=== PATIENT | female | born 1955 | race Caucasian/White ===

== ENCOUNTER 2019-04-12 10:26 | Outpatient (CLI) | payer OTHER, SELFPAY ==
--- NOTE | ~2019-04-12 | XR_ITS ---
EXAMINATION: XR cervical spine min 6V DATE: 04/12/2019 10:46 INDICATION: Neck pain. Left-sided radiculopathy. TECHNIQUE: 6 views of cervical spine including flexion and extension views were obtained. COMPARISON: Cervical spine radiographs 09/10/2004 FINDINGS: There is 11 degrees levoscoliosis of cervicothoracic spine. There is no abnormal motion wit h flexion or extension. Vertebral body heights are normal. There is moderately decreased disc height at C5-C6. At C5-C6, there is severe bilateral uncovertebral joint osteoarthritis. There is multilevel mild facet joint osteoarthritis. No central canal stenosis or prevertebral soft tissue swelling. IMPRESSION: 1. Moderate cervical spondylosis. 2. Cervicothoracic levoscoliosis. Reviewed, dictated and finalized at location A. EN PRINTER
== END 2019-04-12 10:27 | disposition home or self-care (01) ==
LOC: ANHIMG 10:31
PROVIDERS: PCP Emergency Medicine; Visit Provider Emergency Medicine
DX: M47.892 Other spondylosis, cervical region (principal)
CPT/HCPCS: 72052

== ENCOUNTER 2019-04-14 07:33 | Outpatient (CLI) | payer OTHER, SELFPAY ==
--- NOTE | ~2019-04-14 | MM_ITS ---
EXAMINATION: MM screening dalila BI w patricia HISTORY: Screening mammogram TECHNIQUE: Craniocaudal and mediolateral oblique 3-D tomosynthesis images were obtained and synthetic 2-D images were generated. CAD analysis was submitted and interpreted. COMPARISON: 11/23/2017, 02/06/2016, 03/30/2014 bilateral digital screening mammogram examinations BREAST PARENCHYMAL COMPOSITION: There are scattered areas of fibroglandular density. FINDINGS: Occasional bilateral benign calcifications. There is no evidence of suspicious mass, calcif ication, or architectural distortion to suggest malignancy in either breast. There has been no suspic ious interval change. IMPRESSION: 1. No mammographic evidence of malignancy. 2. Recommend routine screening mammography in one year. BI-RADS Category 2: Benign finding(s). Reviewed, dictated and finalized at location A. N [employer]
== END 2019-04-14 07:34 | disposition home or self-care (01) ==
LOC: ANHIMG 07:34
PROVIDERS: PCP Emergency Medicine; Visit Provider Emergency Medicine
DX: Z12.31 Encounter for screening mammogram for malignant neoplasm of breast (principal)
CPT/HCPCS: 77063; 77067

== ENCOUNTER 2019-05-10 07:07 | Outpatient (CLI) | payer OTHER, SELFPAY ==
--- NOTE | ~2019-05-10 | CT_ITS ---
EXAMINATION: CT lung screening DATE: 05/10/2019 07:48 INDICATION: History of smoking. Dependence. TECHNIQUE: Computed tomography (CT) of the chest was performed without intravenous contrast. The dose -length product was 160.05 mGy-cm. Automated exposure control and iterative reconstruction technique were employed. COMPARISON: Comparison to multiple prior studies sequentially, with oldest reviewed study dated 09/2016. FINDINGS: No significant thoracic lymphadenopathy. Heart size is normal. No pleural or pericardial ef fusion. Calcified granuloma left lower lung. There are emphysematous changes. There is a 2 mm subpleu ral nodule right upper lobe, likely benign. No focal airspace consolidation. No endobronchial lesions . There is diffuse idiopathic skeletal hyperostosis (DISH) of the thoracic spine. IMPRESSION: 1. Lung-RADS category 2: Benign appearance or behavior. Continue annual screening with noncontrast lo w-dose chest CT in 12 months. Reviewed, dictated and finalized at location A. IMPRESSION: 1. Lung-RADS category 2: Benign appearance or behavior. Continue annual screeni ng with noncontrast low-dose chest CT in 12 months.
== END 2019-05-10 07:08 | disposition home or self-care (01) ==
PROVIDERS: PCP Emergency Medicine; Visit Provider Emergency Medicine
DX: Z12.2 Encounter for screening for malignant neoplasm of respiratory organs (principal); Z87.891 Personal history of nicotine dependence
CPT/HCPCS: G0297

== ENCOUNTER 2019-07-13 10:34 | Outpatient (CLI) | payer OTHER, SELFPAY ==
[2019-07-13 11:20] LABS: Alanine Aminotransferase 24 U/L (4-35); Albumin Level 4.2 g/dL (3.5-5.1); Alkaline Phosphatase 107 U/L (38-126); Aspartate Amino Transferase 35 U/L (14-36); Bilirubin,Total 0.6 mg/dL (0.2-1.3); Blood Urea Nitrogen 9 mg/dL (7-17); Calcium 9.3 mg/dL (8.4-10.2); Carbon Dioxide 25 mmol/L (22-30); Chloride 106 mmol/L (98-107); Cholesterol 177 mg/dL (0-200); Estimated Glomerular Filt Rate > 60; Glucose 138 mg/dL (65-105); HDL Direct 37 mg/dL; Potassium 4.1 mmol/L (3.4-5.0); Sodium 136 mmol/L (137-145); Triglycerides 216 mg/dL (<150)
[2019-07-13 11:35] LABS: LDL Cholesterol Direct 111 mg/dL
== END 2019-07-13 10:35 | disposition home or self-care (01) ==
PROVIDERS: PCP Emergency Medicine; Visit Provider Internal Medicine Cardiovascular Disease
DX: E78.5 Hyperlipidemia, unspecified (principal)
CPT/HCPCS: 36415; 80053; 80061

== ENCOUNTER 2019-07-22 10:15 | Outpatient (RCR) | payer OTHER, SELFPAY ==
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
--- NOTE | 2019-07-18 09:22 | PCPTNOTE ---
Patient did not show up for scheduled appointment this date. Called pt due to NS. She thought her appt was for 07/18. Rescheduled her for Thursday.
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
== END 2019-07-26 08:40 | disposition home or self-care (01) ==
LOC: ANHPT 10:15
PROVIDERS: PCP Emergency Medicine; Visit Provider Emergency Medicine
DX: M54.12 Radiculopathy, cervical region (principal); M54.2 Cervicalgia
CPT/HCPCS: 97014; 97110; 97140; 97162; 97530; G0283

== ENCOUNTER 2020-08-27 08:43 | Outpatient (CLI) | payer OTHER, SELFPAY ==
--- NOTE | 2020-08-27 09:02 | ECHO_ITS ---
Patient Info Name: Liseth Jones Age: 64 years : 1955 Gender: Female Ht: 65 in Wt: 218 lbs BSA: 2.17 m2 HR: 62 bpm BP: 128 / 80 mmHg Technical Quality: Fair Exam Date: 08/27/2020 9:22 AM Exam Location: [facility] Patient Status: Outpatient Admit Date: 08/27/2020 Staff Ordering Physician: Vincenzo Grier DO Editor & Co Founder: Ruma Neumann RDCS Attending Provider: Vincenzo Grier DO Referring Physician: Marvel SOLORZANO; Exam Type: CA echo doppler color flow Study Info Indications R06.00 - Dyspnea, unspecified Complete two-dimensional, color flow and Doppler transthoracic echocardiogram is performed. Summary 1. Complete two-dimensional, color flow and Doppler transthoracic echocardiogram is performed. 2. Left ventricular chamber dimension is normal. 3. Left ventricular systolic function is normal, estimated at 60-65%. 4. The left ventricular diastolic function is grade II diastolic dysfunction. 5. E/e' 9 is minimally elevated. 6. There is trace mitral valve regurgitation. Left Ventricle E/e' 9 is minimally elevated. Left ventricular chamber dimension is normal. Left ventricular systolic function is normal, estimated at 60-65%. The left ventricular diastolic function is grade II diastolic dysfunction. Right Ventricle Right ventricular chamber dimension is normal. Right ventricular systolic function is normal. Left Atria Left atrial chamber dimension is normal. Right Atria Right atrial chamber dimension is normal. Aortic Valve The aortic valve is trileaflet. There is no aortic valve stenosis. There is no aortic valve regurgitation. Pulmonic Valve There is no pulmonic regurgitation. Mitral Valve There is no mitral valve stenosis. There is trace mitral valve regurgitation. Tricuspid Valve There is no tricuspid valve regurgitation. Pericardium/Pleural There is no pericardial effusion. Inferior Vena Cava Normal inferior vena cava with >50% collapse upon inspiration consistent with normal right atrial pressure, 5 mmHg. Aorta The aortic root size at the sinus of Valsalva is normal. Left Ventricular Outflow Tract Name Value Normal LVOT 2D LVOT Diameter 1.9 cm LVOT Doppler LVOT Peak Gradient 4 mmHg LVOT Mean Gradient 2 mmHg LVOT VTI 22 cm LVOT VTI/AV VTI Ratio 1.0 LVOT Stroke Volume 62 ml LVOT CO 3.7 l/min LVOT CI 1.7 l/min/m2 Pulmonic Valve Name Value Normal RVOT Doppler RVOT Peak Gradient 1 mmHg PV Doppler PV Peak Gradient 2 mmHg Mitral Valve
[2020-08-27 09:15] LABS: Alanine Aminotransferase 27 U/L (4-35); Albumin Level 4.2 g/dL (3.5-5.1); Alkaline Phosphatase 103 U/L (38-126); Anion Gap 5 mmol/L (8-16); Aspartate Amino Transferase 34 U/L (14-36); Bilirubin,Total 0.5 mg/dL (0.2-1.3); Blood Urea Nitrogen 15 mg/dL (7-17); Calcium 9.4 mg/dL (8.4-10.2); Carbon Dioxide 26 mmol/L (22-30); Chloride 106 mmol/L (98-107); Cholesterol 210 mg/dL (0-200); Estimated Glomerular Filt Rate 56; Glucose 198 mg/dL (65-105); HDL Direct 39 mg/dL; Potassium 5.2 mmol/L (3.4-5.0); Sodium 137 mmol/L (137-145); Triglycerides 310 mg/dL (<150)
[2020-08-27 09:26] LABS: LDL Cholesterol Direct 102 mg/dL
== END 2020-08-27 08:44 | disposition home or self-care (01) ==
PROVIDERS: PCP Emergency Medicine; Visit Provider Internal Medicine Cardiovascular Disease
DX: R06.00 Dyspnea, unspecified (principal); E78.5 Hyperlipidemia, unspecified
CPT/HCPCS: 36415; 80053; 80061; 93306

== ENCOUNTER 2020-12-19 06:34 | Outpatient (CLI) | payer OTHER, SELFPAY ==
--- NOTE | ~2020-12-19 | CT_ITS ---
EXAMINATION: CT lung screening DATE: 12/19/2020 07:03 INDICATION: Personal history of nicotine dependence TECHNIQUE: Computed tomography (CT) of the chest was performed without intravenous contrast. The dose -length product was 183.97 mGy-cm. Automated exposure control and iterative reconstruction technique were employed. COMPARISON: CT dated 05/10/2019 FINDINGS: There is atherosclerosis of the aorta and coronary arteries. Heart size is normal. No signi ficant pleural or pericardial effusion. Thyroid gland is unremarkable. No mediastinal lymphadenopathy . Upper abdomen is unremarkable. No pneumothorax. Mild emphysema. No endobronchial lesions. 2 mm righ t upper lobe nodule unchanged. There are a few additional 1-2 mm nodules. No focal consolidation. The re is diffuse idiopathic skeletal hyperostosis (DISH) of the thoracic spine. Accentuated thoracic kyp hosis. No focal lytic or blastic lesions. IMPRESSION: 1. Lung-RADS category 2: Benign appearance or behavior. Continue annual screening with noncontrast lo w-dose chest CT in 12 months. Reviewed, dictated and finalized at location B. IMPRESSION: 1. Lung-RADS category 2: Benign appearance or behavior. Continue annual screeni ng with noncontrast low-dose chest CT in 12 months.
== END 2020-12-19 06:35 | disposition home or self-care (01) ==
LOC: ANHIMG 06:35
PROVIDERS: PCP Emergency Medicine; Visit Provider Emergency Medicine
DX: Z12.2 Encounter for screening for malignant neoplasm of respiratory organs (principal); Z87.891 Personal history of nicotine dependence
CPT/HCPCS: 71271

== ENCOUNTER 2020-12-28 08:19 | Outpatient (CLI) | payer OTHER, SELFPAY ==
--- NOTE | ~2020-12-28 | MM_ITS ---
EXAMINATION: MM screening dalila BI w patricia HISTORY: Screening mammogram TECHNIQUE: Craniocaudal and mediolateral oblique 3-D tomosynthesis images were obtained and synthetic 2-D images were generated. CAD analysis was submitted and interpreted. COMPARISON: 04/14/2019, 11/19/2017, 02/06/2016 bilateral digital screening mammogram examinations BREAST PARENCHYMAL COMPOSITION: There are scattered areas of fibroglandular density. FINDINGS: There is no evidence of suspicious mass, calcification, or architectural distortion to sugg est malignancy in either breast. There has been no suspicious interval change. IMPRESSION: 1. No mammographic evidence of malignancy. 2. Recommend routine screening mammography in one year. BI-RADS Category 1: Negative Reviewed, dictated and finalized at location A.
== END 2020-12-28 08:20 | disposition home or self-care (01) ==
LOC: ANHIMG 08:20
PROVIDERS: PCP Emergency Medicine; Visit Provider Emergency Medicine
DX: Z12.31 Encounter for screening mammogram for malignant neoplasm of breast (principal)
CPT/HCPCS: 77063; 77067

== ENCOUNTER 2021-03-07 13:49 | Outpatient (CLI) | payer OTHER, SELFPAY ==
--- NOTE | 2021-03-11 21:06 | WPDPFTINT ---
PFT Procedure Performed PFT Procedure Performed Spirometry with Pre/Post Bronchodilator Plethysmography (Lung Vol) Diffusing Cap (DLCO) Flow Vol Loop PFT Interpretation DOS: 03/07/2021 REQUESTING: Dr Grier REASON FOR TESTING: dyspnea on exertion PULMONARY FUNCTION TESTS Results are impacted by the patient having coughing throughout the testing. Spirometry: Pre-bronchodilator FEV1 is 58% predicted, 1.42 L. This is moderately decreased. FVC is 72%, mildly decreased. FEV1/FVC is decreased, and this is consistent with airflow obstruction. [id number]% is decreased at 40%. after bronchodilator administration there is a 21% increase in FEF 25-75%. This does not reach a statistically significant threshold. Lung volumes: Total lung capacity is normal 94% predicted. Residual volume is increased 123% consistent with air trapping. RV/TLC is increased also consistent with air trapping. Airway resistance is normal 110%. Diffusion: DLCO is 42%, and increased to 59% when corrected for alveolar volume. Flow volume loop: There were only 2 flow volume loops that were acceptable, with mild scooping of the expiratory limb. IMPRESSION: This pulmonary function study shows a moderate obstructive ventilatory defect, air trapping, moderate diffusion impairment. No significant response to bronchodilator. This pattern can be seen in emphysema. Lack of response to bronchodilator should not preclude use if clinically indicated. Danay Mir MD
== END 2021-03-07 13:50 | disposition home or self-care (01) ==
LOC: ANHPFT 13:51
PROVIDERS: PCP Emergency Medicine; Visit Provider Internal Medicine Cardiovascular Disease
DX: R06.00 Dyspnea, unspecified (principal); R94.2 Abnormal results of pulmonary function studies
CPT/HCPCS: 94060; 94726; 94729

== ENCOUNTER 2021-06-20 09:15 | Outpatient (RCR) | payer OTHER, SELFPAY | END 2021-07-15 14:23 | disposition home or self-care (01) | LOC: ANHDMC 09:15 | PROVIDERS: PCP Emergency Medicine; Visit Provider Emergency Medicine | DX: E11.9 Type 2 diabetes mellitus without complications (principal); Z71.89 Other specified counseling | CPT/HCPCS: G0108 ==

== ENCOUNTER 2021-10-03 09:15 | Outpatient (RCR) | payer OTHER, SELFPAY | END 2021-10-07 16:31 | disposition home or self-care (01) | LOC: ANHDMC 09:15 | PROVIDERS: PCP Emergency Medicine; Visit Provider Emergency Medicine | DX: E11.9 Type 2 diabetes mellitus without complications (principal); Z71.89 Other specified counseling | CPT/HCPCS: G0108 ==

== ENCOUNTER 2022-01-14 14:09 | Outpatient (CLI) | payer MEDICARE, SELFPAY ==
--- NOTE | ~2022-01-14 | CT_ITS ---
EXAMINATION: CT lung screening DATE: 01/14/2022 14:36 INDICATION: Personal history of nicotine dependence, current smoker with 50 pack year history TECHNIQUE: Computed tomography (CT) of the chest was performed without intravenous contrast. The dose -length product (DLP) was 146.11 mGy-cm. Automated exposure control and iterative reconstruction tech Spockly were employed. COMPARISON: 12/19/2020 FINDINGS: There is mild emphysema. Stable small pulmonary nodules measure 1 to 2 mm. No new pulmonary nodule is identified. There is mild dependent atelectasis. No pleural effusion or pneumothorax. No p athologically enlarged thoracic lymph nodes are identified. The heart size is normal. There is calcif ied coronary artery atherosclerosis. There are bridging osteophytes at multiple levels in the spine, consistent with diffuse idiopathic skeletal hyperostosis (DISH). IMPRESSION: 1. Lung-RADS category 2: Benign appearance or behavior. Continue annual screening with noncontrast lo w-dose chest CT in 12 months. Reviewed, dictated and finalized at location F. 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 Lung-RADS category 2: Benign appearance or behavior. Continue annual screeni ng with noncontrast low-dose chest CT in 12 months.
== END 2022-01-14 14:10 | disposition home or self-care (01) ==
PROVIDERS: PCP Nurse Practitioner Family; Visit Provider Nurse Practitioner Family
DX: Z12.2 Encounter for screening for malignant neoplasm of respiratory organs (principal); Z87.891 Personal history of nicotine dependence
CPT/HCPCS: 71271

== ENCOUNTER → 2022-05-14 10:28 | Outpatient (CLI) | payer MEDICARE, SELFPAY ==
--- NOTE | ~2022-05-14 | XR_ITS ---
EXAMINATION: [id number] DATE: 05/14/2022 11:16 INDICATION: Neck pain. TECHNIQUE: 4 views of cervical spine were obtained. COMPARISON: Cervical spine radiographs 04/12/2019 FINDINGS: There is 13 degrees levoscoliosis of cervicothoracic spine. Vertebral body heights are norm al. There is moderately decreased disc height at C5-C6. There is multilevel mild to moderate facet alondra int osteoarthritis. There is mild central canal stenosis at C5-C6. No prevertebral soft tissue swelli ng. IMPRESSION: 1. Moderate cervical spondylosis, stable from 04/12/2019. 2. Cervicothoracic levoscoliosis. Reviewed, dictated and finalized at location A.
--- NOTE | ~2022-05-14 | XR_ITS ---
Lumbosacral Spine: AP and lateral views Clinical History: Pain Findings: The normal lordotic curve is maintained. No fracture or subluxation seen. There are mild to moderate degenerative disc narrowing throughout the lumbar spine. There is facet arthropathy, advanc ed at L4-L5 and L5-S1. Atherosclerotic calcifications of the aorta noted. The sacroiliac joints are n ormally outlined. Impression: [id number] degenerative spondylosis, as detailed above. Reviewed, dictated and finalized at location M. Impression: [id number] degenerative spondylosis, as detailed above.
== END ==
PROVIDERS: PCP Nurse Practitioner Family; Visit Provider Nurse Practitioner Family
DX: M79.604 Pain in right leg (principal); M47.22 Other spondylosis with radiculopathy, cervical region; M47.896 Other spondylosis, lumbar region
CPT/HCPCS: 72040; 72100

== ENCOUNTER 2023-01-16 11:04 | Outpatient (CLI) | payer MEDICARE, SELFPAY ==
--- NOTE | ~2023-01-16 | CT_ITS ---
CT Scan of the Chest without Contrast: Clinical Indication: Lung cancer screening, current smoker Technique: Contiguous sections were acquired throughout the chest without intravenous contrast. Dose reduction technique was used on this scan by utilizing automated exposure control and iterative recon struction technique. The dose-length product (DLP) was 120.20 mGy-cm. COMPARISON: 01/14/2022, 12/19/2020 Findings: There is no evidence of any significant mediastinal, hilar or axillary lymphadenopathy. There is exte nsive atherosclerotic calcifications of the aorta and coronary arteries. There is no evidence of pleural or pericardial effusion. The lungs are clear. No pulmonary nodules or infiltrates are noted. Images through the upper abdomen reveal no abnormalities. There is DISH of the thoracic spine. Impression: Lung RADS 1: Negative. 12 month follow-up screening CT advised. Reviewed, dictated and finalized at [facility]. [employer] AFFAIRS DIRECTOR Impression: Lung RADS 1: Negative. 12 month follow-up screening CT advised.
== END 2023-01-16 11:05 | disposition home or self-care (01) ==
PROVIDERS: PCP Family Medicine; Visit Provider Family Medicine
DX: Z12.2 Encounter for screening for malignant neoplasm of respiratory organs (principal); F17.210 Nicotine dependence, cigarettes, uncomplicated
CPT/HCPCS: 71271

== ENCOUNTER 2023-02-02 14:15 | Outpatient (CLI) | payer MEDICARE, SELFPAY ==
--- NOTE | ~2023-02-02 | MM_ITS ---
EXAMINATION: MM screening [facility] BI w patricia HISTORY: Screening mammogram TECHNIQUE: Craniocaudal and mediolateral oblique 3-D tomosynthesis images were obtained and synthetic 2-D images were generated. CAD analysis was submitted and interpreted. COMPARISON: 12/28/2020, 04/14/2019, 11/23/2017 BREAST PARENCHYMAL COMPOSITION: There are scattered areas of fibroglandular density. FINDINGS: No suspicious mass, calcification, or architectural distortion are identified in either stephanie ast to suggest malignancy. There has been no suspicious interval change. IMPRESSION: 1. No mammographic evidence of malignancy. 2. Recommend routine screening mammography in one year. BI-RADS Category 1: Negative Reviewed, dictated and finalized at location A. ARCH AND EVALUATION ANALYST
== END 2023-02-02 14:16 | disposition home or self-care (01) ==
LOC: ANHIMG 14:16
PROVIDERS: PCP Family Medicine; Visit Provider Family Medicine
DX: Z12.31 Encounter for screening mammogram for malignant neoplasm of breast (principal)
CPT/HCPCS: 77063; 77067

== ENCOUNTER 2023-04-03 09:45 | Outpatient (CLI) | payer MEDICARE, MEDICAID, SELFPAY ==
--- NOTE | ~2023-04-03 | DEXA_ITS ---
Bone Density Report Name: TAWANNA ARENAS Age: 67 Sex: Female Ethnicity: White Date of : 1955 Indication: postmenopausal; screening for osteoporosis; height loss; hysterectomy; Referring Provider: AISHA LEMA Study: Bone densitometry was performed. Exam Date: April 03, 2023 Accession number: [id number] Bone Density: Region BMD T-score Z-score Classification AP Spine(L1-L4) 1.129 0.7 2.6 Normal Femoral Neck (Left) 0.800 -0.4 1.1 Normal Total Hip (Left) 0.906 -0.3 1.0 Normal Femoral Neck (Right) 0.776 -0.7 0.9 Normal Total Hip (Right) 0.944 0.0 1.3 Normal Total Hip Mean 0.925 -0.2 1.2 Normal World Health Organization criteria for BMD impression classify patients as: Normal (T-score at or above -1.0), Osteopenia (T-score between -1.0 and -2.5), or Osteoporosis (T-score at or below -2.5). 10-year Fracture Risk: FRAX not reported because: All T-scores for Spine Total, Hip Total, Femoral Neck at or above -1.0 Clinical Information Provided by Patient: Smokes Has used the following medications: Vitamin D Has the following medical conditions: Hysterectomy Patient maximum height was 67 Menopause Age: 30 No regular weight bearing exercise Does not regularly consume dairy products Drinks caffeinated beverages Onset of menses at age 14 Number of children 2 Impression: The patient has normal bone mass. The patient has risk factors, including: smoking. Discussion: BONE DENSITY IS ABOVE THE MINIMUM DESIRABLE LEVEL AT ALL SKELETAL SITES TESTED. This patient?s bone mineral density is above the minimum desirable level (T-score -1.0 or better) at all sites measured. The patient should follow a healthful lifestyle (good nutrition with adequate calcium and vitamin D, and appropriate weight-bearing exercise). Follow-Up: Consider repeating this study in 5 years or sooner if there is some new clinical indication. Reported by: BELKIS on 04/03/2023 10:09:00 AM. Reviewed, dictated and finalized at location [facility]
== END 2023-04-03 09:46 | disposition home or self-care (01) ==
LOC: ANHIMG 09:47
PROVIDERS: PCP Family Medicine; Visit Provider Family Medicine
DX: Z78.0 Asymptomatic menopausal state (principal)
CPT/HCPCS: 77080

== ENCOUNTER 2023-04-29 12:15 | Outpatient (CLI) | payer MEDICARE, SELFPAY ==
[2023-04-29 13:01] LABS: Appearance Urine Clear (Clear); Bacteria Urine None Seen /hpf; Bilirubin Urine Negative (Negative); Color Urine Yellow (Yellow); Glucose Urine UA Negative (Negative); Ketones Urine Negative (Negative); Leukocyte Esterase Ur Trace LEU/UL (NEGATIVE); Nitrate Urine Negative (Negative); Non Pathogenic Casts 0-2; Protein Urine Negative (Negative); Specific Grav Ur 1.019 (1.001-1.035); Squamous Epithelial Cell Urine Occasional /hpf (Few); Urobilinogen Urine 0.2 mg/dL (<2.0); WBC Urine 0-5 /hpf (0-3); pH Urine 6.5 (5.0-9.0)
[2023-04-29 13:06] LABS: Hemoglobin A1C 5.7 % (<5.7)
[2023-04-29 13:09] LABS: Alanine Aminotransferase 27 U/L (6-35); Albumin Level 4.3 g/dL (3.5-5.1); Alkaline Phosphatase 76 U/L (38-126); Anion Gap 5 mmol/L (8-16); Aspartate Amino Transferase 40 U/L (14-36); Bilirubin,Total 0.9 mg/dL (0.2-1.3); Blood Urea Nitrogen 9 mg/dL (7-17); CRP < 0.5 mg/dL (<1.0); Calcium 9.4 mg/dL (8.4-10.2); Carbon Dioxide 26 mmol/L (22-30); Chloride 108 mmol/L (98-107); Estimated Glomerular Filt Rate > 60; Glucose 96 mg/dL (65-110); Potassium 4.2 mmol/L (3.4-5.0); Sodium 139 mmol/L (137-145)
[2023-04-29 13:20] LABS: Add Urine Microscopic? YES
[2023-04-29 13:32] LABS: Erythrocyte Sedimentation Rate 21 mm/hr (0-20)
[2023-04-29 13:48] LABS: Creatinine Urine 126.8 mg/dL
[2023-04-29 13:53] LABS: MALB Creatinine Ratio 6.2 mg/g (0-30); Microalbumin Urine Random 7.8 mg/L (0-16.7)
[2023-04-29 14:07] LABS: Iron 148 ug/dL (37-170)
[2023-04-29 14:16] LABS: Percent Iron Saturation 34 % (20-50)
== END 2023-04-29 12:16 | disposition home or self-care (01) ==
LOC: ANHLAB 12:24
PROVIDERS: PCP Family Medicine; Visit Provider Family Medicine
DX: R53.83 Other fatigue (principal); E78.5 Hyperlipidemia, unspecified; E11.9 Type 2 diabetes mellitus without complications; E55.9 Vitamin D deficiency, unspecified; I10 Essential (primary) hypertension; I25.10 Atherosclerotic heart disease of native coronary artery without angina pectoris; D75.1 Secondary polycythemia; Z76.89 Persons encountering health services in other specified circumstances
CPT/HCPCS: 36415; 80053; 81001; 82043; 83036; 83540; 83550; 85652; 86140

== ENCOUNTER 2023-06-30 10:31 | Outpatient (CLI) | payer MEDICARE, SELFPAY ==
--- NOTE | ~2023-06-30 | XR_ITS ---
Supine and upright views of the abdomen Clinical history: Microscopic hematuria Findings: Bowel gas pattern is nonspecific. No evidence for obstruction or free air. No abnormal mass lesion or calcification is seen. Osseous structures are intact. Impression: No significant abnormality is seen. Reviewed, dictated and finalized at [facility]. Impression: No significant abnormality is seen.
== END 2023-06-30 10:32 | disposition home or self-care (01) ==
PROVIDERS: PCP Family Medicine; Visit Provider Nurse Practitioner Family
DX: R31.29 Other microscopic hematuria (principal)
CPT/HCPCS: 74018

== ENCOUNTER 2023-10-16 07:03 | Outpatient (CLI) | payer MEDICARE, SELFPAY ==
[2023-10-16 07:35] LABS: Alanine Aminotransferase 18 U/L (6-35); Albumin Level 4.2 g/dL (3.5-5.1); Alkaline Phosphatase 83 U/L (38-126); Aspartate Amino Transferase 27 U/L (14-36); Bilirubin,Total 0.5 mg/dL (0.2-1.3)
[2023-10-16 07:36] LABS: Cholesterol 145 mg/dL (0-200); HDL Direct 47 mg/dL; Triglycerides 152 mg/dL (<150)
[2023-10-16 07:47] LABS: LDL Cholesterol Direct 60 mg/dL
[2023-10-16 08:48] LABS: Hepatitis B Surface Antigen Negative (Negative)
[2023-10-16 08:54] LABS: HAV RESULT Negative (Negative); Hepatitis B Core IgM Result Negative (Negative)
[2023-10-16 09:05] LABS: Hepatitis C Virus Antibody Negative (Negative)
== END 2023-10-16 07:04 | disposition home or self-care (01) ==
LOC: ANHLAB 07:07
PROVIDERS: PCP Family Medicine; Referring Provider Family Medicine; Visit Provider Internal Medicine Cardiovascular Disease
DX: R74.01 Elevation of levels of liver transaminase levels (principal); R53.83 Other fatigue; E78.5 Hyperlipidemia, unspecified
CPT/HCPCS: 36415; 80061; 80074; 80076

== ENCOUNTER 2024-01-21 08:52 | Outpatient (CLI) | payer MEDICARE, SELFPAY ==
[2024-01-21 09:29] LABS: Hematocrit 53.4 % (37.0-47.0); Hemoglobin 19.3 g/dL (12.0-15.0); Mean Corpuscular HGB Conc 36.1 g/dl (32-36); Mean Corpuscular Hemoglobin 36.6 pg (26-34); Mean Corpuscular Volume 101.3 fl (80-100); Mean Platelet Volume 9.6 fl (7.4-10.4); Platelet Count Result 257 k/mm3 (150-375); Red Blood Count 5.27 M/mm3 (4.2-5.4); Red Cell Distribution Width 13.6 % (11.5-14.5); White Blood Count 7.4 K/mm3 (4.5-10.0)
[2024-01-21 09:37] LABS: Alanine Aminotransferase 16 U/L (6-35); Albumin Level 4.4 g/dL (3.5-5.1); Alkaline Phosphatase 83 U/L (38-126); Anion Gap 4 mmol/L (4-12); Aspartate Amino Transferase 25 U/L (14-36); Bilirubin,Total 0.7 mg/dL (0.2-1.3); Blood Urea Nitrogen 12 mg/dL (7-17); Calcium 9.6 mg/dL (8.4-10.2); Carbon Dioxide 26 mmol/L (22-30); Chloride 108 mmol/L (98-107); Estimated Glomerular Filt Rate > 60; Glucose 112 mg/dL (65-110); Potassium 4.4 mmol/L (3.4-5.0); Sodium 138 mmol/L (137-145)
[2024-01-21 10:05] LABS: Add Urine Microscopic? YES; Appearance Urine Turbid (Clear); Bacteria Urine 4+ /hpf; Bilirubin Urine Negative (Negative); Blood Urine 2+ (Negative); Color Urine Yellow (Yellow); Glucose Urine UA Negative (Negative); Ketones Urine Negative (Negative); Leukocyte Esterase Ur 3+ LEU/UL (Negative); Nitrate Urine Positive (Negative); Non Pathogenic Casts 0-2; Protein Urine 2+ mg/dL (Negative); Specific Grav Ur 1.013 (1.001-1.035); Squamous Epithelial Cell Urine None Seen /hpf (Few); Urobilinogen Urine 0.2 mg/dL (<2.0); WBC Urine >100 /hpf (0-3); pH Urine 5.5 (5.0-9.0)
[2024-01-21 10:39] LABS: Hemoglobin A1C 5.5 % (<5.7)
[2024-01-21 11:10] LABS: Creatinine Urine 88.9 mg/dL
[2024-01-21 11:28] LABS: MALB Creatinine Ratio 491.5 mg/g (0-30); Microalbumin Urine Random 436.9 mg/L (0-16.7)
== END 2024-01-21 08:53 | disposition home or self-care (01) ==
PROVIDERS: PCP Family Medicine; Visit Provider Family Medicine
DX: N39.0 Urinary tract infection, site not specified (principal); R53.83 Other fatigue; E55.9 Vitamin D deficiency, unspecified; E11.9 Type 2 diabetes mellitus without complications; I25.10 Atherosclerotic heart disease of native coronary artery without angina pectoris; I10 Essential (primary) hypertension; E78.5 Hyperlipidemia, unspecified
CPT/HCPCS: 36415; 80053; 81001; 82043; 83036; 85027

== ENCOUNTER 2024-01-22 09:45 | Outpatient (CLI) | payer MEDICARE, SELFPAY ==
[2024-01-22 10:37] LABS: Basophils Absolute Auto 0.1 K/mm3 (0.0-0.1); Eosinophils Percent Auto 0.7 % (0-4.4); Hematocrit 51.6 % (37.0-47.0); Hemoglobin 18.7 g/dL (12.0-15.0); Immature Granulocyte Absolute 0.02 K/mm3 (0.00-0.031); Immature Granulocyte Percent A 0.3 % (0-0.5); Lymphocytes Absolute Auto 2.04 K/mm3 (0.9-3.2); Lymphocytes Percent Auto 35.5 % (18.3-44.2); Mean Corpuscular HGB Conc 36.2 g/dl (32-36); Mean Corpuscular Hemoglobin 36.8 pg (26-34); Mean Corpuscular Volume 101.6 fl (80-100); Mean Platelet Volume 9.6 fl (7.4-10.4); Monocytes Absolute Auto 0.5 K/mm3 (0.1-0.6); Monocytes Percent Auto 9.2 % (2.6-8.5); Neutrophils Absolute Auto 3.1 K/mm3 (1.3-6.7); Neutrophils Percent Auto 53.3 % (45.5-73.1); Platelet Count Result 242 k/mm3 (150-375); Red Blood Count 5.08 M/mm3 (4.2-5.4); Red Cell Distribution Width 13.6 % (11.5-14.5); White Blood Count 5.8 K/mm3 (4.5-10.0)
== END 2024-01-22 09:46 | disposition home or self-care (01) ==
PROVIDERS: PCP Family Medicine; Visit Provider Family Medicine
DX: E78.5 Hyperlipidemia, unspecified (principal); I10 Essential (primary) hypertension; E11.9 Type 2 diabetes mellitus without complications; E55.9 Vitamin D deficiency, unspecified; I25.10 Atherosclerotic heart disease of native coronary artery without angina pectoris; D75.1 Secondary polycythemia; R53.83 Other fatigue; R74.01 Elevation of levels of liver transaminase levels
CPT/HCPCS: 36415; 81270; 82668; 85025

== ENCOUNTER 2024-03-15 10:41 | Outpatient (CLI) | payer MEDICARE, SELFPAY ==
[2024-03-15 11:15] LABS: Basophils Absolute Auto 0.1 K/mm3 (0.0-0.1); Basophils Percent Auto 0.9 % (0.2-1.2); Eosinophils Absolute Auto 0.1 K/mm3 (0-0.3); Eosinophils Percent Auto 0.9 % (0-4.4); Hematocrit 51.7 % (37.0-47.0); Hemoglobin 18.4 g/dL (12.0-15.0); Immature Granulocyte Absolute 0.02 K/mm3 (0.00-0.031); Immature Granulocyte Percent A 0.3 % (0-0.5); Lymphocytes Absolute Auto 2.06 K/mm3 (0.9-3.2); Lymphocytes Percent Auto 30.4 % (18.3-44.2); Mean Corpuscular HGB Conc 35.6 g/dl (32-36); Mean Corpuscular Hemoglobin 35.3 pg (26-34); Mean Corpuscular Volume 99.2 fl (80-100); Mean Platelet Volume 9.1 fl (7.4-10.4); Monocytes Absolute Auto 0.6 K/mm3 (0.1-0.6); Neutrophils Percent Auto 58.5 % (45.5-73.1); Platelet Count Result 241 k/mm3 (150-375); Red Blood Count 5.21 M/mm3 (4.2-5.4); Red Cell Distribution Width 13.5 % (11.5-14.5); White Blood Count 6.8 K/mm3 (4.5-10.0)
[2024-03-15 15:11] LABS: Alanine Aminotransferase 27 U/L (6-35); Albumin Level 4.4 g/dL (3.5-5.1); Alkaline Phosphatase 88 U/L (38-126); Anion Gap 6 mmol/L (4-12); Aspartate Amino Transferase 37 U/L (14-36); Bilirubin,Total 0.7 mg/dL (0.2-1.3); Blood Urea Nitrogen 14 mg/dL (7-17); Calcium 9.6 mg/dL (8.4-10.2); Carbon Dioxide 26 mmol/L (22-30); Chloride 106 mmol/L (98-107); Estimated Glomerular Filt Rate > 60; Glucose 93 mg/dL (65-110); Sodium 138 mmol/L (137-145)
[2024-03-15 16:29] LABS: Folic Acid 5.5 ng/mL (2.76->20); Vitamin B12 > 1000.0 pg/mL (239-931)
[2024-03-15 18:52] LABS: Iron 182 ug/dL (37-170)
[2024-03-15 19:06] LABS: Percent Iron Saturation 41 % (20-50)
[2024-03-23 12:17] LABS: Block/Specimen ID NG; JAK2 V617F Mutation NOT DETECTED (NOT DETECTED); Specimen Source Blood
== END 2024-03-15 10:42 | disposition home or self-care (01) ==
LOC: ANHLAB 10:43
PROVIDERS: PCP Family Medicine; Visit Provider Internal Medicine Hematology & Oncology
DX: D75.1 Secondary polycythemia (principal); D53.9 Nutritional anemia, unspecified
CPT/HCPCS: 36415; 80053; 81270; 82607; 82668; 82728; 82746; 83540; 83550; 85025

== ENCOUNTER 2024-04-22 05:21 | Day surgery (SDC) | payer MEDICARE, SELFPAY ==
[2024-04-06 13:04] VITALS: BMI 30.8
--- OUTSIDE RECORDS SUMMARY | 2024-04-22 05:25 | XMS_ITS | Referral Summary ---
Author Organization [facility] [employer] Address [address] [place] [address] Care Team Providers Care Dermatology Specialist Name Role Phone Anuj Choudhary MD Primary Care Provider [phone] Source Comments [facility] [employer],non-owned Affiliates and Associated Physician Practices is amultiple site organization consisting of ambulatory clinics and hospital sitesin [place], [place], [place] and [place]. This disclosure is being madepursuant to the Care Everywhere program and may not contain all information available regarding this patient. Last updated 17.[facility] [employer] Allergies Active Allergy Reactions Criticality Noted Date Comments Iron Rash Medium 03/11/2016 Medications * Be aware that medications may not be up to date on this document. Alwaysverify current medications with the patient. Medication Sig Dispensed Refills Start Date End Date Status metoprolol tartrate (LOPRESSOR) 25 MG tablet take 1 tablet by oral route 2 times every day 02/20/2016 Active glimepiride (AMARYL) 1 MG tablet Take 1 tablet by mouth once daily 04/30/2021 Active Blood Glucose Monitoring Suppl (ONE TOUCH ULTRA 2) w/Device KIT USE 1 TO CHECK GLUCOSE ONCE DAILY 01/02/2021 Active ONETOUCH ULTRA test strip USE 1 STRIP TO CHECK GLUCOSE ONCE DAILY 01/02/2021 Active Lancets (ONETOUCH DELICA PLUS 33G EXTRA FINE LANCET) USE 1 TO CHECK GLUCOSE TWICE DAILY NEEDED 08/01/2021 Active lisinopril (PRINIVIL; ZESTRIL) 2.5 MG tablet Take 2.5 mg by mouth once daily 08/01/2021 Active metFORMIN (GLUCOPHAGE) 500 MG tablet Take 1 tablet by mouth 01/02/2021 Active rosuvastatin (CRESTOR) 20 MG tablet Take 1 tablet by mouth 01/02/2021 Active [place]-3 Fatty Acids (FISH OIL) 1000 MG capsule Active APPLE CIDER VINEGAR PO Take 450 mg by mouth Acti ve aspirin EC (ECOTRIN) 325 MG tablet Take 325 mg by mouth once daily Active acetaminophen (TYLENOL) 500 MG tablet Take 500 mg by mouth every 4 hours as needed for Fever or Pain Maximum allowable Acetaminophen amount = 4 Grams (4000 mg) / 24 hours. Active sulfamethoxazole-t rimethoprim (BACTRIM DS; SEPTRA DS) 800-160 MG tablet Take 1 (one) tablet by mouth 2 times daily 14 tablet 08/30/2021 Active Immunizations Name Administration Dates Next Due INFLUENZA VACCINE 11/29/2018 Social History Tobacco Use Types Packs/Day Years Used Date Smoking Tobacco: Every Day Cigarettes Smokeless Tobacco: Never Tobacco Cessation:Ready to Q uit: No; Counseling Given: Yes Alcohol Use Standard Drinks/Week Comments No 0 (1 standard drink = 0.6 oz pur e alcohol) Sex and Gender Information Value Date Recorded Sex Assigned at Not on file Gender Identity Not on file Sexual Orientation Not on file Last Filed Vital Signs Vital Sign Reading Time Taken Comments Blood Pressure 125/71 08/30/2021 10:02 AM CDT Pulse 72 08/30/2021 10:02 AM CDT Temperature 36.2 C (97.2 F) 03/03/2019 8:30 AM PLATE MAKER ZINC Respiratory Rate 11 05/15/2016 2:45 PM CDT Oxygen Saturation 98% 08/30/2021 10:02 AM CDT Inhaled Oxygen Concentration - - Weight 95.7 kg (211 lb) 02/26/2018 8:06 AM PLATE MAKER ZINC Height 165.1 cm (5' 5 ) 02/26/2018 8:06 AM PLATE MAKER ZINC Body Mass Index 35.11 02/26/2018 8:06 AM PLATE MAKER ZINC Functional Status Functional Status Response Date of Assess ment Is person deaf or have serious hearing difficult y? No 03/21/2016 Is person blind or have serious difficulty seein g? No 03/21/2016 Does person have serious dif ficulty walking/climbing stairs? No 03/21/2016 Does person have difficulty dressing/bathing? No 03/21/2016 Does person have difficulty doing errands alone? No 03/21/2016 Cognitive Status Response Date of Assessm ent Does person have difficulty concentrating/remembering/making decisions? No 03/21/2016 Plan of Treatment Not on file Advance Directives * Full Code (Latest Code Status on File) Date Activated Date Inactivated Comments 03/21/2016 6:54 PM 03/22/2016 3:04 PM Care Teams Dermatology Specialist Relationship Specialty Start Date End Date Anuj Choudhary MD [id number] [facility] [address] [facility] [address] [place] [address] PCP - General Family Medicine 03/11/16
--- OUTSIDE RECORDS SUMMARY | 2024-04-22 05:25 | XMS_ITS | Continuity of Care Document ---
Author Organization [facility] Address [address] [place] [address] Phone Care Team Providers Care Embedded Systems Engineer Name Role Phone Anuj Choudhary MD Unavailable [...] Diagnoses Date Provider Providers Copied on Encounter [facility], [address], [place], [place], [address], [place] tel:[phone] [facility] No Information 3 Kenrick Leslie. [address], [place], [place], [address] , [place]. tel:[phone] [facility], [address], [place], [place], [address], [place] tel:[phone] [facility] No Information 2 Kenrick Leslie. [address], [place], [place], [address] , [place]. tel:[phone] OFFICE/OUTPA TIENT VISIT, [facility], [address], [place], [place], [address], [place] tel:[phone] [facility] sleep apnea1 (chief complaint) DM (chief complaint) phos1 (chief complaint) HTN (chief complaint) HyperlipidemiaEssen tial (primary) hypertensionType 2 diabetes mellitus without complicationsOther disorders of phosphorus metabolismSleep apnea 2 Kenrick Padilla [address], [place], [place], [address] , [place]. tel:[phone] Referring Provider: Anuj Choudhary [address], [place], [place], [address]. tel:[phone] OFFICE/OUTPA TIENT VISIT, [facility], [address], [place], [place], [address], [place] tel:[phone] [facility] HLP (chief complaint) DM (chief complaint) HTN (chief complaint) hematuria1 (chief complaint) sleep apnea1 (chief complaint) back pani1 (chief complaint) HyperlipidemiaType 2 diabetes mellitus without complicationsHematu riaEssential (primary) hypertensionLumbago with sciatica, right sideSecondary polycythemia Mar- 2 Kenrick Leslie. [address], [place], [place], [address] , [place]. tel:[phone] Referring Provider: Zen Pollard [address], [place], [place], [address]. tel:[phone] OFFICE/OUTPA TIENT VISIT, EST [facility], [address], [place], [place], [address], [place] tel:[phone] [facility] Medicine hematuria1 (chief complaint) polycythem ia1 (chief complaint) DM (chief complaint) HLP (chief complaint) Secondary polycythemiaHyperli pidemiaType 2 diabetes mellitus without complicationsHematu riaDermatophytosis of nail Jan- 1 Kenrick Leslie. [address], [place], [place], [address] , [place]. tel:[phone] Referring Provider: Zen Pollard [address], [place], [place], [address]. tel:[phone] PREV VISIT, EST, AGE 40-64 [facility], [address], [place], [place], [address], [place] tel:[phone] [facility] Medicine physical (chief complaint) Encounter for general adult medical examination without abnormal findings 1 Kenrick Leslie. [address], [place], [place], [address] , [place]. tel:[phone] Referring Provider: Zen Pollard [address], [place], [place], [address]. tel:[phone] OFFICE/OUTPA TIENT VISIT, EST [facility], [address], [place], [place], [address], [place] tel:[phone] [facility] Medicine lymph node1 (chief complaint) HTN (chief complaint) HLP (chief complaint) Essential (primary) hypertensionSeconda ry polycythemiaTobacco useHyperlipidemiaLy mphadenopathyEncoun ter for oth screening for malignant neoplasm of breastHyperglycemia 1 Kenrick Leslie. [address], [place], [place], [address] , [place]. tel:[phone] Referring Provider: Zen Pollard [address], [place], [place], [address]. tel:[phone] PREV VISIT, EST, AGE 40-64 [facility], [address], [place], [place], [address], [place] tel:[phone] [facility] PHysical (chief complaint) Encntr for general adult medical exam w/o abnormal findings 0 Kenrick Leslie. [address], [place], [place], [address] , [place]. tel:[phone] Referring Provider: Zen Pollard [address], [place], [place], [address]. tel:[phone] OFFICE/OUTPA TIENT VISIT, EST [facility], [address], [place], [place], [address], [place] tel:[phone] [facility] HTN (chief complaint) hearing loss1 (chief complaint) fatty liver1 (chief complaint) hematuria1 (chief complaint) HematuriaEssential (primary) hypertensionFatty liverUmbilical herniaHearing loss 9 Kenrick Leslie. [address], [place], [place], [address] , [place]. tel:[phone] Referring Provider: Zen Pollard [address], [place], [place], [address]. tel:[phone] OFFICE/OUTPA TIENT VISIT, EST [facility], [address], [place], [place], [address], [place] tel:[phone] [facility] HLp (chief complaint) polycythmi a1 (chief complaint) low D (chief complaint) hematuria1 (chief complaint) hearing loss1 (chief complaint) Body mass index (BMI) 34.0-34.9, adultHematuriaEssen tial (primary) hypertensionSeconda ry polycythemiaHearing lossTobacco useHyperlipidemia 8 Kenrick Leslie. [address], [place], [place], [address] , [place]. [phone] Referring Provider: Zen Pollard [address], [place], [place], [address]. tel:[phone] PREV VISIT, EST, AGE 40-64 [facility], [address], [place], [place], [address], [place] tel:[phone] [facility] PHysical (chief complaint) Encounter for general adult medical exam w abnormal findingsHyperlipide miaEssential (primary) hypertensionHematur iaCoronary artery disease of quileute coronary artery without angina pectoris 8 Kenrick Leslie. [address], [place], [place], [address] , [place]. [phone] Referring Provider: Zen Pollard [address], [place], [place], [address]. tel:[phone] OFFICE/OUTPA TIENT VISIT, [facility], [address], [place], [place], [address], [place] tel:[phone] [facility] HTN (chief complaint) hematuria1 (chief complaint) HLP (chief complaint) tobacco1 (chief complaint) skin1 (chief complaint) Essential (primary) hypertensionHyperli pidemiaNevus, non-neoplasticHemat uria 7 Kenrick Leslie. [address], [place], [place], [address] , [place]. [phone] Referring Provider: Zen Poll[address], [place], [place], [address]. tel:[phone] OFFICE/OUTPA TIENT VISIT, EST [facility], [address], [place], [place], [address], [place] tel:[phone] [facility] tobacco1 (chief complaint) hematuria1 (chief complaint) HLP (chief complaint) HTN (chief complaint) Essential (primary) hypertensionTobacco useHyperlipidemiaHe maturia 7 Kenrick Leslie. [address], [place], [place], [address] , [place]. [phone] Referring Provider: Zen Pollard [address], [place], [place], [address]. tel:[phone] OFFICE/OUTPA TIENT VISIT, [facility], [address], [place], [place], [address], [place] tel:[phone] [facility] hematuria1 (chief complaint) knee pain1 (chief complaint) HTN (chief complaint) HLP (chief complaint) HematuriaPain in right kneeHyperlipidemiaE ssential (primary) hypertension 6 Kenrick Leslie. [address], [place], [place], [address] , [place]. [phone] Referring Provider: Zen Pollard [address], [place], [place], [address]. tel:[phone] OFFICE/OUTPA TIENT VISIT, [facility], [address], [place], [place], [address], [place] [phone] [facility] hematuria1 (chief complaint) polycyther mia1 (chief complaint) HTN (chief complaint) knee pian1 (chief complaint) HematuriaSecondary polycythemiaEssenti al (primary) hypertensionBody mass index (BMI) 35.0-35.9, adult Jan- 6 Kenrick Leslie. [address], [place], [place], [address] , [place]. [phone] Referring Provider: Zen Pollard [address], [place], [place], [address]. tel:[phone] OFFICE/OUTPA TIENT VISIT, [facility], [address], [place], [place], [address], [place] tel:[phone] [facility] Medicine HLP (chief complaint) polycyther mia1 (chief complaint) hematuria1 (chief complaint) HyperlipidemiaSecon delfina polycythemiaHematur iaVitamin D deficiency, unspecified 6 Kenrick Leslie. [address], [place], [place], [address] , [place]. tel:[phone] Referring Provider: Anuj Choudhary [address], [place], [place], [address]. tel:[phone] PREV VISIT, NEW, AGE 40-64 [facility], [address], [place], [place], [address], [place] tel:[phone] [facility] Medicine Physical (chief complaint) Encounter for general adult medical exam w abnormal findingsEssential (primary) hypertensionHyperli pidemia 6 Kenrick Leslie. [address], [place], [place], [address] , [place]. tel:[phone] Referring Provider: Zen Pollard [facility] [address], [place], [place], [address]. tel:[phone] Family History Family Member Type Diagnosis Age At Onset Father Problem (finding) of murder Father Problem (finding) Mother Problem (finding) of drug OD Sister Problem (finding) Diabetes mellitus type 2 Mother Problem (finding) Payers Payer name Insurance type Covered green party ID Authoriza tion(s) No Information Social [...] -Podiatric Medicine & Surgery Service Providers : Business Services Analyst (related to Dermatophytosis of nail) ordered Referral Ordered: Occupational Therapy (related to Type 2 diabetes mellitus without complications) ordered Referral Referred To: Occupational Therapy Ordered: Referrals: Occupational Therapy. Evaluate and treat ordered Referral Referred To: TIAGO HARRIS [address] [place], [place], [phone] Ordered: Referrals: Podiatric Medicine & Surgery Service Providers : Business Services Analyst. TIAGO HARRIS. Evaluate and treat ordered Referral [...] Disease (related to Coronary artery disease of quileute coronary artery without angina pectoris) ordered Referral Ordered: Marc Bailey -Allopathic & Osteopathic Physicians : Urology (related to Hematuria) ordered Referral Referred To: Vincenzo Grier [address] [place], [place] [id number] Ordered: Referrals: Allopathic & Osteopathic Physicians : Internal Medicine : Cardiovascular Disease. Vnicenzo Grier. Evaluate and treat ordered Referral Referred To: Marc Bailey [address] [place], [phone] Ordered: Referrals: Allopathic & Osteopathic Physicians : Urology. Marc Bailey. Evaluate and treat ordered Referral Ordered: DXA BONE DENSITY, AXIAL ordered Referral Ordered: Itz Cameron (related to Nevus, non-neoplastic) ordered Referral Referred To: Itz Cameron [address] [place], [phone] Ordered: Referrals: Itz Cameron. Evaluate and treat ordered Referral Ordered: CT THORAX W/O DYE ordered Referral Ordered: Onel Nolasco (related to Hematuria) ordered Referral Ordered: Marc Bailey (related to Hematuria) ordered Referral Referred To: Marc Bailey [address] [place], [phone] Ordered: Referrals: Marc Bailey. Evaluate and treat ordered Referral Ordered: US, PELVIC (NONOBSTETRIC); ordered Referral Referred To: Onel Nolasco [address] [facility]
[address] [place], [phone] Ordered: Referrals: Onel Nolasco. Evaluate and treat ordered Referral Ordered: CT ABDOMEN&PELVIS W/CONTRAST ordered Referral Ordered: KNEE XRAY TWO-VIEW Right ordered Referral Ordered: Hematology (related to Secondary polycythemia) ordered Referral Ordered: Referrals: Hematology. Evaluate and treat ordered Referral Ordered: Vincenzo Grier (related to Hyperlipidemia) ordered Referral Ordered: MAMMOGRAM, SCREENING ordered Referral Referred To: Vincenzo Grier [address] [facility] [address] [place], [phone] Ordered: Referrals: Vincenzo Grier. Evaluate and treat ordered History Of Present Illness Encounter Date Complaint History Of Prese nt Illness HTN Pt has been taki ng metoprolol. Pt denies any chest pain or headache her bp is ok. phos1 Pt has high phos . Pt denies any cramp, paresthesia, etc. DM Pt has DM Pt marleni es metformin and amaryl. Pt states that her glucose is around 120. Her a1c is better. Pt denies any neuropathy sleep apnea1 Pt has sleep certified alcohol drug counselor ea and pt is using cpap now. Pt doing ok. Pt feels slightly more energy. sleep apnea1 Pt has chronic f atigue and snoring Pt will do sleep study today hematuria1 Pt has hematuria . Pt denies any urinary symptoms her zoey with urology was canceled due to snow and she has zoey in August HTN Pt has CAD with stent and mild HTN. Pt sees cardiology Pt denies any chest pain Pt is out of metoprolol. Her bp is borderline high HLP Pt has HLp Pt libia luque [...] Pt libia luque. Pt denies any myalgia hematuria1 Pt has hematuria .Pt denies any urinary symptoms Pt has zoey with urology in march 08, 2021 .Pt denies any flank pain or abd pain polycythemia1 Pt has polycythe heydi. Pt saw hematology last week and was told everything ok. Pt has not heard from home sleep study yet. DM Pt has DM Pt marleni es metformin and her glucose is around 200 Pt denies any polyuria, polydipsia Pt denies any Gi symptoms. Pt denies any neuropathy physical Pt needs annual physical. Pt has [...] fatigue Pt does not snore pre pt. HLP Pt has HLP Pt ta kes pravastatin but 40 mg daily now Pt denies any myalgia HTN Pt has HTN. Pt t akes metoprolol 25 mg BID from cardiology. Pt has CAD with stent .pt still smoking. Pt denies any hemoptysis, sob or cough. lymph node1 Pt c/o painful l ymph [...] night Pt does not have any teeth PHysical Pt needs annul p hysical Pt has CAD with stent ,Pt sees cardiology, Pt is on pravastatin and metoprolol Pt denies any chest pain or sob Pt has zoey with cardiology in April. Pt has chronic hematuria Pt sees urology at [facility] ,Pt had negative CT scan and cysto, [...] new injury ,Pt denies any other complaints hematuria1 Pt denies any fl ank pain. CT ok. Pt also had negative cysto by urology per patient last month fatty liver1 Pt has fatty trish er on urology CT. Pt had cysto done also. Pt was told that she is good until next year per urology at [facility] hearing loss1 Pt has chronic h earing loss. Pt is getting hearing AID today. Pt denies any ear pain HTN Pt has HTn. Pt t akes metoprolol. Pt sees cardiology. Pt has CAD with stent. pt sees cardiology Pt denies any chest pain low D Pt has low D. Pt had bone density done which was normal hematuria1 Pt no longer has hematuria. Pt has zoey with urology next month hearing loss1 Pt has bilateral hearing loss for years Pt denies any ear pain. Pt denies any drainage. Pt notices worsening hearing lately HLp Pt has HLP Pt ta kes [...] at night Pt denies any morning fatigue PHysical Pt needs annual physical Pt just [...] removed recently. 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 Pt denies any UTI symptoms Pt never got a call from urology HLP Pt takes zocor. Pt denies any myalgia. HTN Pt takes lisinor pil and metorpolol and her BP is stable. Pt denies any chest pain or headache HLP Pt takes zocor. Pt denies any myalgia HTN Pt has HTN. Pt t akes lisinopril and metoprolol. Her BP is stable. knee pain1 Pt has right kne e pain. Pt had xray done which showed arthritis hematuria1 Pt has hematuria . Pt had CT done which showe wall thickening of right ureter and also endometricum growth. Pt told me she had partial hysterctomy due to fibroid 25 years ago. Pt denies any vaginal bleeding knee pian1 Pt c/o right kne e pain for several months. Pt denies any injury. Pt does stand on her knee a lot. Pt denies any swelling. Pt has pain daily HTN Pt takes lisinop ril and metoprolol. His BP is ok. Pt deneis any chest pain or headache polycythermia1 Pt is seeing hem atology and was told probalby due to smoking. Pt had some lab done there hematuria1 Pt has recurrent hematuria. Pt denies any UTI symptoms Pt had negative cytology HLP Pt has mildly el evated TG [...] Education Related to Dietary Surveillance and Counseling Assessments Type Assessment Date No Information
--- OUTSIDE RECORDS SUMMARY | 2024-04-22 05:25 | XMS_ITS | Clinical Summary ---
Author Organization [facility] Oration Address [address] [place] [address] Care Team Providers Care Nuclear Radiologist Name Role Phone Anuj Choudhary MD Primary Care Provider [phone] [facility] Oration,non-owned Affiliates and Associated Physician Practices is amultiple site organization consisting of ambulatory clinics and hospital sitesin [place], [place], [place] and [place]. This disclosure is being madepursuant to the Care Everywhere program and may not contain all information available regarding this patient. Last updated 17.[facility] Oration Allergies Active Allergy Reactions Criticality Noted Date [...] Take 1 tablet by mouth 01/02/2021 Active [place]-3 Fatty Acids (FISH OIL) 1000 MG capsule [...] 36.2 C (97.2 F) 03/03/2019 8:30 AM TAILER IN Respiratory Rate 11 05/15/2016 2:45 PM CDT Oxygen Saturation 98% 08/30/2021 10:02 AM CDT Inhaled Oxygen Concentration - - Weight 95.7 kg (211 lb) 02/26/2018 8:06 AM TAILER IN Height 165.1 cm (5' 5 ) 02/26/2018 8:06 AM TAILER IN Body Mass Index 35.11 02/26/2018 8:06 AM TAILER IN Plan of Treatment Health Maintenance Due Date Last Done Comments BONE DENSITY TESTING 1956 ORESTES (AGES 45-75) - COL ON CA SCREENING 1956 COLON MONITORING 1956 COLONOSCOPY - COLON CA SCREENING 1956 CT COLONOGRAPHY - COLON CA SCREENING 1956 Colorectal Cancer Screening 1956 FIT - COLON CA SCREENING 1956 FLEX SIG - COLON CA SCREENING 1956 MAMMOGRAM 1956 HEPATITIS C SCREENING 11/20/1974 DTAP/TDAP/TD VACCINES (1 - Tdap) 11/25/1975 PNEUMOCOCCAL VACCINE 50+ (1 of 2 - PCV) 11/25/1975 ZOSTER VACCINE (1 of 2) 2006 COVID-19 VACCINE (4 - 2023-2 5 season) 2023 02/12/2021, 05/22/2020, 05/01/2020 INFLUENZA VACCINE (#1) 2023 9, 12/02/2016, 10/31/2016 DEPRESSION SCREENING 03/02/2024 Respiratory Syncytial Virus (RSV) Vaccine Pt: or over 60 yrs (1 - 1-dose 75+ series) 11/25/2031 HEPATITIS B VACCINE Aged Out No longe r eligible based on patient's age to complete this topic HIB VACCINE Aged Out No longer eligi ble based on patient's age to complete this topic HPV VACCINE Aged Out No longer eligi ble based on patient's age to complete this topic MENINGOCOCCAL (Group B) VACCINE Aged Out No longer eligible b ased on patient's age to complete this topic MENINGOCOCCAL VACCINE Aged Out No дмитрий rowan eligible based on patient's age to complete this topic Advance Directives * Full Code (Latest Code Status on File) Date Activated Date Inactivated Comments 03/21/2016 6:54 PM 03/22/2016 3:04 PM Care Teams Nuclear Radiologist Relationship Specialty Start Date End Date Anuj Choudhary MD [address] [facility] [address] [place] [address] PCP - General Family Medicine 03/11/16
--- OUTSIDE RECORDS SUMMARY | 2024-04-22 05:25 | XMS_ITS | Encounter Summary ---
Author Organization [facility] Address [address] [place] [address] Care Team Providers Care Blueprint Developer Name Role Phone Wander Velasquez MD Primary Care Provider [phone] Encounter Details Date Type Department Care Team (Late st Contact Info) Description 04/20/2024 External Device Data [facility]STRACTION Provider, Abstract NO ADDRESS ON FILE Social History Tobacco Use Types Packs/Day Years Used Date Smoking Tobacco: Every Day Cigarettes 0.5 51.1 Started: 1972 Smokeless Tobacco: Never Alcohol Use Standard Drinks/Week Comments Never 0 (1 standard drink = 0.6 oz pur e alcohol) Comments Unknown Sex and Gender Information Value Date Recorded Sex Assigned at Not on file 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 Gender Identity Not on file Sexual Orientation Not on file documented as of this encounter Plan of Treatment Upcoming Encounters Date Type Department Care Team (Late st Contact Info) Description 07/08/2024 9:15 AM CDT Office Visit [facility] Oncology and Hematology - [place] [address] [facility] [address] [place] [address] Ethan Santos MD [address] [place] [address] documented as of this encounter Visit Diagnoses Not on filedocumented in this encounter Care Teams Blueprint Developer Relationship Specialty Start Date End Date Wander Velasquez MD [address] [place] [address] PCP - General Family Practice 03/04/24 documented as of this encounter
--- OUTSIDE RECORDS SUMMARY | 2024-04-22 05:25 | XMS_ITS | Clinical Summary ---
Author Organization [facility] Address [address] [place] [address] Phone Care Team Providers Care Foaming Machine Operator Name Role Phone Wander Joiner DO Unavailable Guilherme Felix MD Primary Care Provider Anuj Choudhray Unavailable Allergies Active Allergy Reactions Criticality Noted Date Comments Iron Rash 01/15/2016 Medications metFORMIN (GLUCOPHAGE) 500 MG Tablet Take 1 Tablet by mouth. 1 Active [place]-3 Fatty Acids (fish oil) 1200 MG Capsule 1 Active rosuvastatin (CRESTOR) 20 MG Tablet Take 1 Tablet by mouth. 1 Active glimepiride (AMARYL) 1 MG Tablet TAKE 1 TABLET BY MOUTH ONCE DAILY 2 Active metoprolol tartrate (LOPRESSOR) 25 MG Tablet Take 25 mg by mouth 2 times daily. 2 Active albuterol 108 (90 Base) MCG/ACT Aerosol Solution INHALE 1 TO 2 PUFFS BY MOUTH EVERY 4 HOURS NEEDED FOR SHORTNESS OF BREATH OR WHEEZING 2 Active aspirin 325 MG Tablet Take 325 mg by mouth. Active Cholecalciferol (Vitamin D3) 1.25 MG (08873 UT) Capsule TAKE 1 CAPSULE BY MOUTH ONCE A WEEK 2 Active lisinopril (PRINIVIL, ZESTRIL) 2.5 MG Tablet Take 2.5 mg by mouth daily. 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 Immunizations Immunization Administration Dates Next Due Influenza Vaccine, Quadrivalent, PF 12/02/2016 Influenza Vaccine,unspecified Formulation 2018 Family History Medical History Relation Name Comments Other-comment Daughter myasthenia gra vis Heart Attack Father Lung Cancer Maternal Grandfather Lung Cancer Maternal Uncle Diabetes Other 1 Cancer Other 2 neice- glioblas key Lung Cancer Other 3 maternal cousin Breast Cancer Other 4 maternal cousi n Breast Cancer Paternal Aunt Cancer Paternal Uncle 1 Other-comment Paternal Uncle 2 myastenia gravis Relation Name Status Comments Daughter Father Maternal Grandfather Maternal Uncle Other 1 Other 2 Other 3 Other 4 Paternal Aunt Paternal Uncle 1 Paternal Uncle 2 Social History Tobacco Use Types Packs/Day Years Used Date Smoking Tobacco: Every Day Cigarettes Cigars Smokeless Tobacco: Never Tobacco Cessation:Ready to Q uit: No; Counseling Given: Yes Comments:since age 16 Alcohol Use Standard Drinks/Week Comments Not Currently 0 (1 standard drink = 0.6 oz pur e alcohol) PHQ-2 Answer Date Recorded Total Score - Questions 1-9 0 07/01 Comments Unknown Sex and Gender Information Value Date Recorded Sex Assigned at Not on file Legal Sex Female 11:37 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[employer] Gender Identity Not on file Sexual Orientation Not on file Last Filed Vital Signs Vital Sign Reading Time Taken Comments Blood Pressure 126/74 08/07/2023 9:13 AM CDT Pulse 73 08/07/2023 9:13 AM CDT Temperature 36.6 C (97.8 F) 08/07/2023 9:13 AM CDT Respiratory Rate 18 08/07/2023 9:13 AM CDT Oxygen Saturation 96% 08/07/2023 9:13 AM CDT Inhaled Oxygen Concentration - - Weight 81.7 kg (180 lb 3.2 oz) 08/07/2023 9:13 A M CDT Height 166.4 cm (5' 5.5 ) 08/07/2023 9:13 AM CDT Body Mass Index 29.53 08/07/2023 9:13 AM CDT Plan of Treatment Upcoming Encounters Date Type Department Care Team (Late st Contact Info) Description 08/05/2024 9:00 AM CDT Lab [facility] [address] [id number] Lab, [facility] 08/05/2024 9:15 AM CDT Office Visit [facility] [address] [phone] Wander Joiner, [address] [place] [phone] Health Maintenance Due Date Last Done Comments DEXA Bone Density 1955 Hepatitis C Virus (HCV) Screening 1955 TdaP Immunization 1955 Colonoscopy 2001 Colorectal Cancer Screening 2001 Cologuard 2006 Immunochemical Fecal Occult Blood 2006 Mammogram 2006 Influenza Immunization (#1) 2023 090 08/2022, 12/09/2021, 11/29/2018, Additional history exists SARS-COV-2 Immunization ( season) 2023 11/25/2022, 12/09/2021, 02/12/2021, Additional history exists Pneumococcal Immunization (50+ years) Completed 11/06/2022 Pneumococcal Immunization Combined Discontinued 11/06/2022 Respiratory Syncytial Virus (RSV) Immunization (Adult) Completed 11/06/2022 Zoster Immunization Completed 04/03/2023, Hepatitis B Immunization Aged Out No longer eligible based on patient's age to complete this topic Meningococcal Immunization (ACWY) Aged Out No longer eligible based on patient's age to complete this topic Rotavirus Immunization Aged Out No lo nger eligible based on patient's age to complete this topic Insurance [facility] Care Teams Foaming Machine Operator Relationship Specialty Start Date End Date Guilherme Felix MD [address] [place] [phone] PCP - General Family Medicine 08/12/22 Wander Joiner DO [address] [place] [phone] Consulting Physician Oncology 08/08/22 Anuj Choudhary [address] [facility] [place] [address] Family Medicine 08/12/22
--- OUTSIDE RECORDS SUMMARY | 2024-04-22 05:25 | XMS_ITS | Continuity of Care Document ---
Author Organization [facility] Address [address] [place] [address] [address] [place] [address] Phone Care Team Providers Care Classifying Machine Operator Name Role Phone Brown OD, Agapito Unavailable Unavailable Procedures Procedure Date Office/outpatient Visit, Est Office/outpatient Visit, Est Advance Directives Directive Yes / No Effective Date File Name No Information Encounters Encounter Description Practice Location Reason(s) For Visit Diagnoses Date Provider Providers Copied on Encounter Office/[place]pat ient Visit, [facility] [place] [address] [place] [address] [address], [place], [place], [id number], tel:[phone] [facility] No Information 3-200 7 Brown OD Agapito. [address] , [address], [place], [place], [facility], . tel:[phone] Office/outpat ient Visit, [facility] [place], [address] [place] [address] [address], [place], [place], [id number], tel:[phone] [facility] No Information 6-200 7 Brown OD Agapito. [address] , [address], [place], [address], [place]. tel:[phone] Referring Provider: Low Bui MD , [address] [facility] [address], [place], [address]. tel:[phone] Family History Family Member Type Diagnosis Age [...]
--- OUTSIDE RECORDS SUMMARY | 2024-04-22 05:25 | XMS_ITS | Patient Health Summary ---
Author Organization [facility] Address [address] [place] [address] Care Team Providers Care Manager Inspection Name Role Phone Anuj Choudhary MD Primary Care Provider [phone] Note from [facility],non-owned Affiliates and Associated Physician Practices is amultiple site organization consisting of ambulatory clinics and hospital sitesin [place], [place], [place] and [place]. This disclosure is being madepursuant to the Care Everywhere program and may not contain all information available regarding this patient. Last updated 17.[facility] Allergies * Iron(Rash) -Medium Criticality Medications * Be aware that medications may not be up to date on this document. Alwaysverify current medications with the patient. * metoprolol tartrate (LOPRESSOR) 25 MG tablet(Started 02/20/2016) take 1 tablet by oral route 2 times every day * glimepiride (AMARYL) 1 MG tablet(Started 04/30/2021) Take 1 tablet by mouth once daily * Blood Glucose Monitoring Suppl (ONE TOUCH ULTRA 2) w/Device KIT(Started 01/02/2021) USE 1 TO CHECK GLUCOSE ONCE DAILY * ONETOUCH ULTRA test strip(Started 01/02/2021) USE 1 STRIP TO CHECK GLUCOSE ONCE DAILY * Lancets (ONETOUCH DELICA PLUS 33G EXTRA FINE LANCET)(Started 08/01/2021) USE 1 TO CHECK GLUCOSE TWICE DAILY NEEDED * lisinopril (PRINIVIL; ZESTRIL) 2.5 MG tablet(Started 08/01/2021) Take 2.5 mg by mouth once daily * metFORMIN (GLUCOPHAGE) 500 MG tablet(Started 01/02/2021) Take 1 tablet by mouth * rosuvastatin (CRESTOR) 20 MG tablet(Started 01/02/2021) Take 1 tablet by mouth * [place]-3 Fatty Acids (FISH OIL) 1000 MG capsule * APPLE CIDER VINEGAR PO Take 450 mg by mouth * aspirin EC (ECOTRIN) 325 MG tablet Take 325 mg by mouth once daily * acetaminophen (TYLENOL) 500 MG tablet Take 500 mg by mouth every 4 hours as needed for Fever or Pain Maximum allowable Acetaminophen amount = 4 Grams (4000 mg) / 24 hours. * sulfamethoxazole-trimethoprim (BACTRIM DS; SEPTRA DS) 800-160 MG tablet (Started 08/30/2021) Take 1 (one) tablet by mouth 2 times daily Immunizations * INFLUENZA VACCINE(Given 11/29/2018) Social History Tobacco Use Types Packs/Day Years [...] 36.2 C (97.2 F) 03/03/2019 8:30 AM CARRIAGE OPERATOR Respiratory Rate 11 05/15/2016 2:45 PM CDT Oxygen Saturation 98% 08/30/2021 10:02 AM CDT Inhaled Oxygen Concentration - - Weight 95.7 kg (211 lb) 02/26/2018 8:06 AM CARRIAGE OPERATOR Height 165.1 cm (5' 5 ) 02/26/2018 8:06 AM CARRIAGE OPERATOR Body Mass Index 35.11 02/26/2018 8:06 AM CARRIAGE OPERATOR Procedures * CULTURE URINE(Performed 08/31/2021) * URINALYSIS AUTO - POINT OF CARE (AMB) [facility](Performed 08/30/2021) Performed for Hematuria, unspecified type * LAB RESULTS ORDER(Performed 03/28/2019) * LAB RESULTS ORDER(Performed 03/28/2019) * CULTURE URINE(Performed 03/04/2019) * URINALYSIS AUTO - POINT OF CARE (AMB) [facility](Performed 03/03/2019) Performed for Hematuria, unspecified type * URINALYSIS AUTO - POINT OF CARE (AMB) [facility](Performed 02/26/2018) Performed for Microhematuria * TX CYSTOURETHROSCOPY(Performed 02/26/2018) Performed for Microhematuria * CULTURE URINE(Performed 01/27/2018) Performed for Hematuria, unspecified type * URINALYSIS AUTO - POINT OF CARE (AMB) [facility](Performed 01/26/2018) Performed for Hematuria, unspecified type * LAB MISC TEST (NOT BLOOD)(Performed 01/07/2018) Performed for Pelvic mass in female * URINALYSIS AUTO - POINT OF CARE (AMB) [facility](Performed 01/07/2018) Performed for Hematuria, unspecified type * URINALYSIS AUTO - POINT OF CARE (AMB) [facility](Performed 09/17/2016) * CULTURE URINE(Performed 09/16/2016) * CT UROGRAM(Performed 09/10/2016) * CREATININE BLOOD - POCT (IP) [facility](Performed 09/10/2016) * URINALYSIS AUTO - POINT OF CARE (AMB) [facility](Performed 06/04/2016) * CYTOLOGY NON-SUPERVISOR YARD PANEL (STL)(Performed 05/15/2016) * FL CYSTOGRAM(Performed 05/15/2016) * BASIC METABOLIC PANEL (CALCIUM TOTAL)(Performed 05/15/2016) * EKG 12-LEAD(Performed 05/15/2016) * PATHOLOGY/GENETICS HISTORICAL-ONBASE(Performed 05/15/2016) * URINALYSIS REFLEX TO MICROSCOPIC NO CULTURE(Performed 04/29/2016) * CULTURE URINE(Performed 04/29/2016) * CYTOLOGY NON-SUPERVISOR YARD PANEL (STL)(Performed 04/29/2016) * CYTOLOGY NON-SUPERVISOR YARD PANEL (STL)(Performed 04/29/2016) * URINALYSIS AUTO - POINT OF CARE (AMB) [facility](Performed 04/29/2016) * CARDIAC RHYTHM STRIP ORDER(Performed 03/24/2016) * PATHOLOGY TISSUE EXAM (STL)(Performed 03/21/2016) Performed for Pelvic mass * TYPE + SCREEN PANEL(Performed 03/21/2016) * ENDOTRACHEAL TUBE NOTE(Performed 03/21/2016) * LYSIS ADHESIONS(Performed 03/21/2016) Performed for Pelvic mass * LAPAROTOMY EXPLORATORY(Performed 03/21/2016) Performed for Pelvic mass * ROBOTIC ASSISTED SALPINGECTOMY AND/OR OOPHORECTOMY(Performed 03/21/2016) Performed for Pelvic mass * BLOOD TYPE VERIFICATION(Performed 03/21/2016) * PATHOLOGY/GENETICS HISTORICAL-ONBASE(Performed 03/21/2016) * URINE MICROSCOPIC ONLY(Performed 03/11/2016) Performed for Pelvic mass in female * URINALYSIS REFLEX TO MICROSCOPIC NO CULTURE(Performed 03/11/2016) Performed for Pelvic mass in female * XR CHEST 2VW(Performed 03/11/2016) Performed for Preop examination * CANCER ANTIGEN (CA)125 BLOOD(Performed 03/11/2016) Performed for Pelvic mass in female * COMPREHENSIVE METABOLIC PANEL(Performed 03/11/2016) Performed for Pelvic mass in female * CBC W AUTO DIFFERENTIAL(Performed 03/11/2016) Performed for Pelvic mass in female * LAB HISTORICAL RESULTS-ONBASE(Performed 03/11/2016) * LAB HISTORICAL RESULTS-ONBASE(Performed 03/11/2016) Results * CULTURE URINE (08/31/2021 7:00 PM CDT) Only the most recent of5 resultswithin the time period is included. Culture [facility] Comment: CULTURE, URINE, ROUTINE Micro Number: [id number] Test Status: Final Specimen Source: Urine Specimen Quality: Adequate Result: No Growth NO COLLECTION DATE RECEIVED. WE HAVE USED THE DATE THE SPECIMEN WAS RECEIVED BY THIS LABORATORY THE COLLECTION DATE. IF THIS IS INCORRECT, PLEASE CONTACT CLIENT SERVICES. PHONE NUMBER: [phone] Test Performed at: [facility] [id number] SRIKANTH FREEMAN MD 08/31/2021 2:3 0 AM CDT Marc Bailey MD LAB - MICROBIOLOGY ORDERABLES [email or web address] [address] [place] [id number] * URINALYSIS AUTO - POINT OF CARE (AMB) [facility] (08/30/2021) Only the most recent of8 resultswithin the time period is included. Glucose UA neg Bilirubin UA POCT 17 umol/l Ketones UA POCT 0.5 mmol/l Specific Glenvil UA 1.020 Blood Urine POCT 25 aishwarya/ul pH UA 6.0 Protein UA 0.3 g/l Urobilinogen UA 3.5 umol/l Nitrite UA neg WBC UA 500 ar/ul Urine URINE / Unknown 08/30/2021 Marc Bailey MD LAB - POINT OF CARE ORDERABLES * LAB RESULTS ORDER (03/28/2019 12:29 PM CARRIAGE OPERATOR) Only the most recent of2 resultswithin the time period is included. Narrative 03/28/2019 12:29 PM CARRIAGE OPERATOR Ordered by an unspecified provider. Scanned Document LAB - THERAPEUTIC DR MARCELLUS MONITORING ORDERABLES * TX CYSTOURETHROSCOPY (02/26/2018 9:09 AM CARRIAGE OPERATOR) Narrative Sheryl Muñiz APRN-CNP - 02/26/2018 9:09 AM CARRIAGE OPERATOR Sheryl Muñiz APRN-CNP 02/26/2018 9:09 AM Cystoscopy procedure note Indication for Procedure: persistent microhematuria Description: Pt placed on the procedure table in the supine/lithotomy position. she was prepped/draped in standard fashion. Pt correctly identified and time out performed. A flexible cystoscope was introduced per urethra withthe following findings. Urethra: Normal caliber, no stricture. No masses. Urethral sphincter with good coaptation Trigone - UO's orthotopic bilaterally. Clear efflux seen from both ureteral orifices. Mucosa normal without lesion Bladder - normal mucosa without tumor/stone/erythema. No FB present. No trabeculation. No cellules or diverticula. No fistula. Scope was retroflexed to assess entire surface of bladder. IMPRESSION: Benign microheamturia PLAN: follow up one year with UA and urine cytology. Consulted with Dr. Winters and he agrees with the plan. PRIMO Ervin Sheryl Muñiz APRN-ISAI PROCEDURE/MIN OR SURGICAL ORDERABLES * LAB MISC TEST (NOT BLOOD) (01/07/2018 3:19 PM CARRIAGE OPERATOR) Test Name Igor FISH Bladder Cancer 01/25/2018 10:02 AM [facility] Test Result See Scanned Report 01/25/2018 10:02 AM CARRIAGE OPERATOR [facility] NON INTERF Comment Ref Lab 01/25/2018 10:02 AM CARRIAGE OPERATOR [facility]F Other URINE / Unknown Collection / Unknown 01/07/2018 3:19 PM CARRIAGE OPERATOR 01/08/2018 8:51 AM CARRIAGE OPERATOR Onel Nolasco MD LAB - BODY FLUID OR DERABLES [facility]F [address] [place] [address] [facility] [address] [place] [address] * CT UROGRAM (09/10/2016 8:56 AM CDT) Anatomical Region Laterality Modality Abdomen, Pelvis Other Impressions 09/11/2016 2:55 PM CDT IMPRESSION: 1. Normal CT urogram. Dictated by Andrea Coates MD (vice president of consulting services). I, Dr. NORIS TONEY M.D. have personally reviewed and interpreted this examination/study. This report was electronically signed by NORIS TONEY M.D. on 09/11/2016 2:55 PM . Narrative 09/11/2016 2:55 PM CDT EXAMINATION: Computed tomography (CT) urography of the abdomen and pelvis without and with contrast HISTORY: Right ureteral thickening TECHNIQUE: CT urography of the abdomen and pelvis was performed prior to and following the uneventful administration of 100 mL of Omnipaque 350 intravenous contrast according to a urography protocol. COMPARISON: Images from cystogram performed 05/15/2016 were reviewed. FINDINGS: The aorta is atherosclerotic but normal in caliber. The visible lung bases are clear. The heart size is normal without pericardial effusion. The liver is diffusely hypoattenuating consistent with diffuse hepatic steatosis. Otherwise the liver enhances homogenously. The gallbladder is normal without evidence of wall thickening, pericholecystic fluid, or gallstones. The intrahepatic and extrahepatic bile ducts are nondilated. The spleen enhances homogenously without focal lesion. The pancreas and right adrenal gland are normal. There is mild thickening of the left adrenal gland while maintaining its adreniform shape. The kidneys enhance symmetrically. No renal mass is identified. The distal ureters are nonopacified, likely secondary to ureteral peristalsis. The ureters are otherwise normal in caliber without filling defects or focal mucosal thickening/enhancement. No renal or ureteral calculus is seen. There is no evidence of hydronephrosis or hydroureter. The urinary bladder is distended with fluid and appears normal. No bladder calculus is identified. No filling defect is seen within the bladder. The uterus is absent. No free fluid is seen within the pelvis. There is no pelvic lymphadenopathy. A 1.2 cm calcification is noted near the vaginal cuff. The distal esophagus and stomach appear normal. The small bowel and large bowel are normal in caliber without evidence of wall thickening or obstruction. The appendix is not seen; however, no inflammatory changes are seen in the right lower quadrant. No free air or free fluid is identified within the abdomen. There is no abdominal lymphadenopathy. Bone windows demonstrate no suspicious lytic or blastic lesions. The visible osseous structures are intact. Mild multilevel degenerative changes are noted in the spine. Procedure Note Heaven Toney MD - 05/29/2017 EXAMINATION: Computed tomography (CT) urography of the abdomen and pelviswithout and with contrast HISTORY: Right ureteral thickening TECHNIQUE: CT urography of the abdomen and pelvis was performed prior toand following the uneventful administration of 100 mL of Omnipaque 350intravenous contrast according to a urography protocol. COMPARISON: Images from cystogram performed 05/15/2016 were reviewed. FINDINGS: The aorta is atherosclerotic but normal in caliber. The visible lung bases are clear. The heart size is normal withoutpericardial effusion. The liver is diffusely hypoattenuating consistent with diffuse hepaticsteatosis. Otherwise the liver enhances homogenously. The gallbladder isnormal without evidence of wall thickening, pericholecystic fluid, orgallstones. The intrahepatic and extrahepatic bile ducts are nondilated. The spleen enhances homogenouslywithout focal lesion. The pancreas and right adrenal gland are normal.There is mild thickening of the left adrenal gland while maintaining itsadreniform shape. The kidneys enhance symmetrically. No renal mass is identified. The distalureters are nonopacified, likely secondary to ureteral peristalsis. Theureters are otherwise normal in caliber without filling defects or focalmucosal thickening/enhancement. No renal or ureteral calculus is seen. There is no evidence ofhydronephrosis or hydroureter. The urinary bladder is distended with fluidand appears normal. No bladder calculus is identified. No filling defectis seen within the bladder. The uterus is absent. No free fluid is seen within the pelvis. There is nopelvic lymphadenopathy. A 1.2 cm calcification is noted near the vaginalcuff. The distal esophagus and stomach appear normal. The small bowel and largebowel are normal in caliber without evidence of wall thickening orobstruction. The appendix is not seen; however, no inflammatory changesare seen in the right lower quadrant. No free air or free fluid is identified within the abdomen. There is noabdominal lymphadenopathy. Bone windows demonstrate no suspicious lytic or blastic lesions. Thevisible osseous structures are intact. Mild multilevel degenerativechanges are noted in the spine. IMPRESSION IMPRESSION: 1. Normal CT urogram. Dictated by Andrea Coates MD (vice president of consulting services). I, Dr. NORIS TONEY M.D. have personally reviewed and interpreted thisexamination/study. This report was electronically signed by NORIS TONEY M.D. on09/11/2016 2:55 PM . Marc Bailey MD CT ORDERABLES * CREATININE BLOOD - POCT (IP) [facility] (09/10/2016) Creatinine POCT 0.86 0.3 - 1.3 mg/dL [facility] eGFR POCT 60 60 ml/min [facility] 09/10/2016 Marc Bailey MD LAB - POINT OF CARE ORDERABLES [facility] * CYTOLOGY NON-SUPERVISOR YARD PANEL (STL) (05/15/2016 1:50 PM CDT) Only the most recent of3 resultswithin the time period is included. Cytology Non-Edging Machine Feeder Accession No: [id number] Reference: Specimen: A. VOIDED, URINE B. LEFT URETERAL, URINE C. RIGHT URETERAL, URINE Clinical History: MICROSCOPIC HEMATURIA AND MID URETERAL THICKENING Gross Description: SP-A: 40 ML URINE; SP-B: 10 ML OF FLUID; SP-C: 10 MLS OF FLUID Preparation Method: SP-A: 1 PAP STAINED THIN PREP SLIDE; SP-B: 1 PAP STAINED THIN PREP SLIDE; SP-C: 1 PAP STAINED THING PREP SLIDE SPECIMEN ADEQUACY: Adequate FINAL DIAGNOSIS: URINE, VOIDED, CYTOLOGY (A): - ATYPICAL UROTHEIAL CELLS, SEE COMMENT URETER, LEFT, URINE, CYTOLOGY (B): - ATYPICAL UROTHELIAL CELLS URETER, RIGHT, URINE, CYTOLOGY (C): - ATYPICAL UROTHELIAL CELLS. MICROSCOPIC DESCRIPTION: Some groups of large urothelial cells are seen in clusters. These cellular clustsers are found in all three specimens. The cellular clusters contain cells with large nuclei having a open nuclear pattern. Some nucleoli are seen. Cells have abundant cytoplasm (a findings suggesting a benign reactive process), and each cluster shows benign rimming with cytoloplasm material. ES/mn COMMENT(S): Given the history of kidney stones and uretheral thinckening, a benign reactive process is favored. Urovysion studies for FISH would be helpful in this situation. This case has been personally reviewed and interpreted by the attending (teaching) pathologist. Final Diagnosis performed by Marco Shelley MD. Electronically signed 05/20/2016 [facility] ([facility]) Other (qualifier value) 05/15/2016 1:50 PM CDT 05/15/2016 3:19 PM CDT Narrative [facility] - 05/27/2016 2:51 PM CDT Diagnosis->microscopic hematuria and mid ureteral thickening Collection Date->05/15/16 Collection Time-> 1:20 PM Specimen A->Urine Urine from bladder, cytology Specimen B->Ureter, Left Left ureteral, cytology Specimen C->Ureter, Right Right ureteral cytology Walt Winters MD LAB - PATHOLOGY/CY TOLOGY ORDERABLES [facility] ([facility]) * FL CYSTOGRAM (05/15/2016 1:30 PM CDT) Anatomical Region Laterality Modality Abdomen, Pelvis Other Narrative 05/19/2016 3:44 PM CDT Fluoroscopy was used for this exam. Please see the Operative report. Procedure Note Provider, MD Danilo - 05/29/2017 Fluoroscopy was used for this exam. Please see the Operative report. Walt Winters MD FLUOROSCOPY ORDERA BLES * (ABNORMAL) BASIC METABOLIC PANEL (CALCIUM TOTAL) (05/15/2016 12:05 PM CDT) BUN 14 7 - 26 mg/dL [facility] Creatinine 0.8 0.6 - 1.2 mg/dL [facility] Sodium 140 136 - 145 mmol/L [facility] Potassium 4.1 3.5 - 4.5 mmol/L [facility] Chloride 110(H) 98 - 107 mmol/L [facility] CO2 22 22 - 29 mmol/L [facility] Glucose 99 70 - 115 mg/dL [facility] Calcium 8.6 8.4 - 10.2 mg/dL [facility] Anion Gap 12 8 - 18 [facility] BUN/Creatinine Ratio 18 7 - 23 [facility] Osmolality Calculated 291 270 - 300 mOsm/kg [facility] eGFR >60 >60 mL/min/1.7 3 m2 [facility] Blood specimen (specimen) BLOOD SPECIMEN / Unknown 05/15/2016 12:05 PM CDT 05/15/2016 12:09 PM CDT Curly Rodriguez MD LAB - CHEMISTRY [facility] SM[facility] [address] [phone] * PATHOLOGY/GENETICS HISTORICAL-ONBASE (05/15/2016) Only the most recent of2 resultswithin the time period is included. 05/15/2016 Historical Provider LAB - CHEMISTRY O RDERABLES Performing Organization Address City/[facility]/ZIP Co de Phone Number [facility] [address] [place] [address], [facility] * EKG 12-LEAD (05/15/2016 12:00 AM CDT) EKG [facility] Comment: Exam Date/Time: May 15 2016 10:24:40 Test Reason : recent stemi, no baseline Blood Pressure : / mmHG Vent. Rate : 063 BPM Atrial Rate : 063 BPM P-R Int : 220 ms QRS Dur : 088 ms QT Int : 398 ms P-R-T Axes : 049 082 066 degrees QTc Int : 407 ms Sinus rhythm with 1st degree A-V block Otherwise normal ECG No previous ECGs available Confirmed by Priti CHAO, VERONICA ([id number]), web content editor Jose A Vidales ([id number]) on 05/26/2016 12:41:52 PM Referred By: REFERRING SYSTEM Confirmed By:VERONICA CHAO M.D. 05/15/2016 Curly Rodriguez MD ECG ORDERABLES Performing Organization Address [facility] Co de Phone Number [facility] * (ABNORMAL) URINALYSIS REFLEX TO MICROSCOPIC NO CULTURE (04/29/2016 1:11 PM CARRIAGE OPERATOR) Only the most recent of2 resultswithin the time period is included. Color UA Yellow Straw, Yellow, Colorless, Light Yellow [facility] Clarity UA Clear Clear [facility] Specific Glenvil UA 1.004 1.001 - 1.030 [facility] pH UA 7.0 5.0 - 8.0 [facility] Protein UA Negative <=20 mg/dL [facility] Glucose UA Negative Negative mg/dL [facility] Ketone UA Negative Negative mg/dL [facility] Bilirubin UA Negative Negative mg/dL [facility] Blood UA Trace(A) Negative [facility] Nitrite UA Negative Negative [facility] Leukocyte Esterase Large(A) Negative [facility] Urobilinogen UA <2.0 <2.0 mg/dL [facility] RBC UA 5 0 - 8 /HPF [facility] WBC UA 3(H) 0 - 2 /HPF [facility] Bacteria UA Rare Rare, Occasional, None /HPF [facility] Squamous Epithelial Cells UA 2(H) 0 - 1 /HPF [facility] Urine specimen (specimen) 04/29/2016 1:11 PM CARRIAGE OPERATOR 04/29/2016 1:11 PM CARRIAGE OPERATOR Walt Winters MD LAB - URINALYSIS O RDERABLES [facility] [address] [place] [address] * CARDIAC RHYTHM STRIP ORDER (03/24/2016 8:08 PM CARRIAGE OPERATOR) Narrative 03/24/2016 8:08 PM CARRIAGE OPERATOR Ordered by an unspecified provider. Scanned Document CARDIAC SERVICES ORD ERABLES * GROSS + MICRO EXAM (STL) (03/21/2016 4:38 PM CARRIAGE OPERATOR) Case Report Surgical Pathology Report Case: [id number] Authorizing Provider: Onel Nolasco MD Collected: 03/21/2016 04:38 PM Ordering Location: [facility] Received: 03/21/2016 04:44 PM Pathologist: Nickie Brooks MD Specimen: Ovary with Tube, left ovary 03/24/2016 1:23 PM CARRIAGE OPERATOR [facility] Final Diagnosis 1. Left ovary, resection: -- Ovarian fibroma MC/na 03/24/2016 1:23 PM CARRIAGE OPERATOR [facility] Frozen Section FSA1: left ovary 03/24/2016 1:23 PM CARRIAGE OPERATOR [facility] Gross Description The specimen is received fresh in one container for frozen section diagnosis and intraoperative consult labeled with the patient's name, Liseth Jones, and ovary and is an ovary weighing 224 grams and measuring 8.4 x 7.3 x 7.3 cm. The serosal surface is [id number], smooth without papillary projections. The ovary is serially sectioned revealing homogeneous white-pink cut surface with focal areas of cystic dilatation. A guest relations representative section is submitted as FSA1. Sections are submitted as follows: A1: Frozen section remnant A2-A7: Further guest relations representative sections of the ovary PW/algloria 03/24/2016 1:23 PM [facility] Microscopic Description Sections reveal an ovary with a fibroma composed of spindled cells with areas of degeneration and edema. However alternating hypocellular and hypercellular areas and prominent vascularity are not identified. Therefore this is a fibroma not a sclerosing stromal tumor. No evidence of malignancy is identified. MC/na 03/24/2016 1:23 PM [facility] Disclaimer All histochemical and/or immunohistochemical results are interpreted with controls that demonstrate appropriate staining reactions before reporting results. Note on use of immunocytochemistry reagents: This test was developed and its performance characteristic determined by [facility], Department of Laboratory Medicine. It has not been cleared or approved by the U.S. Food and Drug Administration (FDA). The FDA has determined that such clearance or approval is not necessary. The test is used for clinical purpose. It should not be regarded as investigational or for research. This laboratory is certified to perform high complexity testing. 03/24/2016 1:23 PM [facility] Embedded Images 03/24/2016 1:23 PM [facility] Pathology/Cytolo gy FALLOPIAN TUBE AND OVARY, CS / Unknown 03/21/2016 4:38 PM CARRIAGE OPERATOR 03/21/2016 4:44 PM CARRIAGE OPERATOR Onel Nolasco MD LAB - PATHOLOGY/CYT OLOGY ORDERABLES Performing Organization Address City/[facility]/ZIP Co de Phone Number [facility] [address] [place] [address] * TYPE + SCREEN PANEL (03/21/2016 3:03 PM CARRIAGE OPERATOR) ABO O 03/21/2016 3:37 PM [facility] Rh Type Positive 03/21/2016 3:37 PM [facility] Comment:History check perfor med. No retype required. Antibody Screen Negative 03/21/2016 3:37 PM [facility] Blood Bank BLOOD SPECIMEN / Unknown 03/21/2016 3:03 PM CARRIAGE OPERATOR 03/21/2016 3:03 PM CARRIAGE OPERATOR Helena Rubi MD LAB - BLOOD BANK ORD ERABLES [facility] [address] [place] [address] * BLOOD TYPE VERIFICATION (03/21/2016 10:56 AM CARRIAGE OPERATOR) ABO O 03/21/2016 11:57 AM CARRIAGE OPERATOR [facility] BANK LAB Rh Type Positive 03/21/2016 11:57 AM CARRIAGE OPERATOR [facility] BLOOD [facility] Blood Bank BLOOD SPECIMEN / Unknown 03/21/2016 10:56 AM CARRIAGE OPERATOR 03/21/2016 10:56 AM CARRIAGE OPERATOR Onel Nolasco MD LAB - BLOOD BANK OR DERABLES Performing Organization Address [facility] Co de Phone Number [facility] [address] [place] [address] * (ABNORMAL) URINALYSIS MICROSCOPIC ONLY (03/11/2016 4:07 PM CARRIAGE OPERATOR) Epithelial Cell UA 5-10(A) 0-2, 2-5 # /hpf 03/11/2016 5:16 PM CARRIAGE OPERATOR [facility] Hyaline Casts 0-2 0 - 2 # /lpf 03/11/2016 5:16 PM CARRIAGE OPERATOR [facility] Urine URINE SPECIMEN OBTAINED BY CLEAN CATCH PROCEDURE / Unknown Collection / Unknown 03/11/2016 4:07 PM CARRIAGE OPERATOR 03/11/2016 4:07 PM CARRIAGE OPERATOR Onel Nolasco MD LAB - URINALYSIS OR DERABLES Performing Organization Address [facility] Co de Phone Number [facility] [address] [place] [address] * XR CHEST PA AND LATERAL (03/11/2016 3:39 PM CARRIAGE OPERATOR) Anatomical Region Laterality Modality Chest Radiographic Karina ging 03/11/2016 3:51 PM CARRIAGE OPERATOR Narrative 03/11/2016 3:52 PM CARRIAGE OPERATOR Exam: PA and lateral views of the chest. History: Encounter for other preprocedural examination Findings/Impression: No prior exams are available for comparison. No focal consolidation, pleural effusion, or pneumothorax is identified. The cardiac silhouette and mediastinal contours are normal. Procedure Note Ra Street MD - 03/11/2016 Exam: PA and lateral views of the chest. History: Encounter for other preprocedural examination Findings/Impression: No prior exams are available for comparison. No focal consolidation, pleural effusion, or pneumothorax is identified. The cardiac silhouette and mediastinal contours are normal. Onel Nolasco MD DIAGNOSTIC IMAGING ORDERABLES * CA 125 BLOOD (03/11/2016 3:08 PM CARRIAGE OPERATOR) Pathologist [facility] [place] 125 27.1 0.0 - 38.1 U/mL 03/13/2016 5:12 AM CARRIAGE OPERATOR [facility] ([facility]) Comment:Marty ECLIA methodol ogy Blood BLOOD SPECIMEN / Unknown Lab Venipuncture / Unknown 03/11/2016 3:08 PM CARRIAGE OPERATOR 03/11/2016 3:08 PM CARRIAGE OPERATOR Narrative [facility] ([facility]) - 03/13/2016 5:12 AM CARRIAGE OPERATOR Performed at: [facility] [id number] [place]: Javier Tucker PhD, Phone: [phone] Onel Nolasco MD LAB - CHEMISTRY ORD ERABLES [facility] ([facility]) [address] [place] [address] * (ABNORMAL) CBC W AUTO DIFFERENTIAL (03/11/2016 3:08 PM CARRIAGE OPERATOR) Pathologist [facility] WBC 7.2 4.4 - 10.7 x10E9/L 03/11/2016 3:30 PM CARRIAGE OPERATOR [facility] WBC Corrected x10E9/L 03/11/2016 3:30 PM CARRIAGE OPERATOR [facility] RBC 4.68 3.80 - 5.20 x10E12/L 03/11/2016 3:30 PM [facility] Hemoglobin 16.3(H) 12.0 - 15.6 gm/dL 03/11/2016 3:30 PM [facility] Hematocrit 46.2(H) 35.9 - 45.5 % 03/11/2016 3:30 PM [facility] MCV 98.7(H) 80.7 - 98.3 fl 03/11/2016 3:30 PM [facility] MCH 34.8(H) 26.7 - 34.0 pg 03/11/2016 3:30 PM [facility] MCHC 35.3 30.8 - 35.9 gm/dL 03/11/2016 3:30 PM [facility] Platelet Count 268 153 - 416 x10E9/L 03/11/2016 3:30 PM [facility] RDW-CV 13.7 12.1 - 14.9 % 03/11/2016 3:30 PM [facility] MPV 9.6 9.4 - 12.9 fl 03/11/2016 3:30 PM [facility] Neutrophils % 56.8 44.0 - 73.0 % 03/11/2016 3:30 PM [facility] Lymphocytes % 33.6 20.0 - 43.0 % 03/11/2016 3:30 PM [facility] Monocytes % 7.6 5.0 - 13.0 % 03/11/2016 3:30 PM [facility] Eosinophils % 1.0 0.0 - 6.0 % 03/11/2016 3:30 PM [facility] Basophils % 0.7 0.0 - 2.0 % 03/11/2016 3:30 PM [facility] Immature Granulocytes 0.3 0 - 1 % 03/11/2016 3:30 PM [facility] Neutrophil Absolute 4.12 2.01 - 7.14 x10E9/L 03/11/2016 3:30 PM [facility] Lymphocytes Absolute 2.43 1.07 - 3.94 x10E9/L 03/11/2016 3:30 PM [facility] Monocytes Absolute 0.55 0.26 - 1.07 x10E9/L 03/11/2016 3:30 PM [facility] Eosinophils Absolute 0.07 0 - 0.47 x10E9/L 03/11/2016 3:30 PM [facility] Basophils Absolute 0.05 0 - 0.08 x10E9/L 03/11/2016 3:30 PM [facility] Immature Granulocytes Absolute 0.02 0.00 - 0.06 x10E9/L 03/11/2016 3:30 PM [facility] nRBC Auto 0 /100 WBC 03/11/2016 3:30 PM [facility] Blood BLOOD SPECIMEN / Unknown Lab Venipuncture / Unknown 03/11/2016 3:08 PM CARRIAGE OPERATOR 03/11/2016 3:08 PM [facility] Narrative Authorizing Provider Result Dot Nolasco MD LAB - HEMATOLOGY OR DERABLES [facility] [address] [place] [address] * (ABNORMAL) COMPREHENSIVE METABOLIC PANEL (03/11/2016 3:08 PM [facility]) [facility] Glucose 104 74 - 106 mg/dL 03/11/2016 3:52 PM [facility] Sodium 141 136 - 145 mmol/L 03/11/2016 3:52 PM [facility] Potassium 4.5 3.5 - 5.1 mmol/L 03/11/2016 3:52 PM [facility] Chloride 105 98 - 107 mmol/L 03/11/2016 3:52 PM [facility] CO2 31 22 - 31 mmol/L 03/11/2016 3:52 PM [facility] Calcium 8.7 8.5 - 10.1 mg/dL 03/11/2016 3:52 PM [facility] Anion Gap 5(L) 8 - 16 mmol/L 03/11/2016 3:52 PM [facility] BUN 15 7 - 21 mg/dL 03/11/2016 3:52 PM [facility] Creatinine 0.97 0.50 - 1.30 mg/dL 03/11/2016 3:52 PM [facility] Alkaline Phosphatase 84 38 - 126 U/L 03/11/2016 3:52 PM [facility] ALT 23 13 - 61 U/L 03/11/2016 3:52 PM [facility] AST 19 5 - 40 U/L 03/11/2016 3:52 PM [facility] Protein Total 7.1 6.4 - 8.2 gm/dL 03/11/2016 3:52 PM [facility] Albumin 3.6 3.4 - 5.0 gm/dL 03/11/2016 3:52 PM [facility] Bilirubin Total 0.5 0.2 - 1.0 mg/dL 03/11/2016 3:52 PM [facility] eGFR by MDRD 59(L) >60 mL/min/1.7 3m2 03/11/2016 3:52 PM CARRIAGE OPERATOR [facility] eGFR by MDRD >60 >60 mL/min/1.7 3m2 03/11/2016 3:52 PM CARRIAGE OPERATOR [facility] Blood BLOOD SPECIMEN / Unknown Lab Venipuncture / Unknown 03/11/2016 3:08 PM CARRIAGE OPERATOR 03/11/2016 3:08 PM CARRIAGE OPERATOR Onel Nolasco MD LAB - CHEMISTRY DHAVAL BEVERLY [facility] [address] [place] [address] * LAB HISTORICAL RESULTS-ONBASE (03/11/2016) Only the most recent of2 resultswithin the time period is included. 03/11/2016 Historical Provider LAB - CHEMISTRY Miranda MONTESINOS [place] [id number] [address] Care Teams Manager Inspection Relationship Specialty Start Date End Date Anuj Choudhary MD [address] [facility] [address] [facility] [address] [place] [address] PCP - General Family Medicine 03/11/16
--- OUTSIDE RECORDS SUMMARY | 2024-04-22 05:25 | XMS_ITS | Clinical Summary ---
Author Organization [facility] Allan Isbell Address [address] [place] [address] Care Team Providers Care Slubber Runner Name Role Phone Wander Velasquez MD Primary Care Provider [phone] Allergies Active Allergy Reactions Criticality Noted Date Comments Iron Rash Medium 01/15/2016 Medications metFORMIN (GLUCOPHAGE XR) 500 mg Extended Release 24 hour tablet Take 500 mg by mouth daily. Active metoprolol tartrate (LOPRESSOR) 25 mg tablet Take 25 mg by mouth 2 times daily. Active cholecalciferol 1,250 mcg (50,000 unit) Capsule Take 50,000 Units by mouth every 7 days. Active aspirin (RAQUEL) 325 mg tablet Take 325 mg by mouth. Active albuterol sulfate HFA 90 mcg/actuation aerosol inhaler INHALE 1 TO 2 PUFFS BY MOUTH EVERY 4 HOURS NEEDED FOR SHORTNESS OF BREATH OR WHEEZING 2 Active glimepiride (AMARYL) 1 mg tablet Take 1 mg by mouth. Active lisinopriL (PRINIVIL) 2.5 mg tablet Take 2.5 mg by mouth daily. Active rosuvastatin (CRESTOR) 20 mg tablet Take 1 Tablet by mouth daily. 4 Active fish oil-omega-3 fatty acids 340-1,000 mg Capsule Take 1 Capsule by mouth daily. Active Active Problems No known active problems Encounters Date Type Department Care Team Description 04/20/2024 External Device Data STL ABSTRACTION Provider, Abstract 04/04/2024 11:00 AM REWARDS CONSULTANT Office Visit [facility] Oncology and Hematology - [place] [address] [place] [id number] Ethan Santos MD Polycythemia, secondary (Primary Dx) 03/30/2024 External Device Data STL ABSTRACTION Provider, Abstract 03/25/2024 Orders Only [facility] Oncology and Hematology - [place] [address] [place] [address] Ethan Santos MD 03/24/2024 External Device Data STL ABSTRACTION Provider, Abstract 03/22/2024 Orders Only [facility] Oncology and Hematology - [place] [address] [place] [address] Ethan Santos MD 03/16/2024 Orders Only [facility] Oncology and Hematology - [place] [address] [place] [address] Ethan Santos MD 03/15/2024 External Device Data STL ABSTRACTION Provider, Abstract 03/15/2024 Abstract [facility] Oncology and Hematology - [place] [address] [place] [address] Chaya Thacker 03/15/2024 Orders Only [facility] Oncology and Hematology - [place] [address] [place] [address] Ethan Santos MD Anemia associated with nutritional deficiency (Primary Dx) 03/15/2024 Telephone [facility] Oncology and Hematology - [place] [address] [place] [address] Ethan Santos MD Lab Results 03/04/2024 10:30 AM REWARDS CONSULTANT Office Visit [facility] Oncology and Hematology - [place] [address] [place] [address] Nadeen Burrell MD Polycythemia, secondary (Primary Dx) from Last 3 Months Family History Medical History Relation Name Comments No Known Problems Daughter Heart Disease Father Diabetes Mother Diabetes Sister 1 No Known Problems Sister 2 No Known Problems Sister 3 Diabetes Sister 4 No Known Problems Son Relation Name Status Comments Daughter Alive Father Mother Sister 1 Alive Sister 2 Alive Sister 3 Alive Sister 4 Alive Son Alive Social History Tobacco Use Types Packs/Day Years Used Date Smoking Tobacco: Every Day Cigarettes 0.5 51.1 Started: 1972 Smokeless Tobacco: Never Tobacco Cessation:Ready to Q uit: Not Asked; Counseling Given: Not Answered Alcohol Use Standard Drinks/Week Comments Never 0 (1 standard drink = 0.6 oz pur e alcohol) Comments Unknown Sex and Gender Information Value Date Recorded Sex Assigned at Not on file Legal Sex Female 11:21 AM REWARDS CONSULTANT Gender Identity Not on file Sexual Orientation Not on file Last Filed Vital Signs Vital Sign Reading Time Taken Comments Blood Pressure 112/58 04/04/2024 10:52 AM REWARDS CONSULTANT Pulse 65 04/04/2024 10:52 AM REWARDS CONSULTANT Temperature 36.2 C (97.1 F) 04/04/2024 10:52 AM REWARDS CONSULTANT Respiratory Rate 16 04/04/2024 10:52 AM REWARDS CONSULTANT Oxygen Saturation 94% 04/04/2024 10:52 AM REWARDS CONSULTANT Inhaled Oxygen Concentration - - Weight 86.6 kg (191 lb) 04/04/2024 10:52 AM REWARDS CONSULTANT Height 165.1 cm (5' 5 ) 03/04/2024 10:29 AM REWARDS CONSULTANT Body Mass Index 31.78 03/04/2024 10:29 AM REWARDS CONSULTANT Plan of Treatment Upcoming Encounters Date Type Department Care Team (Late st Contact Info) Description 07/08/2024 9:15 AM CDT Office Visit [facility] Oncology and Hematology [facility] [address] [facility] [address] [place] [address] Ethan Santos MD [address] [facility] [address] [place] [address] Health Maintenance Due Date Last Done Comments Pre-Diabetes and Diabetes Screening 1955 DTAP/TDAP/TD VACCINES (1 - Tdap) 11/25/1975 PNEUMOCOCCAL VACCINE 65+ YEARS (1 of 2 - PCV) 11/24/18 77 BREAST CANCER SCREENING 1996 COLORECTAL SCREENING 2001 Colorectal Cancer Screening 2001 FIT-DNA Q 3 years 2001 FIT/FOBT Q 1 year 2001 Flex Sig/CT Colonography Q 5 years 2001 Lung Cancer Screening 2006 ZOSTER VACCINE (1 of 2) 2006 OSTEOPOROSIS SCREENING 2021 INFLUENZA VACCINE (#1) 2023 12/02/2016 RSV VACCINE (60+ or ) (1 - 1-dose 75+ series) 11/25/2031 Procedures Procedure Name Priority Date/Time Associated Diagnosis Comments JAK2 MUTATION Routine 03/23/2024 12:53 PM REWARDS CONSULTANT COMPREHENSIVE METABOLIC PANEL Routine 03/15/2024 3:43 PM REWARDS CONSULTANT CBC WITH DIFFERENTIAL Routine 03/15/2024 3:32 PM REWARDS CONSULTANT ERYTHROPOIETIN LEVEL Routine 03/15/2024 12:00 PM REWARDS CONSULTANT IRON LEVEL Routine 03/15/2024 11:14 AM REWARDS CONSULTANT from Last 3 Months Results * JAK2 MUTATION (03/23/2024 12:53 PM REWARDS CONSULTANT) Blood BLOOD SPECIMEN / Unknown us Ethan Santos MD CHEMISTRY ORDERABLES Final Resu lt * COMPREHENSIVE METABOLIC PANEL (03/15/2024 3:43 PM REWARDS CONSULTANT) Blood us Ethan Santos MD CHEMISTRY ORDERABLES Final Resu lt * CBC WITH DIFFERENTIAL (03/15/2024 3:32 PM REWARDS CONSULTANT) Blood us Ethan Santos MD HEMATOLOGY ORDERABLES Final Res ult * ERYTHROPOIETIN LEVEL (03/15/2024 12:00 PM REWARDS CONSULTANT) Blood us Ethan Santos MD CHEMISTRY ORDERABLES Final Resu lt * IRON LEVEL (03/15/2024 11:14 AM REWARDS CONSULTANT) Blood us Ethan Santos MD CHEMISTRY ORDERABLES Final Resu lt from Last 3 Months Insurance [employer] O MCR Care Teams Slubber Runner Relationship Specialty Start Date End Date Wander Velasquez MD [address] [place] [address] PCP - General Family Practice 03/04/24
--- OUTSIDE RECORDS SUMMARY | 2024-04-22 05:25 | XMS_ITS | Clinical Summary ---
Author Organization [facility] Address On license of [facility] [place] [address] Care Team Providers Care Bus Mechanic Name Role Phone Anuj Choudhary MD Primary Care Provider [phone] Social History Tobacco Use Types Packs/Day Years Used Date Smoking Tobacco: Never Assessed Comments Unknown Sex and Gender Information Value Date Recorded Sex Assigned at Not on file Legal Sex Female 6:57 PM CDT Gender Identity Not on file Sexual Orientation Not on file Plan of Treatment Health Maintenance Due Date Last Done Comments Colorectal Cancer Screening Colonoscopy (10 Years) 1956 Hepatitis C 1974 DTaP, Tdap and Td Vaccines ( 1 - Tdap) 11/25/1975 Mammogram Screening 1996 Zoster Vaccines (1 of 2) 2006 Dexa Scan (General) 2021 Pneumococcal Vaccine: 65+ Ye ars (1 of 1 - PCV) 2021 COVID-19 Vaccine ( - 2023-2 5 season) 2023 Influenza Adult (#1) 2023 RSV Immunization or 60+ Years (1 - 1-dose 75+ series) 11/25/2031 Meningococcal B Vaccine Aged Out No l onger eligible based on patient's age to complete this topic Meningococcal Vaccine Aged Out No дмитрий rowan eligible based on patient's age to complete this topic RSV Immunizations Under 20 Months Aged Out No longer eligible based on patient's age to complete this topic Care Teams Bus Mechanic Relationship Specialty Start Date End Date Anuj Choudhary MD PCP - General 01/15/16
--- NOTE | 2024-04-22 11:54 | WPDANESEPPF ---
Anes - Initial Pre Proc Eval Procedure: Operation Date: 04/22/24 13:00 Proposed Procedures p Colonoscopy - Shin Rodney MD Date/Time: 04/22/24 11:54 Surgeon: Shin Rodney MD Pre Op Diagnosis: fecal abn Patient Data Age: 68 Gender: F Height: 1.65 m Weight: 84 kg Allergies Allergy/AdvReac Type Severity Reaction Status Date / Time iron Allergy Unknown Rash Verified 04/22/24 12:03 Home Medications ?Medication ?Instructions ?Recorded ?Confirmed ?Type aspirin 81 mg tablet,delayed 81 mg PO DAILY 05/24/19 04/22/24 History release (Adult Low Dose Aspirin) omega-3 fatty acids 1,000 mg 1,000 mg PO TID #30 caps 01/09/22 04/22/24 Rx capsule mecobalamin (vitamin B12) 1,000 1,000 mcg PO DAILY 01/20/22 04/22/24 History mcg chewable tablet Advair HFA 115 mcg-21 See Rx Instructions .Route 09/11/23 04/08/24 Rx mcg/actuation aerosol inhaler .COMPLEX #12 grams (fluticasone propion-salmeterol) blood sugar diagnostic (OneTouch #100 ea 11/16/23 04/08/24 Rx Verio test strips) glimepiride 1 mg tablet 1 mg PO QAM #90 tabs 03/28/24 04/22/24 Rx lisinopril 2.5 mg tablet See Rx Instructions .Route 03/28/24 04/22/24 Rx .COMPLEX #90 tabs metformin 500 mg tablet See Rx Instructions .Route 03/28/24 04/22/24 Rx .COMPLEX #90 tabs rosuvastatin 20 mg tablet See Rx Instructions .Route 03/28/24 04/22/24 Rx .COMPLEX #90 tabs cholecalciferol (vitamin D3) 1,250 1,250 mcg PO WEEKLY #12 caps 04/05/24 04/22/24 Rx mcg (50,000 unit) capsule metoprolol tartrate 25 mg tablet See Rx Instructions .Route 04/06/24 04/22/24 Rx .COMPLEX #90 tabs Patient hx anesthesia problems: none Family hx anesthesia problems: none Results Review: All pre-operative results and documents have been reviewed as part of the pre-operative evaluation. [facility] Past Medical History Medical History (Updated 04/08/24 @ 08:34 by Vincenzo Grier DO) Erythrocytosis Skin lesion of left arm Low back pain radiating to right leg Radiculitis, cervical Cervicalgia Microscopic hematuria Diabetes mellitus Vitamin D deficiency Screening for lung cancer Breast cancer screening BMI 34.0-34.9,adult Encounter to establish care COPD (chronic obstructive pulmonary disease) B12 deficiency Obesity Smoking CAD (coronary artery disease) Dyslipidemia Essential hypertension Surgical History Surgical History (Updated 04/22/24 @ 11:54 by Rahul Holm DO) History of coronary artery stent placement x1 H/O: hysterectomy History of delivery Family History Family History Mother Diabetes mellitus Patient's mother is Family history of diabetes mellitus in first degree relative Family history of coronary artery disease Bipolar 1 disorder Father Patient's father is Hypertension Family history of coronary artery disease Sibling Family history of type 2 diabetes mellitus Family history of diabetes mellitus in first degree relative Grandparent Diabetes mellitus Grandparent Hypertension Heart disease Family history of coronary artery disease Social History Social History Smoking packs per day: 0.5 Smoking cigarettes per day: 10.0 Years smoked: 52 Smoking pack-years: 26.00 Smoking status: Current every day smoker Tobacco type: cigarettes Alcohol intake: former Substance use: never Substance use type: does not use Do You Feel Safe in your Home?: Yes Lack of Transportation: No Lack of Food: Never True Current Housing: I Have Housing Concerned About Future Housing: No Difficulty Paying Gas/Electric Bills: No Difficulty Paying for Meds: No Currently Unemployed: No Education: High School Diploma/GED Difficulty w/ Childcare or Family Care: No Living arrangements: alone Spiritual care concerns: No Anes - Eval Final PreProcedure Day of Procedure 04/22/24 11:54 Patient weight: obese Heart: regular rate and rhythm Lungs: clear to auscultation Airway: Mallampati scale class II Neurological: alert and oriented Last oral intake: >/= 8 hours ASA classification: III Emergent: no Anesthetic plan: proceed Anesthesia type and monitoring: general GIVS and standard monitoring Results Review: All pre-operative results and documents have been reviewed as part of the pre-operative evaluation. Informed Consent: The patient's anesthetic plan and its attendant risks and benefits were discussed with the patient/family/POA. Questions were solicited and answers provided to the satisfaction of the patient/family/POA.
[2024-04-22 12:05] VITALS: BP 136/66; PULSE 97; RESP 20; TEMP 36.3; O2SAT 97; BMI 31.3
[2024-04-22] MEDS: LACTATED RINGERS 1,000 ML 150 ML IV CONT (12:15)
[2024-04-22 12:20] LABS: Glucose Point of Care 114 mg/dl (65-105)
--- NOTE | 2024-04-22 12:36 | PM.HPGS ---
History of Present Illness History of Present Illness Consent: Risks, benefits, and alternatives have been discussed and questions answered. Patient agrees to proceed with procedure. Chief complaint: fecal abn Narrative: Liseth Jones is a 68 year old female here for first colonoscopy, had + cologuard Review of Systems Review of Systems: All systems reviewed & are unremarkable except as noted in HPI and below PMFSH Past Medical History Medical History (Updated 04/08/24 @ 08:34 by Vincenzo Grier DO) Erythrocytosis Skin lesion of left arm Low back pain radiating to right leg Radiculitis, cervical Cervicalgia Microscopic hematuria Diabetes mellitus Vitamin D deficiency Screening for lung cancer Breast cancer screening BMI 34.0-34.9,adult Encounter to establish care COPD (chronic obstructive pulmonary disease) B12 deficiency Obesity Smoking CAD (coronary artery disease) Dyslipidemia Essential hypertension Surgical History Surgical History (Updated 04/22/24 @ 11:54 by Rahul Holm DO) History of coronary artery stent placement x1 H/O: hysterectomy History of delivery Family History Family History Mother Diabetes mellitus Patient's mother is Family history of diabetes mellitus in first degree relative Family history of coronary artery disease Bipolar 1 disorder Father Patient's father is Hypertension Family history of coronary artery disease Sibling Family history of type 2 diabetes mellitus Family history of diabetes mellitus in first degree relative Grandparent Diabetes mellitus Grandparent Hypertension Heart disease Family history of coronary artery disease Social History Social History Smoking packs per day: 0.5 Smoking cigarettes per day: 10.0 Years smoked: 52 Smoking pack-years: 26.00 Smoking status: Current every day smoker Tobacco type: cigarettes Alcohol intake: former Substance use: never Substance use type: does not use Do You Feel Safe in your Home?: Yes Lack of Transportation: No Lack of Food: Never True Current Housing: I Have Housing Concerned About Future Housing: No Difficulty Paying Gas/Electric Bills: No Difficulty Paying for Meds: No Currently Unemployed: No Education: High School Diploma/GED Difficulty w/ Childcare or Family Care: No Living arrangements: alone Spiritual care concerns: No Meds Home Medications and Allergies Home Medications ?Medication ?Instructions ?Recorded ?Confirmed ?Type aspirin 81 mg tablet,delayed 81 mg PO DAILY 05/24/19 04/22/24 History release (Adult Low Dose Aspirin) omega-3 fatty acids 1,000 mg 1,000 mg PO TID #30 caps 01/09/22 04/22/24 Rx capsule mecobalamin (vitamin B12) 1,000 1,000 mcg PO DAILY 01/20/22 04/22/24 History mcg chewable tablet Advair HFA 115 mcg-21 See Rx Instructions .Route 09/11/23 04/08/24 Rx mcg/actuation aerosol inhaler .COMPLEX #12 grams (fluticasone propion-salmeterol) blood sugar diagnostic (OneTouch #100 ea 11/16/23 04/08/24 Rx Verio test strips) glimepiride 1 mg tablet 1 mg PO QAM #90 tabs 03/28/24 04/22/24 Rx lisinopril 2.5 mg tablet See Rx Instructions .Route 03/28/24 04/22/24 Rx .COMPLEX #90 tabs metformin 500 mg tablet See Rx Instructions .Route 03/28/24 04/22/24 Rx .COMPLEX #90 tabs rosuvastatin 20 mg tablet See Rx Instructions .Route 03/28/24 04/22/24 Rx .COMPLEX #90 tabs cholecalciferol (vitamin D3) 1,250 1,250 mcg PO WEEKLY #12 caps 04/05/24 04/22/24 Rx mcg (50,000 unit) capsule metoprolol tartrate 25 mg tablet See Rx Instructions .Route 04/06/24 04/22/24 Rx .COMPLEX #90 tabs Allergies Allergy/AdvReac Type Severity Reaction Status Date / Time iron Allergy Unknown Rash Verified 04/22/24 12:03 Vital Signs Vital Signs - 24 hr 04/22/24 12:05 Temperature 97.4 F L Pulse Rate 97 Respiratory Rate 20 Blood Pressure 136/66 Pulse Oximetry 97 Oxygen Delivery Room Air Exam Const: General: comfortable and no acute distress HENMT: Face/Nose/Sinus: Normal nares present Eyes: General: appearance normal, both eyes and all related structures Neck: Neck: no JVD Resp: Auscultation: clear to auscultation bilaterally Cardio: Rate: regular rate Rhythm: regular rhythm GI: Inspection: non-distended GI Palp: Yes Soft to palpation Skin: General skin exam: normal color Neuro: Speech: normal speech Extrem: General: normal to inspection Psych: Mental Status: mental status grossly normal Assessment and Plan Assessment and plan (1) Positive colorectal cancer screening using DNA-based stool test: Code(s): R19.5 - Other fecal abnormalities Status: Acute Assessment and Plan: colonoscopy
[2024-04-22 13:04] VITALS: BP 98/61; PULSE 68; RESP 22; O2SAT 96
[2024-04-22 13:14] VITALS: BP 108/69; PULSE 68; RESP 21; O2SAT 96
[2024-04-22 13:24] VITALS: BP 108/70; PULSE 66; RESP 22; O2SAT 98
== END 2024-04-22 13:40 | disposition home or self-care (01) ==
PROVIDERS: PCP Family Medicine; Visit Provider Internal Medicine Gastroenterology
PROC: 0DJD8ZZ Inspection of Lower Intestinal Tract, Via Natural or Artificial Opening Endoscopic (ICD-10-PCS; CPT 45378; principal; 2024-04-22 13:00)
DX: D12.2 Benign neoplasm of ascending colon (principal); K63.5 Polyp of colon; D12.8 Benign neoplasm of rectum; K64.8 Other hemorrhoids; E78.5 Hyperlipidemia, unspecified; I10 Essential (primary) hypertension; E11.9 Type 2 diabetes mellitus without complications; E55.9 Vitamin D deficiency, unspecified; I25.10 Atherosclerotic heart disease of native coronary artery without angina pectoris; J44.9 Chronic obstructive pulmonary disease, unspecified; E53.8 Deficiency of other specified B group vitamins; D75.1 Secondary polycythemia; F17.210 Nicotine dependence, cigarettes, uncomplicated; E66.9 Obesity, unspecified; Z68.31 Body mass index [BMI] 31.0-31.9, adult; Z79.82 Long term (current) use of aspirin; Z79.51 Long term (current) use of inhaled steroids; Z79.84 Long term (current) use of oral hypoglycemic drugs; Z98.890 Other specified postprocedural states; Z95.5 Presence of coronary angioplasty implant and graft; Z82.49 Family history of ischemic heart disease and other diseases of the circulatory system
CPT/HCPCS: 45378; 82948; 88305; J2003; J2704; J7120

== ENCOUNTER 2024-04-25 11:10 | Outpatient (CLI) | payer MEDICARE, SELFPAY ==
--- NOTE | ~2024-04-25 | US_ITS ---
EXAMINATION: US carotid duplex BI DATE: 04/25/2024 12:47 SUBSYSTEMS ENGINEER INDICATION: TIA TECHNIQUE: Grayscale, color Doppler, and pulsed Doppler images of the cervical carotid arteries were obtained. The degree of vessel stenosis is placed in one of the following categories: normal, <50%, 50-69%, >=7 0% but less than near-occlusion, near-occlusion, or total occlusion. Note that percent stenosis relative to normal distal artery lumen diameter is indirectly measured fro m velocity measurements as described originally by Sumit, et al. Radiology 2003; 229:340-346 and upda gemma by Boyd Reddy et al STROKE 2012;43(3);915-921. COMPARISON: None. FINDINGS: There is mild atherosclerosis of both carotid arteries. Peak systolic velocity (in cm/s) is detailed below RIGHT: Right common carotid artery (CCA): 63 cm/s. Right internal carotid artery (ICA) PSV: 138 cm/s. Right ICA end-diastolic velocity (EDV): 34 cm/s. Right ICA/CCA PSV ratio is 2.2. Right external carotid artery (ECA): 138cm/s. There is antegrade flow in the right vertebral artery with a LEFT: Left common carotid artery (CCA): 73 cm/s. Left internal carotid artery (ICA) PSV: 112 cm/s. Left ICA end-diastolic velocity (EDV): 36 cm/s. Left ICA/CCA PSV ratio is 1.5. Left external carotid artery (ECA): 82cm/s. There is antegrade flow in the left vertebral artery. IMPRESSION: 1. 50-69% stenosis in the right internal carotid artery. 2. Less than 50% stenosis in the left internal carotid artery. Reviewed, dictated and finalized at location A. YSTEMS ENGINEER
--- OUTSIDE RECORDS SUMMARY | 2024-04-25 13:05 | XMS_ITS | Clinical Summary ---
Author Organization [facility] Address [facility] [place] [address] Care Team Providers Care Barker Peeler Name Role Phone Anuj Choudhary MD Primary Care Provider Social History Tobacco Use Types Packs/Day Years [...] age to complete this topic Care Teams Barker Peeler Relationship Specialty Start Date End Date Anuj Choudhary MD PCP - General 01/15/16
--- OUTSIDE RECORDS SUMMARY | 2024-04-25 13:05 | XMS_ITS | Clinical Summary ---
Author Organization [facility] Address [address] [place] [address] Phone Care Team Providers Care Shove Up Name Role Phone Wander Joiner DO Unavailable [phone] Guilherme Felix MD Primary Care Provider [phone] Anuj Choudhary Unavailable Allergies Active Allergy Reactions Criticality Noted Date Comments Iron Rash 01/15/2016 Medications metFORMIN (GLUCOPHAGE) 500 MG Tablet Take 1 Tablet by mouth. 1 Active [place]-3 Fatty Acids (fish oil) 1200 MG Capsule [...] mouth. Active Cholecalciferol (Vitamin D3) 1.25 MG (68741 UT) Capsule TAKE 1 CAPSULE BY MOUTH [...] on file Legal Sex Female 11:37 AM ACETALDEHYDE CONVERTER OPERATOR Gender Identity Not on file Sexual Orientation [...] AM CDT Lab [facility] [address] [address] Lab, [facility] 08/05/2024 9:15 AM CDT Office Visit [facility] [address] [phone] Wander Joiner, [address] [place] [phone] Health Maintenance Due Date Last Done Comments DEXA Bone Density 1955 Hepatitis C Virus (HCV) Screening 1955 Mammogram 1955 TdaP Immunization 1955 Colonoscopy 2001 Colorectal Cancer Screening 2001 Cologuard 2006 Immunochemical Fecal Occult Blood 2006 Influenza Immunization (#1) 2023 090 08/2022, [...] to complete this topic Insurance MEDIC[facility] Care Teams Shove Up Relationship Specialty Start Date End Date Guilherme Felix MD [address] [place] [id number] PCP - General Family Medicine 08/12/22 Wander Joiner DO [address] [place] [phone] Consulting Physician Oncology 08/08/22 Anuj Choudhary [address] [place] [address] Family Medicine 08/12/22
--- OUTSIDE RECORDS SUMMARY | 2024-04-25 13:05 | XMS_ITS | Clinical Summary ---
Author Organization [facility] Allan Isbell Address [address] [place] [address] Care Team Providers Care Client Service Executive Name Role Phone Wander Velasquez MD Primary Care Provider [phone] Allergies Active Allergy Reactions Criticality Noted Date [...] STL ABSTRACTION Provider, Abstract 04/04/2024 11:00 AM POT BUILDER Office Visit [facility] - [place] [address] [place] [id number] Ethan Santos MD Polycythemia, secondary (Primary Dx) 03/30/2024 External Device Data STL ABSTRACTION Provider, Abstract 03/25/2024 Orders Only [facility] - [place] [address] [place] [address] Ethan Santos MD 03/24/2024 External Device Data STL ABSTRACTION Provider, Abstract 03/22/2024 Orders Only [facility] - [place] [address] [place] [address] Ethan Santos MD 03/16/2024 Orders Only [facility] - [place] [address] [place] [address] Ethan Santos MD 03/15/2024 External Device Data STL ABSTRACTION Provider, Abstract 03/15/2024 Abstract [facility] - [place] [address] [place] [address] Chaya Thacker 03/15/2024 Orders Only [facility] - [place] [address] [place] [address] Ethan Santos MD Anemia associated with nutritional deficiency (Primary Dx) 03/15/2024 Telephone [facility] - [place] [address] [place] [address] Ethan Santos MD Lab Results 03/04/2024 10:30 AM POT BUILDER Office Visit [facility] - [place] [address] [place] [phone] Nadeen Burrell MD Polycythemia, secondary (Primary Dx) [...] on file Legal Sex Female 11:21 AM POT BUILDER Gender Identity Not on file Sexual Orientation Not on file Last Filed Vital Signs Vital Sign Reading Time Taken Comments Blood Pressure 112/58 04/04/2024 10:52 AM POT BUILDER Pulse 65 04/04/2024 10:52 AM POT BUILDER Temperature 36.2 C (97.1 F) 04/04/2024 10:52 AM POT BUILDER Respiratory Rate 16 04/04/2024 10:52 AM POT BUILDER Oxygen Saturation 94% 04/04/2024 10:52 AM POT BUILDER Inhaled Oxygen Concentration - - Weight 86.6 kg (191 lb) 04/04/2024 10:52 AM POT BUILDER Height 165.1 cm (5' 5 ) 03/04/2024 10:29 AM POT BUILDER Body Mass Index 31.78 03/04/2024 10:29 AM POT BUILDER Plan of Treatment Upcoming Encounters Date Type Department Care Team (Late st Contact Info) Description 07/08/2024 9:15 AM CDT Office Visit [facility] Oncology and Hematology [facility] [address] [facility] [address] [place] [address] Ethan Santos MD [address] [facility] [address] [place] [address] Health Maintenance Due Date Last [...] Comments JAK2 MUTATION Routine 03/23/2024 12:53 PM POT BUILDER COMPREHENSIVE METABOLIC PANEL Routine 03/15/2024 3:43 PM POT BUILDER CBC WITH DIFFERENTIAL Routine 03/15/2024 3:32 PM POT BUILDER ERYTHROPOIETIN LEVEL Routine 03/15/2024 12:00 PM POT BUILDER IRON LEVEL Routine 03/15/2024 11:14 AM POT BUILDER from Last 3 Months Results * JAK2 MUTATION (03/23/2024 12:53 PM POT BUILDER) Blood BLOOD SPECIMEN / Unknown us Ehtan Santos MD CHEMISTRY ORDERABLES Final Resu lt * COMPREHENSIVE METABOLIC PANEL (03/15/2024 3:43 PM POT BUILDER) Blood us Ethan Santos MD CHEMISTRY ORDERABLES Final Resu lt * CBC WITH DIFFERENTIAL (03/15/2024 3:32 PM POT BUILDER) Blood us Ethan Santos MD HEMATOLOGY ORDERABLES Final Res ult * ERYTHROPOIETIN LEVEL (03/15/2024 12:00 PM POT BUILDER) Blood us Ethan Santos MD CHEMISTRY ORDERABLES Final Resu lt * IRON LEVEL (03/15/2024 11:14 AM POT BUILDER) Blood us Ethan Santos MD CHEMISTRY ORDERABLES Final Resu lt from Last 3 Months Insurance [employer] O MCR Care Teams Client Service Executive Relationship Specialty Start Date End Date Wander Velasquez MD [address] [place] [address] PCP - General Family Practice 03/04/24
--- OUTSIDE RECORDS SUMMARY | 2024-04-25 13:05 | XMS_ITS | Continuity of Care Document ---
Author Organization [facility] Address [address] [place] [address] Phone Care Team Providers Care Mobile Development Manager Name Role Phone Anuj Choudhary MD Unavailable Unavailable Allergies, Adverse Reactions, Alerts Substance Reaction Status Criticality No Known Allergies Active No Inform ation Medications Medication Instructions Dosage Effective Dates (start - stop) Status Comments OneTouch Verio test strips use once per day - Active E11.9 Lancets,Thin use once per day - Active [...] Provider Providers Copied on Encounter [facility], [address], [place], [place], [address], [place] tel:[phone] [facility] No Information 3 Kenrick Leslie. [address], [place], [place], [address] , [place]. tel:[phone] [facility], [address], [place], [place], [address], [place] tel:[phone] [facility] No Information 2 Kenrick Leslie. [address], [place], [place], [address] , [place]. tel:[phone] OFFICE/OUTPA TIENT VISIT, [facility], [address], [place], [place], [address], [place] tel:[phone] [facility] sleep apnea1 (chief complaint) DM (chief complaint) phos1 (chief complaint) HTN (chief complaint) HyperlipidemiaEssen tial (primary) hypertensionType 2 diabetes mellitus without complicationsOther disorders of phosphorus metabolismSleep apnea 2 Kenrick Padilla [address], [place], [place], [address] , [place]. tel:[phone] Referring Provider: Anuj Choudhary [address], [place], [place], [address]. tel:[phone] OFFICE/OUTPA TIENT VISIT, [facility], [address], [place], [address], [place] tel:[phone] [facility] HLP (chief complaint) DM (chief complaint) HTN (chief complaint) hematuria1 (chief complaint) sleep apnea1 (chief complaint) back pani1 (chief complaint) HyperlipidemiaType 2 diabetes mellitus without complicationsHematu riaEssential (primary) hypertensionLumbago with sciatica, right sideSecondary polycythemia Mar- 2 Kenrick Leslie. [address], [place], [place], [address] , [place]. tel:[phone] Referring Provider: Zen Pollard [address], [place], [place], [address]. tel:[phone] OFFICE/OUTPA TIENT VISIT, EST [facility], [address], [place], [place], [address], [place] tel:[phone] [facility] Medicine hematuria1 (chief complaint) polycythem ia1 (chief complaint) DM (chief complaint) HLP (chief complaint) Secondary polycythemiaHyperli pidemiaType 2 diabetes mellitus without complicationsHematu riaDermatophytosis of nail Jan- 1 Kenrick Leslie. [address], [place], [place], [address] , [place]. tel:[phone] Referring Provider: Zen Pollard [address], [place], [place], [address]. tel:[phone] PREV VISIT, EST, AGE 40-64 [facility], [address], [place], [place], [address], [place] tel:[phone] [facility] Medicine physical (chief complaint) Encounter for general adult medical examination without abnormal findings 1 Kenrick Leslie. [address], [place], [place], [address] , [place]. tel:[phone] Referring Provider: Zen Pollard [address], [place], [place], [address]. tel:[phone] OFFICE/OUTPA TIENT VISIT, EST [facility], [address], [place], [place], [address], [place] tel:[phone] [facility] lymph node1 (chief complaint) HTN (chief complaint) HLP (chief complaint) Essential (primary) hypertensionSeconda ry polycythemiaTobacco useHyperlipidemiaLy mphadenopathyEncoun ter for oth screening for malignant neoplasm of breastHyperglycemia 1 Kenrick Leslie. [address], [place], [place], [address] , [place]. tel:[phone] Referring Provider: Zen Pollard [address], [place], [place], [address]. tel:[phone] PREV VISIT, EST, AGE 40-64 [facility], [address], [place], [place], [address], [place] tel:[phone] [facility] PHysical (chief complaint) Encntr for general adult medical exam w/o abnormal findings 0 Kenrick Leslie. [address], [place], [place], [address] , [place]. tel:[phone] Referring Provider: Zen Pollard [address], [place], [address]. tel:[phone] OFFICE/OUTPA TIENT VISIT, EST [facility], [address], [place], [address], [place] tel:[phone] [facility] HTN (chief complaint) hearing loss1 (chief complaint) fatty liver1 (chief complaint) hematuria1 (chief complaint) HematuriaEssential (primary) hypertensionFatty liverUmbilical herniaHearing loss 9 Kenrick Leslie. [address], [place], [place], [address] , [place]. tel:[phone] Referring Provider: Zen Pollard [address], [place], [address]. tel:[phone] OFFICE/OUTPA TIENT VISIT, EST [facility], [address], [place], [place], [address], [place] tel:[phone] [facility] HLp (chief complaint) polycythmi a1 (chief complaint) low D (chief complaint) hematuria1 (chief complaint) hearing loss1 (chief complaint) Body mass index (BMI) 34.0-34.9, adultHematuriaEssen tial (primary) hypertensionSeconda ry polycythemiaHearing lossTobacco useHyperlipidemia 8 Kenrick Leslie. [address], [place], [place], [address] , [place]. [phone] Referring Provider: Zen Pollard [address], [place], [place], [address]. tel:[phone] PREV VISIT, EST, AGE 40-64 [facility], [address], [place], [address], [place] tel:[phone] [facility] PHysical (chief complaint) Encounter for general adult medical exam w abnormal findingsHyperlipide miaEssential (primary) hypertensionHematur iaCoronary artery disease of creek coronary artery without angina pectoris 8 Kenrick Leslie. [address], [place], [place], [address] , [place]. [phone] Referring Provider: Zen Pollard [address], [place], [place], [address]. tel:[phone] OFFICE/OUTPA TIENT VISIT, [facility], [address], [place], [place], [address], [place] tel:[phone] [facility] HTN (chief complaint) hematuria1 (chief complaint) HLP (chief complaint) tobacco1 (chief complaint) skin1 (chief complaint) Essential (primary) hypertensionHyperli pidemiaNevus, non-neoplasticHemat uria 7 Kenrick Leslie. [address], [place], [address] , [place]. [phone] Referring Provider: Zen Pollard [address], [place], [place], [address]. tel:[phone] OFFICE/OUTPA TIENT VISIT, EST [facility], [address], [place], [address], [place] tel:[phone] [facility] tobacco1 (chief complaint) hematuria1 (chief complaint) HLP (chief complaint) HTN (chief complaint) Essential (primary) hypertensionTobacco useHyperlipidemiaHe maturia 7 Kenrick Leslie. [address], [place], [place], [address] , [place]. [phone] Referring Provider: Zen Pollard [address], [place], [place], [address]. tel:[phone] OFFICE/OUTPA TIENT VISIT, [facility], [address], [place], [place], [address], [place] tel:[phone] [facility] hematuria1 (chief complaint) knee pain1 (chief complaint) HTN (chief complaint) HLP (chief complaint) HematuriaPain in right kneeHyperlipidemiaE ssential (primary) hypertension 6 Kenrick Leslie. [address], [place], [place], [address] , [place]. tel:[phone] Referring Provider: Zen Pollard [address], [place], [place], [address]. tel:[phone] OFFICE/OUTPA TIENT VISIT, [facility], [address], [place], [place], [address], [place] [phone] [facility] hematuria1 (chief complaint) polycyther mia1 (chief complaint) HTN (chief complaint) knee pian1 (chief complaint) HematuriaSecondary polycythemiaEssenti al (primary) hypertensionBody mass index (BMI) 35.0-35.9, adult Jan- 6 Kenrick Leslie. [address], [place], [place], [address] , [place]. tel:[phone] Referring Provider: Zen Pollard [address], [place], [place], [address]. tel:[phone] OFFICE/OUTPA TIENT VISIT, [facility], [address], [place], [place], [address], [place] tel:[phone] [facility] HLP (chief complaint) polycyther mia1 (chief complaint) hematuria1 (chief complaint) HyperlipidemiaSecon delfina polycythemiaHematur iaVitamin D deficiency, unspecified 6 Kenrick Leslie. [address], [place], [address] , [place]. tel:[phone] Referring Provider: Anuj Choudhary [address] [facility] [address], [place], [place], [address]. tel:[phone] PREV VISIT, NEW, AGE 40-64 [facility], [address], [place], [place], [address], [place] tel:[phone] [facility] Physical (chief complaint) Encounter for general adult medical exam w abnormal findingsEssential (primary) hypertensionHyperli pidemia 6 Kenrick Leslie. [address], [place], [place], [address] , [place]. tel:[phone] Referring Provider: Zen Pollard [facility] [address], [place], [place], [address]. tel:[phone] Family History Family Member Type Diagnosis Age At Onset Father Problem (finding) of murder Father Problem (finding) Mother Problem (finding) of drug OD Sister Problem (finding) Diabetes mellitus type 2 Mother Problem (finding) Payers Payer name Insurance type Covered constitution party ID Authoriza tion(s) No Information Social [...] -Podiatric Medicine & Surgery Service Providers : Dairy Cattle Farm Worker (related to Dermatophytosis of nail) ordered Referral Ordered: Occupational Therapy (related to Type 2 diabetes mellitus without complications) ordered Referral Referred To: Occupational Therapy Ordered: Referrals: Occupational Therapy. Evaluate and treat ordered Referral Referred To: TIAGO HARRIS [address] [facility] [facility] [place], [place], [phone] Ordered: Referrals: Podiatric Medicine & Surgery Service Providers : Dairy Cattle Farm Worker. TIAGO HARRIS. Evaluate and treat ordered Referral [...] Otolaryngology. 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 [place], [place] [id number] Ordered: Referrals: Allopathic & Osteopathic Physicians : Internal Medicine : Cardiovascular Disease. Vincnezo Grier. Evaluate and treat ordered Referral Referred To: Marc Bailey [address] [place], [phone] Ordered: Referrals: Allopathic & Osteopathic Physicians : Urology. Marc Bailey. Evaluate and treat ordered Referral Ordered: DXA BONE DENSITY, AXIAL ordered Referral Ordered: Itz Cameron (related to Nevus, non-neoplastic) ordered Referral Referred To: Itz Cameron [address] [place], [phone] Ordered: Referrals: Itz Cameron. Evaluate and treat ordered Referral Ordered: CT THORAX W/O DYE ordered Referral Ordered: Onel Nolasco (related to Hematuria) ordered Referral Ordered: Marc Bailey (related to Hematuria) ordered Referral Referred To: Marc Bailey [address] [place], [phone] Ordered: Referrals: Marc Bailey. Evaluate and treat ordered Referral Ordered: US, PELVIC (NONOBSTETRIC); ordered Referral Referred To: Onel Nolasco [address] [place], [phone] Ordered: Referrals: Onel Nolasco. Evaluate and treat ordered Referral Ordered: CT ABDOMEN&PELVIS W/CONTRAST ordered Referral Ordered: KNEE XRAY TWO-VIEW Right ordered Referral Ordered: Hematology (related to Secondary polycythemia) ordered Referral Ordered: Referrals: Hematology. Evaluate and treat ordered Referral Ordered: Vincenzo Grier (related to Hyperlipidemia) ordered Referral Ordered: MAMMOGRAM, SCREENING ordered Referral Referred To: Vincenzo Grier [address] [place], [phone] Ordered: Referrals: Vincenzo Grier. 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 [...] has chronic hematuria Pt sees urology at [facility] ,Pt had negative CT scan and cysto, [...] with stent. Pt used to see Dr. grire but she has not seen him for [...] removed recently. 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 Pt denies any UTI symptoms [...]
--- OUTSIDE RECORDS SUMMARY | 2024-04-25 13:05 | XMS_ITS | Clinical Summary ---
Author Organization [facility] Address [address] [place] [address] Care Team Providers Care External Auditor Name Role Phone Anuj Choudhary MD Primary Care Provider Source Comments [facility],non-owned Affiliates and Associated Physician Practices is amultiple site organization consisting of ambulatory clinics and hospital sitesin [place], [place], [place] and [place]. This disclosure is being madepursuant to the Care Everywhere program and may not contain all information available regarding this patient. Last updated 17.[facility] Allergies Active Allergy Reactions Criticality Noted Date [...] Take 1 tablet by mouth 01/02/2021 Active [place]-3 Fatty Acids (FISH OIL) 1000 MG capsule [...] 36.2 C (97.2 F) 03/03/2019 8:30 AM NAIL ASSEMBLY MACHINE OPERATOR Respiratory Rate 11 05/15/2016 2:45 PM CDT Oxygen Saturation 98% 08/30/2021 10:02 AM CDT Inhaled Oxygen Concentration - - Weight 95.7 kg (211 lb) 02/26/2018 8:06 AM NAIL ASSEMBLY MACHINE OPERATOR Height 165.1 cm (5' 5 ) 02/26/2018 8:06 AM NAIL ASSEMBLY MACHINE OPERATOR Body Mass Index 35.11 02/26/2018 8:06 AM NAIL ASSEMBLY MACHINE OPERATOR Plan of Treatment Health Maintenance Due Date [...] 6:54 PM 03/22/2016 3:04 PM Care Teams External Auditor Relationship Specialty Start Date End Date Anuj Choudhary MD [address] [facility] [address] [place] [address] PCP - General Family Medicine 03/11/16
--- OUTSIDE RECORDS SUMMARY | 2024-04-25 13:05 | XMS_ITS | Referral Summary ---
Author Organization [facility] Address [address] [place] [address] Care Team Providers Care Salicylic Acid Blender Name Role Phone Anuj Choudhary MD Primary Care Provider [phone] Source Comments [facility],non-owned Affiliates and Associated Physician Practices is amultiple site organization consisting of ambulatory clinics and hospital sitesin [place], [place], [place] and [place]. This disclosure is being madepursuant to the Care Everywhere program and may not contain all information available regarding this patient. Last updated 17.[facility] Allergies Active Allergy Reactions Criticality Noted Date [...] Take 1 tablet by mouth 01/02/2021 Active [place]-3 Fatty Acids (FISH OIL) 1000 MG capsule [...] 36.2 C (97.2 F) 03/03/2019 8:30 AM NURSING INFORMATICS CLINICAL ANALYST Respiratory Rate 11 05/15/2016 2:45 PM CDT Oxygen Saturation 98% 08/30/2021 10:02 AM CDT Inhaled Oxygen Concentration - - Weight 95.7 kg (211 lb) 02/26/2018 8:06 AM NURSING INFORMATICS CLINICAL ANALYST Height 165.1 cm (5' 5 ) 02/26/2018 8:06 AM NURSING INFORMATICS CLINICAL ANALYST Body Mass Index 35.11 02/26/2018 8:06 AM NURSING INFORMATICS CLINICAL ANALYST Functional Status Functional Status Response Date of [...] 6:54 PM 03/22/2016 3:04 PM Care Teams Salicylic Acid Blender Relationship Specialty Start Date End Date Anuj Choudhary MD [address] [facility] [address] [facility] [address] [place] [address] PCP - General Family Medicine 03/11/16
--- OUTSIDE RECORDS SUMMARY | 2024-04-25 13:05 | XMS_ITS | Continuity of Care Document ---
Author Organization [facility] Address [address] [place] [address] [address] [place] [address] Phone Care Team Providers Care Insurance Collector Name Role Phone Brown OD, Agapito Unavailable Unavailable Procedures Procedure Date Office/outpatient Visit, Est Office/outpatient Visit, Est Advance Directives Directive Yes / No Effective Date File Name No Information Encounters Encounter Description Practice Location Reason(s) For Visit Diagnoses Date Provider Providers Copied on Encounter Office/outpat ient Visit, [facility] [place], [address] [place] [address] [address], [place], [place], [address], tel:[phone] [facility] No Information 3-200 7 Brown OD Agapito. [address], [place], [place], [facility], . tel:[phone] Office/outpat ient Visit, [facility] [place], [address] [place] [address] [address], [place], [place], [address], tel:[phone] [facility] No Information 6-200 7 Brown OD Agap[place]. [address], [place], [address], [place]. tel:[phone] Referring Provider: Low Bui MD , [address] [facility] [address], [place], [address]. tel:[phone] Family History Family Member Type Diagnosis Age At Onset No Information Payers Payer name Insurance type Covered libertarian ID Authoriza tion(s) No Information Social History [...]
--- OUTSIDE RECORDS SUMMARY | 2024-04-25 13:05 | XMS_ITS | Patient Health Summary ---
Author Organization [facility] Address [address] [place] [address] Care Team Providers Care Dandy Tender Name Role Phone Anuj Choudhary MD Primary Care Provider [phone] Note from [facility],non-owned Affiliates and Associated Physician Practices is amultiple site organization consisting of ambulatory clinics and hospital sitesin [place], [place], [place] and [place]. This disclosure is being madepursuant to the Care Everywhere program and may not contain all information available regarding this patient. Last updated 17.[facility] Allergies * Iron(Rash) -Medium Criticality Medications * [...] 01/02/2021) Take 1 tablet by mouth * [place]-3 Fatty Acids (FISH OIL) 1000 MG capsule [...] 36.2 C (97.2 F) 03/03/2019 8:30 AM [employer] Respiratory Rate 11 05/15/2016 2:45 PM CDT Oxygen Saturation 98% 08/30/2021 10:02 AM CDT Inhaled Oxygen Concentration - - Weight 95.7 kg (211 lb) 02/26/2018 8:06 AM [employer] Height 165.1 cm (5' 5 ) 02/26/2018 8:06 AM [employer] Body Mass Index 35.11 02/26/2018 8:06 AM [employer] Procedures * CULTURE URINE(Performed 08/31/2021) * URINALYSIS AUTO - POINT OF CARE (AMB) [facility]U(Performed 08/30/2021) Performed for Hematuria, unspecified type * LAB RESULTS ORDER(Performed 03/28/2019) * LAB RESULTS ORDER(Performed 03/28/2019) * CULTURE URINE(Performed 03/04/2019) * URINALYSIS AUTO - POINT OF CARE (AMB) [facility](Performed 03/03/2019) Performed for Hematuria, unspecified type * URINALYSIS AUTO - POINT OF CARE (AMB) [facility](Performed 02/26/2018) Performed for Microhematuria * DE CYSTOURETHROSCOPY(Performed 02/26/2018) Performed for Microhematuria * CULTURE [...] OF CARE (AMB) [facility](Performed 06/04/2016) * CYTOLOGY NON-VACUUM CLEANER REPAIRER PANEL (STL)(Performed 05/15/2016) * FL CYSTOGRAM(Performed 05/15/2016) * BASIC METABOLIC PANEL (CALCIUM TOTAL)(Performed 05/15/2016) * EKG 12-LEAD(Performed 05/15/2016) * PATHOLOGY/GENETICS HISTORICAL-ONBASE(Performed 05/15/2016) * URINALYSIS REFLEX TO MICROSCOPIC NO CULTURE(Performed 04/29/2016) * CULTURE URINE(Performed 04/29/2016) * CYTOLOGY NON-VACUUM CLEANER REPAIRER PANEL (STL)(Performed 04/29/2016) * CYTOLOGY NON-VACUUM CLEANER REPAIRER PANEL (STL)(Performed 04/29/2016) * URINALYSIS AUTO - [...] QUEST Comment: CULTURE, URINE, ROUTINE Micro Number: [id number] Test Status: Final Specimen Source: Urine Specimen Quality: Adequate Result: No Growth NO COLLECTION DATE RECEIVED. WE HAVE USED THE DATE THE SPECIMEN WAS RECEIVED BY THIS LABORATORY THE COLLECTION DATE. IF THIS IS INCORRECT, PLEASE CONTACT CLIENT SERVICES. PHONE NUMBER: [phone] Test Performed at: [facility] [address] SRIKANTH FREEMAN MD 08/31/2021 2:3 0 AM CDT Marc Bailey MD LAB - MICROBIOLOGY ORDERABLES [facility] [address] [place] [address] * URINALYSIS AUTO - POINT OF CARE (AMB) [facility] (08/30/2021) Only the most recent of8 resultswithin the time period is included. Glucose UA neg Bilirubin UA POCT 17 umol/l Ketones UA POCT 0.5 mmol/l Specific [place] UA 1.020 Blood Urine POCT 25 aishwarya/ul pH UA 6.0 Protein UA 0.3 g/l Urobilinogen UA 3.5 umol/l Nitrite UA neg WBC UA 500 ar/ul Urine URINE / Unknown 08/30/2021 Marc Bailey MD LAB - POINT OF CARE ORDERABLES * LAB RESULTS ORDER (03/28/2019 12:29 PM [employer]) Only the most recent of2 resultswithin the time period is included. Narrative 03/28/2019 12:29 PM [employer] Ordered by an unspecified provider. Scanned Document LAB - THERAPEUTIC DR MARCELLUS MONITORING ORDERABLES * DE CYSTOURETHROSCOPY (02/26/2018 9:09 AM [employer]) Narrative Sheryl Muñiz APRN-CNP - 02/26/2018 9:09 AM [employer] Sheryl Muñiz APRN-CNP 02/26/2018 9:09 AM Cystoscopy [...] MISC TEST (NOT BLOOD) (01/07/2018 3:19 PM [employer]BER) Test Name Igor FISH Bladder Cancer 01/25/2018 10:02 AM [facility] Test Result See Scanned Report 01/25/2018 10:02 AM [employer] [facility] REF LAB NON INTERF Comment Ref Lab 01/25/2018 10:02 AM [employer] [facility] REF LAB NON INTERF Other URINE / Unknown Collection / Unknown 01/07/2018 3:19 PM [employer] 01/08/2018 8:51 AM [employer] Onel Nolasco MD LAB - BODY FLUID OR DERABLES [facility] REF LAB NON INTERF [address] [place] [address] [facility] [address] [place] [address] * CT UROGRAM (09/10/2016 8:56 AM CDT) Anatomical Region Laterality Modality Abdomen, Pelvis Other Impressions 09/11/2016 2:55 PM CDT IMPRESSION: 1. Normal CT urogram. Dictated by Andrea Coaets MD (radiology equipment servicer). I, Dr. NORIS TONEY M.D. have personally [...] CT urogram. Dictated by Andrea Coates MD (radiology equipment servicer). I, Dr. NORIS TONEY M.D. have personally reviewed and interpreted thisexamination/study. This report was electronically signed by NORIS TONEY M.D. on09/11/2016 2:55 PM . Marc Bailey MD CT ORDERABLES * CREATININE BLOOD - POCT (IP) [facility] (09/10/2016) Creatinine POCT 0.86 0.3 - 1.3 mg/dL [facility] eGFR POCT 60 60 ml/min [facility] 09/10/2016 Marc Bailey MD LAB - POINT OF CARE ORDERABLES [facility] * CYTOLOGY NON-VACUUM CLEANER REPAIRER PANEL (STL) (05/15/2016 1:50 PM CDT) Only the most recent of3 resultswithin the time period is included. Cytology Non-Physical Optics Teacher Accession No: [id number] Reference: Specimen: A. VOIDED, URINE B. LEFT [...] by Marco Shelley MD. Electronically signed 05/20/2016 [facility] PATHOLOGY LAB ([facility]) Other (qualifier value) 05/15/2016 1:50 PM CDT 05/15/2016 3:19 PM CDT Narrative [facility] ([facility]) - 05/27/2016 2:51 PM CDT Diagnosis->microscopic hematuria [...] CDT) BUN 14 7 - 26 mg/dL [facility] Creatinine 0.8 0.6 - 1.2 mg/dL [facility] Sodium 140 136 - 145 mmol/L [facility] Potassium 4.1 3.5 - 4.5 mmol/L [facility] Chloride 110(H) 98 - 107 mmol/L [facility] CO2 22 22 - 29 mmol/L [facility] Glucose 99 70 - 115 mg/dL [facility] Calcium 8.6 8.4 - 10.2 mg/dL [facility] Anion Gap 12 8 - 18 [facility] BUN/Creatinine Ratio 18 7 - 23 [facility] Osmolality Calculated 291 270 - 300 mOsm/kg [facility] eGFR >60 >60 mL/min/1.7 3 m2 [facility] Blood specimen (specimen) BLOOD SPECIMEN / Unknown 05/15/2016 12:05 PM CDT 05/15/2016 12:09 PM CDT Curly Rodriguez MD LAB - CHEMISTRY TALHA SMITH [address] [phone] * PATHOLOGY/GENETICS HISTORICAL-ONBASE (05/15/2016) Only the most recent of2 resultswithin the time period is included. 05/15/2016 Historical Provider LAB - CHEMISTRY O RDERABLES Performing Organization Address City/[facility]/ZIP Co de Phone Number [facility] [address] [place] [address], [facility] * EKG 12-LEAD (05/15/2016 12:00 AM CDT) EKG [facility] RADIOLOGY Comment: Exam Date/Time: May 15 2016 [...] available Confirmed by Priti CHAO, VERONICA ([id number]), science editor Jose A Vidales ([id number]) on 05/26/2016 12:41:52 PM Referred By: REFERRING SYSTEM Confirmed By:VERONICA CHAO M.D. 05/15/2016 Curly Rodriguez MD ECG ORDERABLES Performing Organization Address [facility] Co de Phone Number [facility] RADIOLOGY * (ABNORMAL) URINALYSIS REFLEX TO MICROSCOPIC NO CULTURE (04/29/2016 1:11 PM [employer]) Only the most recent of2 resultswithin the time period is included. Color UA Yellow Straw, Yellow, Colorless, Light Yellow [facility] Clarity UA Clear Clear [facility] Specific [place] UA 1.004 1.001 - 1.030 [facility] pH UA 7.0 5.0 - 8.0 [facility] Protein UA Negative <=20 mg/dL [facility] Glucose UA Negative Negative mg/dL [facility] Ketone UA Negative Negative mg/dL [facility] Bilirubin UA Negative Negative mg/dL [facility] Blood UA Trace(A) Negative [facility] Nitrite UA Negative Negative [facility] Leukocyte Esterase Large(A) Negative [facility] Urobilinogen UA <2.0 <2.0 mg/dL [facility] RBC UA 5 0 - 8 /HPF [facility] WBC UA 3(H) 0 - 2 /HPF [facility] Bacteria UA Rare Rare, Occasional, None /HPF [facility] Squamous Epithelial Cells UA 2(H) 0 - 1 /HPF [facility] Urine specimen (specimen) 04/29/2016 1:11 PM [employer] 04/29/2016 1:11 PM [employer] Walt Winters MD LAB - URINALYSIS O RDERABLES [facility] [address] [place] [address] * CARDIAC RHYTHM STRIP ORDER (03/24/2016 8:08 PM [employer]) Narrative 03/24/2016 8:08 PM [employer] Ordered by an unspecified provider. Scanned Document CARDIAC SERVICES ORD ERABLES * GROSS + MICRO EXAM (STL) (03/21/2016 4:38 PM [employer]MEMBER) Case Report Surgical Pathology Report Case: [id number] Authorizing Provider: Onel Nolasco MD Collected: 03/21/2016 04:38 PM Ordering Location: [facility] Received: 03/21/2016 04:44 PM Pathologist: Nickie Brooks MD Specimen: Ovary with Tube, left ovary 03/24/2016 1:23 PM [employer] [facility] Final Diagnosis 1. Left ovary, resection: -- Ovarian fibroma MC/na 03/24/2016 1:23 PM [employer]BER [facility] Frozen Section FSA1: left ovary 03/24/2016 1:23 PM [employer] [facility] Gross Description The specimen is received fresh in one container for frozen section diagnosis and intraoperative consult labeled with the patient's name, Liseth Jones, and ovary and is an ovary weighing 224 grams and measuring 8.4 x 7.3 x 7.3 cm. The serosal surface is hzknk-urvz-owrarw, smooth without papillary projections. The ovary is serially sectioned revealing homogeneous white-pink cut surface with focal areas of cystic dilatation. A insurance representative section is submitted as FSA1. Sections are submitted as follows: A1: Frozen section remnant A2-A7: Further insurance representative sections of the ovary PW/algloria 03/24/2016 1:23 PM [facility] Microscopic Description Sections reveal an ovary with a fibroma composed of spindled cells with areas of degeneration and edema. However alternating hypocellular and hypercellular areas and prominent vascularity are not identified. Therefore this is a fibroma not a sclerosing stromal tumor. No evidence of malignancy is identified. MC/na 03/24/2016 1:23 PM [facility] Disclaimer All histochemical and/or immunohistochemical results are interpreted with controls that demonstrate appropriate staining reactions before reporting results. Note on use of immunocytochemistry reagents: This test was developed and its performance characteristic determined by [facility], Department of Laboratory Medicine. It has not been cleared or approved by the U.S. Food and Drug Administration (FDA). The FDA has determined that such clearance or approval is not necessary. The test is used for clinical purpose. It should not be regarded as investigational or for research. This laboratory is certified to perform high complexity testing. 03/24/2016 1:23 PM [facility] Embedded Images 03/24/2016 1:23 PM [facility] Pathology/Cytolo gy FALLOPIAN TUBE AND OVARY, CS / Unknown 03/21/2016 4:38 PM [employer] 03/21/2016 4:44 PM [employer] Onel Nolasco MD LAB - PATHOLOGY/CYT OLOGY ORDERABLES Performing Organization Address City/[facility]/ZIP Co de Phone Number [facility] [address] [place] [address] * TYPE + SCREEN PANEL (03/21/2016 3:03 PM [employer]MEMBER) ABO O 03/21/2016 3:37 PM [facility] Rh Type Positive 03/21/2016 3:37 PM [facility] Comment:History check perfor med. No retype required. Antibody Screen Negative 03/21/2016 3:37 PM [facility] BLOOD [facility] Blood Bank BLOOD SPECIMEN / Unknown 03/21/2016 3:03 PM [employer] 03/21/2016 3:03 PM [employer] Helena Rubi MD LAB - BLOOD BANK ORD ERABLES [facility] [address] [place] [address] * BLOOD TYPE VERIFICATION (03/21/2016 10:56 AM [employer]MEMBER) ABO O 03/21/2016 11:57 AM [employer] [facility] Rh Type Positive 03/21/2016 11:57 AM [employer]BER [facility] BLOOD [facility] Blood Bank BLOOD SPECIMEN / Unknown 03/21/2016 10:56 AM [employer]BER 03/21/2016 10:56 AM [employer] Onel Nolasco MD LAB - BLOOD BANK OR DERABLES Performing Organization Address [facility] Co de Phone Number [facility] [address] [place] [address] * (ABNORMAL) URINALYSIS MICROSCOPIC ONLY (03/11/2016 4:07 PM [employer]MEMBER) Epithelial Cell UA 5-10(A) 0-2, 2-5 # /hpf 03/11/2016 5:16 PM [employer] [facility] Hyaline Casts 0-2 0 - 2 # /lpf 03/11/2016 5:16 PM [employer]BER [facility] Urine URINE SPECIMEN OBTAINED BY CLEAN CATCH PROCEDURE / Unknown Collection / Unknown 03/11/2016 4:07 PM [employer]BER 03/11/2016 4:07 PM [employer]BER Onel Nolasco MD LAB - URINALYSIS OR DERABLES Performing Organization Address [facility] Co de Phone Number [facility] [address] [place] [address] * XR CHEST PA AND LATERAL (03/11/2016 3:39 PM [employer]WMEMBER) Anatomical Region Laterality Modality Chest Radiographic Karina ging 03/11/2016 3:51 PM [employer]BER Narrative 03/11/2016 3:52 PM [employer]BER Exam: PA and lateral views of the [...] * CA 125 BLOOD (03/11/2016 3:08 PM BRADLEY LINEBACKER CREWMEMBER) Pathologist [facility] CA 125 27.1 0.0 - 38.1 U/mL 03/13/2016 5:12 AM BR[employer]LEY [employer]ER CREWMEMBER [facility] ([facility]) Comment:Marty ECLIA methodol ogy Blood BLOOD SPECIMEN / Unknown Lab Venipuncture / Unknown 03/11/2016 3:08 PM [employer]MEMBER 03/11/2016 3:08 PM [employer] CRE[employer]MEMBER Narrative [facility] ([facility]) - 03/13/2016 5:12 AM BR[employer]LEY [employer]BACKER CREWMEMBER Performed at: [facility] [id number] Hot Stick Man: Javier Tcuker PhD, Phone: [phone] Onel Nolasco MD LAB - CHEMISTRY ORD ERABLES [facility] ([facility]) [address] [place] [address] * (ABNORMAL) CBC W AUTO DIFFERENTIAL (03/11/2016 3:08 PM BRADLEY LINE[employer]ER CREWMEMBER) Pathologist [facility] WBC 7.2 4.4 - 10.7 x10E9/L 03/11/2016 3:30 PM [employer]ER CREWMEMBER [facility] WBC Corrected x10E9/L 03/11/2016 3:30 PM BR[employer]ER [employer]WMEMBER [facility] RBC 4.68 3.80 - 5.20 x10E12/L 03/11/2016 3:30 PM [facility] Hemoglobin 16.3(H) 12.0 - 15.6 gm/dL 03/11/2016 3:30 PM [facility] Hematocrit 46.2(H) 35.9 - 45.5 % 03/11/2016 3:30 PM [facility] MCV 98.7(H) 80.7 - 98.3 fl 03/11/2016 3:30 PM [facility] MCH 34.8(H) 26.7 - 34.0 pg 03/11/2016 3:30 PM [facility] MCHC 35.3 30.8 - 35.9 gm/dL 03/11/2016 3:30 PM [facility] Platelet Count 268 153 - 416 x10E9/L 03/11/2016 3:30 PM [facility] RDW-CV 13.7 12.1 - 14.9 % 03/11/2016 3:30 PM [facility] MPV 9.6 9.4 - 12.9 fl 03/11/2016 3:30 PM [facility] Neutrophils % 56.8 44.0 - 73.0 % 03/11/2016 3:30 PM [facility] Lymphocytes % 33.6 20.0 - 43.0 % 03/11/2016 3:30 PM [facility] Monocytes % 7.6 5.0 - 13.0 % 03/11/2016 3:30 PM [facility] Eosinophils % 1.0 0.0 - 6.0 % 03/11/2016 3:30 PM [facility] Basophils % 0.7 0.0 - 2.0 % 03/11/2016 3:30 PM [facility] Immature Granulocytes 0.3 0 - 1 % 03/11/2016 3:30 PM [facility] Neutrophil Absolute 4.12 2.01 - 7.14 x10E9/L 03/11/2016 3:30 PM [facility] Lymphocytes Absolute 2.43 1.07 - 3.94 x10E9/L 03/11/2016 3:30 PM [facility] Monocytes Absolute 0.55 0.26 - 1.07 x10E9/L 03/11/2016 3:30 PM [facility] Eosinophils Absolute 0.07 0 - 0.47 x10E9/L 03/11/2016 3:30 PM [facility] Basophils Absolute 0.05 0 - 0.08 x10E9/L 03/11/2016 3:30 PM [facility] Immature Granulocytes Absolute 0.02 0.00 - 0.06 x10E9/L 03/11/2016 3:30 PM [facility] nRBC Auto 0 /100 WBC 03/11/2016 3:30 PM [facility] Blood BLOOD SPECIMEN / Unknown Lab Venipuncture / Unknown 03/11/2016 3:08 PM [employer]BER 03/11/2016 3:08 PM [facility] Narrative Authorizing Provider Result Dot Nolasco MD LAB - HEMATOLOGY OR DERABLES [facility] [address] [place] [address] * (ABNORMAL) COMPREHENSIVE METABOLIC PANEL (03/11/2016 3:08 PM [facility]) [facility] Glucose 104 74 - 106 mg/dL 03/11/2016 3:52 PM [facility] Sodium 141 136 - 145 mmol/L 03/11/2016 3:52 PM [facility] Potassium 4.5 3.5 - 5.1 mmol/L 03/11/2016 3:52 PM [facility] Chloride 105 98 - 107 mmol/L 03/11/2016 3:52 PM [facility] CO2 31 22 - 31 mmol/L 03/11/2016 3:52 PM [facility] Calcium 8.7 8.5 - 10.1 mg/dL 03/11/2016 3:52 PM [facility] Anion Gap 5(L) 8 - 16 mmol/L 03/11/2016 3:52 PM [facility] BUN 15 7 - 21 mg/dL 03/11/2016 3:52 PM [facility] Creatinine 0.97 0.50 - 1.30 mg/dL 03/11/2016 3:52 PM [facility] Alkaline Phosphatase 84 38 - 126 U/L 03/11/2016 3:52 PM [facility] ALT 23 13 - 61 U/L 03/11/2016 3:52 PM [facility] AST 19 5 - 40 U/L 03/11/2016 3:52 PM [facility] Protein Total 7.1 6.4 - 8.2 gm/dL 03/11/2016 3:52 PM [facility] Albumin 3.6 3.4 - 5.0 gm/dL 03/11/2016 3:52 PM [facility] Bilirubin Total 0.5 0.2 - 1.0 mg/dL 03/11/2016 3:52 PM [facility] eGFR by MDRD 59(L) >60 mL/min/1.7 3m2 03/11/2016 3:52 PM [employer]BER [facility] eGFR by MDRD >60 >60 mL/min/1.7 3m2 03/11/2016 3:52 PM [employer]ER CREWMEMBER [facility] Blood BLOOD SPECIMEN / Unknown Lab Venipuncture / Unknown 03/11/2016 3:08 PM [employer]BER 03/11/2016 3:08 PM [employer]BER Onel Nolasco MD LAB - CHEMISTRY DHAVAL BEVERLY [facility] [address] [place] [address] * LAB HISTORICAL RESULTS-ONBASE (03/11/2016) Only the most recent of2 resultswithin the time period is included. 03/11/2016 Historical Provider LAB - CHEMISTRY Miranda [place] [id number] [address] Care Teams Dandy Tender Relationship Specialty Start Date End Date Anuj Choudhary MD [address] [facility] [address] [place] [address] PCP - General Family Medicine 03/11/16
== END 2024-04-25 11:11 | disposition home or self-care (01) ==
PROVIDERS: PCP Family Medicine; Visit Provider Internal Medicine Cardiovascular Disease
DX: I65.23 Occlusion and stenosis of bilateral carotid arteries (principal)
CPT/HCPCS: 93880

== ENCOUNTER 2024-05-03 14:30 | Outpatient (CLI) | payer MEDICARE, SELFPAY | END 2024-05-03 14:31 | disposition home or self-care (01) | PROVIDERS: PCP Family Medicine; Visit Provider Internal Medicine Cardiovascular Disease | DX: R06.00 Dyspnea, unspecified (principal) | CPT/HCPCS: 93306 ==

== ENCOUNTER 2024-05-18 07:07 | Outpatient (CLI) | payer MEDICARE, SELFPAY ==
--- NOTE | ~2024-05-18 | MR_ITS ---
MRI of the brain and orbits Clinical History: Sudden vision loss Technique: Axial and sagittal T1-weighted images were acquired. These were followed by axial T2-weigh gemma, diffusion weighted, gradient, and FLAIR images. Findings: There is no acute infarct, intracranial hemorrhage or mass lesion. There are mild to modera te chronic white matter changes in the periventricular white matter bilaterally. Ventricles and subarachnoid spaces are unremarkable. Paranasal sinuses and mastoid air cells are francisco j r. Major intracranial flow voids are intact. No intraorbital mass identified. Extraocular muscles are unremarkable. Optic nerve sheath complexes a re unremarkable. Optic chiasm unremarkable. Sagittal midline structures are intact. IMPRESSION: No acute infarct, intracranial hemorrhage or mass lesion. No significant abnormality of the orbits. Mild to moderate chronic microvascular ischemic change. Reviewed, dictated and finalized at [facility].
--- NOTE | ~2024-05-18 | US_ITS ---
Limited Abdominal Sonogram: Real-time sonographic imaging of the right upper quadrant was performed. Clinical History: Abnormal serum enzyme levels Findings: The liver appears normal with no evidence of mass lesion or bile duct dilatation. Main por regina vein demonstrates normal direction of flow. The gallbladder is well distended, and appears normal with no evidence of gallstone or wall thickening. The common bile duct measures 2 mm. The visualize d pancreas, aorta, and IVC are unremarkable. Impression: No significant abnormality seen. Reviewed, dictated and finalized at location M. Impression: No significant abnormality seen.
--- OUTSIDE RECORDS SUMMARY | 2024-05-18 07:12 | XMS_ITS | Clinical Summary ---
Author Organization [facility] Allan Isbell Address [address] [place] [address] Care Team Providers Care Parer Name Role Phone Wander Velasquez MD Primary Care Provider [phone] Allergies Active Allergy Reactions Criticality Noted Date [...] Encounters Date Type Department Care Team Description 05/11/2024 External Device Data STL ABSTRACTION Provider, Abstract 05/10/2024 External Device Data STL ABSTRACTION Provider, Abstract 05/07/2024 External Device Data STL ABSTRACTION Provider, Abstract 05/07/2024 External Device Data STL ABSTRACTION Provider, Abstract 05/06/2024 Orders Only [facility] Oncology [facility] Hematology - [place] [address] [place] [address] Ethan Santos MD 05/04/2024 External Device Data STL ABSTRACTION Provider, Abstract 04/20/2024 External Device Data STL ABSTRACTION Provider, Abstract 04/04/2024 11:00 AM FORESTRY BIOLOGY SPECIALIST Office Visit [facility] On[facility] Hematology - [place] [address] [place] [address] Ethan Santos MD Polycythemia, secondary (Primary Dx) 03/30/2024 External Device Data STL ABSTRACTION Provider, Abstract 03/25/2024 Orders Only [facility] Oncology [facility] Hematology - [place] [address] [place] [address] Ethan Satnos MD 03/24/2024 External Device Data STL ABSTRACTION Provider, Abstract 03/22/2024 Orders Only [facility] Oncology [facility] Hematology - [place] [address] [place] [address] Ethan Santos MD 03/16/2024 Orders Only [facility] Oncology [facility] Hematology - [place] [address] [place] [address] Ethan Santos MD 03/15/2024 External Device Data STL ABSTRACTION Provider, Abstract 03/15/2024 Abstract [facility] Oncology [facility] Hematology - [place] [address] [place] [address] Chaya Thacker 03/15/2024 Orders Only [facility] Oncology [facility] Hematology - [place] [address] [place] [address] Ethan Santos MD Anemia associated with nutritional deficiency (Primary Dx) 03/15/2024 Telephone [facility] Oncology [facility] Hematology - [place] [address] [place] [address] Ethan Santos MD Lab Results 03/04/2024 10:30 AM FORESTRY BIOLOGY SPECIALIST Office Visit [facility] Oncology and Hematology [place] [address] [place] [address] Nadeen Burrell MD Polycythemia, secondary (Primary Dx) [...] Date Smoking Tobacco: Every Day Cigarettes 0.5 51.2 Started: 1972 Smokeless Tobacco: Never Tobacco Cessation:Ready to Q uit: Not Asked; Counseling Given: Not Answered Alcohol Use Standard Drinks/Week Comments Never 0 (1 standard drink = 0.6 oz pur e alcohol) Comments Unknown Sex and Gender Information Value Date Recorded Sex Assigned at Not on file Legal Sex Female 11:21 AM FORESTRY BIOLOGY SPECIALIST Gender Identity Not on file Sexual Orientation Not on file Last Filed Vital Signs Vital Sign Reading Time Taken Comments Blood Pressure 112/58 04/04/2024 10:52 AM FORESTRY BIOLOGY SPECIALIST Pulse 65 04/04/2024 10:52 AM FORESTRY BIOLOGY SPECIALIST Temperature 36.2 C (97.1 F) 04/04/2024 10:52 AM FORESTRY BIOLOGY SPECIALIST Respiratory Rate 16 04/04/2024 10:52 AM FORESTRY BIOLOGY SPECIALIST Oxygen Saturation 94% 04/04/2024 10:52 AM FORESTRY BIOLOGY SPECIALIST Inhaled Oxygen Concentration - - Weight 86.6 kg (191 lb) 04/04/2024 10:52 AM FORESTRY BIOLOGY SPECIALIST Height 165.1 cm (5' 5 ) 03/04/2024 10:29 AM FORESTRY BIOLOGY SPECIALIST Body Mass Index 31.78 03/04/2024 10:29 AM FORESTRY BIOLOGY SPECIALIST Plan of Treatment Upcoming Encounters Date Type Department Care Team (Late st Contact Info) Description 07/08/2024 9:15 AM CDT Office Visit [facility] Oncology and Hematology - [place] [address] [place] [address] Ethan Santos MD [address] [facility] [address] [place] [address] Health Maintenance Due Date Last Done Comments Pre-Diabetes and Diabetes Screening 1955 DTAP/TDAP/TD VACCINES (1 - Tdap) 11/25/1975 PNEUMOCOCCAL VACCINE 50+ YEARS (1 of 2 - PCV) 11/24/18 [...] Procedure Name Priority Date/Time Associated Diagnosis Comments CBC WITH AUTODIFFERENTIAL Routine 2024 9:21 AM FORESTRY BIOLOGY SPECIALIST JAK2 MUTATION Routine 03/23/2024 12:53 PM FORESTRY BIOLOGY SPECIALIST COMPREHENSIVE METABOLIC PANEL Routine 03/15/2024 3:43 PM FORESTRY BIOLOGY SPECIALIST CBC WITH DIFFERENTIAL Routine 03/15/2024 3:32 PM FORESTRY BIOLOGY SPECIALIST ERYTHROPOIETIN LEVEL Routine 03/15/2024 12:00 PM FORESTRY BIOLOGY SPECIALIST IRON LEVEL Routine 03/15/2024 11:14 AM FORESTRY BIOLOGY SPECIALIST from Last 3 Months Results * CBC WITH AUTODIFFERENTIAL (05/05/2024 9:21 AM FORESTRY BIOLOGY SPECIALIST) Blood Ethan Santos MD HEMATOLOGY ORDERABLES Final Res ult * JAK2 MUTATION (03/23/2024 12:53 PM FORESTRY BIOLOGY SPECIALIST) Blood BLOOD SPECIMEN / Unknown us Ethan Santos MD CHEMISTRY ORDERABLES Final Resu lt * COMPREHENSIVE METABOLIC PANEL (03/15/2024 3:43 PM FORESTRY BIOLOGY SPECIALIST) Blood us Ethan Santos MD CHEMISTRY ORDERABLES Final Resu lt * CBC WITH DIFFERENTIAL (03/15/2024 3:32 PM FORESTRY BIOLOGY SPECIALIST) Blood Ethan Santos MD HEMATOLOGY ORDERABLES Final Res ult * ERYTHROPOIETIN LEVEL (03/15/2024 12:00 PM FORESTRY BIOLOGY SPECIALIST) Blood tEhan Santos MD CHEMISTRY ORDERABLES Final Resu lt * IRON LEVEL (03/15/2024 11:14 AM FORESTRY BIOLOGY SPECIALIST) Blood Result [facility] Ethan Santos MD CHEMISTRY ORDERABLES Final Resu lt from Last 3 Months Insurance [facility] Care Teams Parer Relationship Specialty Start Date End Date Wander Velasquez MD [address] [place] [address] PCP - General Family Practice 03/04/24
--- OUTSIDE RECORDS SUMMARY | 2024-05-18 07:12 | XMS_ITS | Clinical Summary ---
Author Organization [facility] Address [address] [place] [address] Phone Care Team Providers Care Product Development Ecologist Name Role Phone Wander Joiner DO Unavailable [phone] Guilherme Felix MD Primary Care Provider [phone] Anuj Choudhary Unavailable Allergies Active Allergy Reactions Criticality Noted Date Comments Iron Rash 01/15/2016 Medications metFORMIN (GLUCOPHAGE) 500 MG Tablet Take 1 Tablet by mouth. 1 Active [place]-3 Fatty Acids (fish oil) 1200 MG Capsule [...] mouth. 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 Gender Identity Not on file Sexual Orientation [...] AM CDT Lab [facility] [address] [address] Lab, [facility] 08/05/2024 9:15 AM CDT Office Visit [facility] [address] [address] Wander Joiner, [address] [place] [address] Health Maintenance Due Date Last Done [...] to complete this topic Insurance [facility]IC[facility] Care Teams Product Development Ecologist Relationship Specialty Start Date End Date Guilherme Felix MD [address] [place] [address] [phone] PCP - General Family Medicine 08/12/22 Wander Joiner DO [address] [place] [phone] Consulting Physician Oncology 08/08/22 Anuj Choudhary [address] [place] [address] Family Medicine 08/12/22
--- OUTSIDE RECORDS SUMMARY | 2024-05-18 07:12 | XMS_ITS | Clinical Summary ---
Author Organization [facility] Address [address] [place] [address] Care Team Providers Care Bin Filler Name Role Phone Anuj Choudhary MD Primary Care Provider [phone] Source Comments [facility],non-owned Affiliates and Associated Physician Practices is amultiple site organization consisting of ambulatory clinics and hospital sitesin [place], [place], [place] and [place]. This disclosure is being madepursuant to the Care Everywhere program and may not contain all information available regarding this patient. 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 UNDERWRITER Height 165.1 cm (5' 5 ) 02/26/2018 8:06 AM COMMERCIAL REAL ESTATE UNDERWRITER Body Mass Index 35.11 02/26/2018 8:06 AM 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 Plan of Treatment Health Maintenance Due Date Last Done Comments BONE DENSITY TESTING 1955 COLOGUARD (AGES 45-75) - COL ON CA SCREENING [...] 2023 9, 12/02/2016, 10/31/2016 DEPRESSION SCREENING 03/02/2024 MEDICARE AWV CALENDAR YEAR 2024 Respiratory Syncytial Virus (RSV) Vaccine Pt: or [...] complete this topic MENINGOCOCCAL (Group B) VACCINE SHARED DECISION-MAKING Aged Out No longer eligible based on patient's age to complete this topic MENINGOCOCCAL GROUPS A/C/Y/W VACCINE Aged Out No longer eligible b ased on patient's age to complete this topic Advance Directives * Full Code (Latest Code Status on File) Date Activated Date Inactivated Comments 03/21/2016 6:54 PM 03/22/2016 3:04 PM Care Teams Bin Filler Relationship Specialty Start Date End Date Anuj Choudhary MD [address] [phone] PCP - General Family Medicine 03/11/16
--- OUTSIDE RECORDS SUMMARY | 2024-05-18 07:12 | XMS_ITS | Clinical Summary ---
Author Organization [facility] Address [facility] [place] [address] Care Team Providers Care Tornado Chaser Name Role Phone Anuj Choudhary MD Primary Care Provider [phone] Social History Tobacco Use Types Packs/Day Years [...] age to complete this topic Care Teams Tornado Chaser Relationship Specialty Start Date End Date Anuj Choudhary MD PCP - General 01/15/16
--- OUTSIDE RECORDS SUMMARY | 2024-05-18 07:12 | XMS_ITS | Continuity of Care Document ---
Author Organization [facility] Address [address] [facility] [place] [address] Phone Care Team Providers Care Checker Bakery Products Name Role Phone Anuj Choudhary MD Unavailable Unavailable Allergies, Adverse Reactions, Alerts Substance Reaction Status Criticality No Known Allergies Active No Inform ation Medications Medication Instructions Dosage Effective Dates (start - stop) Status Comments OneTouch Verio test strips use once per day - Active E11.9 Lancets,Thin use once per day - Active E11.9 lisinopril 2.5 mg tablet take 1 tablet by oral route every day 2.5 MG - Active Amaryl 1 mg tablet take 1 tablet by ora l route every day - Active Crestor 20 mg tablet take 1 tablet by or al route every day 20 MG - Active metformin 500 mg tablet take 1 tablet by oral route 2 times every day with morning and evening meals 500 MG - Active metoprolol tartrate 25 mg [...] Diagnoses Date Provider Providers Copied on Encounter [facility], [address], [place], [place], [address], [place] tel:[phone] [facility] No Information 3 Kenrick Leslie. [address], [place], [place], [address] , [place]. tel:[phone] [facility], [address], [place], [place], [address], [place] tel:[phone] [facility] No Information 2 Kenrick Leslie. [address], [place], [place], [address] , [place]. tel:[phone] OFFICE/OUTPA TIENT VISIT, [facility], [address], [place], [place], [address], [place] tel:[phone] [facility] sleep apnea1 (chief complaint) DM (chief complaint) phos1 (chief complaint) HTN (chief complaint) HyperlipidemiaEssen tial (primary) hypertensionType 2 diabetes mellitus without complicationsOther disorders of phosphorus metabolismSleep apnea 2 Kenrick Padilla [address], [place], [place], [address] , [place]. tel:[phone] Referring Provider: Anuj Choudhary [address], [place], [place], [address]. tel:[phone] OFFICE/OUTPA TIENT VISIT, [facility], [address], [place], [place], [address], [place] tel:[phone] [facility] HLP (chief complaint) DM (chief complaint) HTN (chief complaint) hematuria1 (chief complaint) sleep apnea1 (chief complaint) back pani1 (chief complaint) HyperlipidemiaType 2 diabetes mellitus without complicationsHematu riaEssential (primary) hypertensionLumbago with sciatica, right sideSecondary polycythemia Mar- 2 Kenrick Leslie. [address], [place], [place], [address] , [place]. tel:[phone] Referring Provider: Zen Pollard [address], [place], [place], [address]. tel:[phone] OFFICE/OUTPA TIENT VISIT, EST [facility], [address], [place], [place], [address], [place] tel:[phone] [facility] hematuria1 (chief complaint) polycythem ia1 (chief complaint) DM (chief complaint) HLP (chief complaint) Secondary polycythemiaHyperli pidemiaType 2 diabetes mellitus without complicationsHematu riaDermatophytosis of nail Jan- 1 Kenrick Leslie. [address], [place], [place], [address] , [place]. tel:[phone] Referring Provider: Zen Pollard [address], [place], [place], [address]. tel:[phone] PREV VISIT, EST, AGE 40-64 [facility], [address], [place], [place], [address], [place] tel:[phone] [facility] physical (chief complaint) Encounter for general adult medical examination without abnormal findings 1 Kenrick Leslie. [address], [place], [place], [address] , [place]. tel:[phone] Referring Provider: Zen Pollard [address], [place], [place], [address]. tel:[phone] OFFICE/OUTPA TIENT VISIT, EST [facility], [address], [place], [address], [place] tel:[phone] [facility] lymph node1 (chief complaint) HTN (chief complaint) HLP (chief complaint) Essential (primary) hypertensionSeconda ry polycythemiaTobacco useHyperlipidemiaLy mphadenopathyEncoun ter for oth screening for malignant neoplasm of breastHyperglycemia 1 Kenrick Leslie. [address], [place], [place], [address] , [place]. tel:[phone] Referring Provider: Zen Pollard [address], [place], [place], [address]. tel:[phone] PREV VISIT, EST, AGE 40-64 [facility], [address], [place], [place], [address], [place] tel:[phone] [facility] PHysical (chief complaint) Encntr for general adult medical exam w/o abnormal findings 0 Kenrick Leslie. [address], [place], [place], [address] , [place]. tel:[phone] Referring Provider: Zen Pollard [address], [place], [place], [address]. tel:[phone] OFFICE/OUTPA TIENT VISIT, EST [facility], [address], [place], [place], [address], [place] tel:[phone] [facility] HTN (chief complaint) hearing loss1 (chief complaint) fatty liver1 (chief complaint) hematuria1 (chief complaint) HematuriaEssential (primary) hypertensionFatty liverUmbilical herniaHearing loss 9 Kenrick Leslie. [address], [place], [place], [address] , [place]. tel:[phone] Referring Provider: Zen Pollard [address], [place], [place], [address]. tel:[phone] OFFICE/OUTPA TIENT VISIT, EST [facility], [address], [place], [place], [address], [place] tel:[phone] [facility] HLp (chief complaint) polycythmi a1 (chief complaint) low D (chief complaint) hematuria1 (chief complaint) hearing loss1 (chief complaint) Body mass index (BMI) 34.0-34.9, adultHematuriaEssen tial (primary) hypertensionSeconda ry polycythemiaHearing lossTobacco useHyperlipidemia 8 Kenrick Leslie. [address], [place], [place], [address] , [place]. [phone] Referring Provider: Zen Pollard [address], [place], [place], [address]. tel:[phone] PREV VISIT, EST, AGE 40-64 [facility], [address], [place], [place], [address], [place] tel:[phone] [facility] PHysical (chief complaint) Encounter for general adult medical exam w abnormal findingsHyperlipide miaEssential (primary) hypertensionHematur iaCoronary artery disease of cachil dehe coronary artery without angina pectoris 8 Kenrick Leslie. [address], [place], [place], [address] , [place]. [phone] Referring Provider: Zen Pollard [address], [place], [place], [address]. tel:[phone] OFFICE/OUTPA TIENT VISIT, [facility], [address], [place], [place], [address], [place] tel:[phone] [facility] HTN (chief complaint) hematuria1 (chief complaint) HLP (chief complaint) tobacco1 (chief complaint) skin1 (chief complaint) Essential (primary) hypertensionHyperli pidemiaNevus, non-neoplasticHemat uria 7 Kenrick Leslie. [address], [place], [place], [address] , [place]. [phone] Referring Provider: Zen Poll[address], [place], [place], [address]. tel:[phone] OFFICE/OUTPA TIENT VISIT, EST [facility], [address], [place], [place], [address], [place] tel:[phone] [facility] tobacco1 (chief complaint) hematuria1 (chief complaint) HLP (chief complaint) HTN (chief complaint) Essential (primary) hypertensionTobacco useHyperlipidemiaHe maturia 7 Kenrick Leslie. [address], [place], [place], [address] , [place]. [phone] Referring Provider: Zen Pollard [address], [place], [place], [address]. tel:[phone] OFFICE/OUTPA TIENT VISIT, [facility], [address], [place], [place], [address], [place] tel:[phone] [facility] hematuria1 (chief complaint) knee pain1 (chief complaint) HTN (chief complaint) HLP (chief complaint) HematuriaPain in right kneeHyperlipidemiaE ssential (primary) hypertension 6 Kenrick Leslie. [address], [place], [place], [address] , [place]. [phone] Referring Provider: Zen Pollard [address], [place], [place], [address]. tel:[phone] OFFICE/OUTPA TIENT VISIT, [facility], [address], [place], [address], [place] [phone] [facility] hematuria1 (chief complaint) polycyther mia1 (chief complaint) HTN (chief complaint) knee pian1 (chief complaint) HematuriaSecondary polycythemiaEssenti al (primary) hypertensionBody mass index (BMI) 35.0-35.9, adult Jan- 6 Kenrick Leslie. [address], [place], [place], [address] , [place]. [phone] Referring Provider: Zen Pollard [address], [place], [place], [address]. tel:[phone] OFFICE/OUTPA TIENT VISIT, [facility], [address], [place], [address], [place] tel:[phone] [facility] HLP (chief complaint) polycyther mia1 (chief complaint) hematuria1 (chief complaint) HyperlipidemiaSecon delfina polycythemiaHematur iaVitamin D deficiency, unspecified 6 Kenrick Leslie. [address], [place], [address] , [place]. tel:[phone] Referring Provider: Anuj Choudhary [address] [facility] [address], [place], [place], [address]. tel:[phone] PREV VISIT, NEW, AGE 40-64 [facility], [address], [place], [place], [address], [place] tel:[phone] [facility] Physical (chief complaint) Encounter for general adult medical exam w abnormal findingsEssential (primary) hypertensionHyperli pidemia 6 Kenrick Leslie. [address], [place], [place], [address] , [place]. tel:[phone] Referring Provider: Zen Pollard [facility] [address], [place], [place], [address]. tel:[phone] Family History Family Member Type Diagnosis Age At Onset Father Problem (finding) of murder Father Problem (finding) Mother Problem (finding) of drug OD Sister Problem (finding) Diabetes mellitus type 2 Mother Problem (finding) Payers Payer name Insurance type Covered republican [...] -Podiatric Medicine & Surgery Service Providers : Parking Lot Laborer (related to Dermatophytosis of nail) ordered Referral Ordered: Occupational Therapy (related to Type 2 diabetes mellitus without complications) ordered Referral Referred To: Occupational Therapy Ordered: Referrals: Occupational Therapy. Evaluate and treat ordered Referral Referred To: TIAGO HARRIS [address] [facility] [place], [place], [phone] Ordered: Referrals: Podiatric Medicine & Surgery Service Providers : Parking Lot Laborer. TIAGO HARRIS. 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 [place], [place] [phone] Ordered: Referrals: Allopathic & Osteopathic Physicians : Internal Medicine : Cardiovascular Disease. Vincenzo Grier. Evaluate and treat ordered Referral Referred To: Marc Bailey [address] [place], [phone] Ordered: Referrals: Allopathic & Osteopathic Physicians : Urology. Marc Bailey. Evaluate and treat ordered Referral Ordered: DXA BONE DENSITY, AXIAL ordered Referral Ordered: Itz Cameron (related to Nevus, non-neoplastic) ordered Referral Referred To: Itz Cameron [address] [place], [phone] Ordered: Referrals: Itz Cameron. Evaluate and treat ordered Referral Ordered: CT THORAX W/O DYE ordered Referral Ordered: Onel Nolasco (related to Hematuria) ordered Referral Ordered: Marc Bailey (related to Hematuria) ordered Referral Referred To: Marc Bailey [address] [place], [phone] Ordered: Referrals: Marc Bailey. Evaluate and treat ordered Referral Ordered: US, PELVIC (NONOBSTETRIC); ordered Referral Referred To: Onel Nolasco [address] [facility]
[address] [place], [phone] Ordered: Referrals: Onel Nolasco. Evaluate and treat ordered Referral Ordered: CT ABDOMEN&PELVIS W/CONTRAST ordered Referral Ordered: KNEE XRAY TWO-VIEW Right ordered Referral Ordered: Hematology (related to Secondary polycythemia) ordered Referral Ordered: Referrals: Hematology. Evaluate and treat ordered Referral Ordered: Vincenzo Grier (related to Hyperlipidemia) ordered Referral Ordered: MAMMOGRAM, SCREENING ordered Referral Referred To: Vincenzo Grier [address] [place], [phone] Ordered: Referrals: Vincenzo Grier. 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 [...] has chronic hematuria Pt sees urology at [facility] ,Pt had negative CT scan and cysto, [...] removed recently. 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 Pt denies any UTI symptoms Pt [...]
--- OUTSIDE RECORDS SUMMARY | 2024-05-18 07:12 | XMS_ITS | Continuity of Care Document ---
Author Organization [facility] Address [address] [place] [address] [address] [place] [address] Phone Care Team Providers Care Guest Experience Manager Name Role Phone Brown OD, Agapito Unavailable Unavailable Procedures Procedure Date Office/outpatient Visit, Est Office/outpatient Visit, Est Advance Directives Directive Yes / No Effective Date File Name No Information Encounters Encounter Description Practice Location Reason(s) For Visit Diagnoses Date Provider Providers Copied on Encounter Office/outpat ient Visit, [facility], [address] [place] [address] [address], [place], [place], [id number], tel:[phone] [facility] No Information 3-200 7 Brown OD Agapito. [address] , [address], [place], [place], [facility], . tel:[phone] Office/outpat ient Visit, [facility], [address] [place] [address] [address], [place], [place], [id number], tel:[phone] [facility] No Information 6-200 7 Brown OD Agapito. [address] , [address], [place], [address], [place]. tel:[phone] Referring Provider: Low Bui MD , [address] [facility] [address], [place], [address]. tel:[phone] Family History Family Member Type Diagnosis Age [...]
== END 2024-05-18 07:08 | disposition home or self-care (01) ==
LOC: ANHIMG 07:09
PROVIDERS: PCP Family Medicine; Visit Provider Family Medicine
DX: I67.82 Cerebral ischemia (principal); R74.8 Abnormal levels of other serum enzymes
CPT/HCPCS: 70551; 76705

== ENCOUNTER 2024-05-27 09:14 | Outpatient (CLI) | payer MEDICARE, SELFPAY ==
--- OUTSIDE RECORDS SUMMARY | 2024-05-27 09:46 | XMS_ITS | Clinical Summary ---
Author Organization [facility] Address [address] [place] [address] Phone Care Team Providers Care Word Processor Operator Name Role Phone Wander Joiner DO Unavailable [phone] Guilherme Felix MD Primary Care Provider [phone] Anuj Choudhary Unavailable Allergies Active Allergy Reactions Criticality Noted Date Comments Iron Rash 01/15/2016 Medications metFORMIN (GLUCOPHAGE) 500 MG Tablet Take 1 Tablet by mouth. 1 Active [place]-3 Fatty Acids (fish oil) 1200 MG Capsule [...] mouth. 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 Gender Identity Not on file Sexual Orientation [...] AM CDT Lab [facility] [address] [address] Lab, [facility] 08/05/2024 9:15 AM CDT Office Visit [facility] [address] [address] Wander Joiner, [address] [place] [address] Health Maintenance Due Date Last Done [...] to complete this topic Insurance MEDICARE C [facility] Care Teams Word Processor Operator Relationship Specialty Start Date End Date Guilherme Felix MD [address] [place] [address] [id number] PCP - General Family Medicine 08/12/22 Wander Joiner DO [address] [place] [id number] Consulting Physician Oncology 08/08/22 Anuj Choudhary [address] [place] [address] Family Medicine 08/12/22
--- OUTSIDE RECORDS SUMMARY | 2024-05-27 09:46 | XMS_ITS | Clinical Summary ---
Author Organization [facility] Address [address] [place] [address] Care Team Providers Care Housekeeping Room Inspector Name Role Phone Anuj Choudhary MD Primary Care Provider [phone] Source Comments [facility],non-owned Affiliates and Associated Physician Practices is amultiple site organization consisting of ambulatory clinics and hospital sitesin [place], [place], [place] and [place]. This disclosure is being madepursuant to the Care Everywhere program and may not contain all information available regarding this patient. 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
--- OUTSIDE RECORDS SUMMARY | 2024-05-27 09:46 | XMS_ITS | Clinical Summary ---
Author Organization [facility] Address [facility] [place] [address] Care Team Providers Care Roll Edge Machine Operator Name Role Phone Anuj Choudhary MD Primary Care Provider [phone] Social History Tobacco Use Types Packs/Day Years [...] age to complete this topic Care Teams Roll Edge Machine Operator Relationship Specialty Start Date End Date Anuj Choudhary MD PCP - General 01/15/16
--- OUTSIDE RECORDS SUMMARY | 2024-05-27 09:46 | XMS_ITS | Continuity of Care Document ---
Author Organization [facility] Address [address] [place] [address] [address] [place] [address] Phone Care Team Providers Care Grain Mixer Name Role Phone Brown OD, Agapito Unavailable Unavailable Procedures Procedure Date Office/outpatient Visit, Est Office/outpatient Visit, Est Advance Directives Directive Yes / No Effective Date File Name No Information Encounters Encounter Description Practice Location Reason(s) For Visit Diagnoses Date Provider Providers Copied on Encounter Office/outpat ient Visit, [facility], [address] [place] [address] [address], [place], [place], [id number], tel:[phone] [facility] No Information 3-200 7 Brown OD Agapito. [address] , [address], [place], [place], [facility], . tel:[phone] Office/outpat ient Visit, [facility], [address] [place] [address] [address], [place], [place], [id number], tel:[phone] [facility] No Information 6-200 7 Brown OD Agapito. [address] , [address], [place], [address], [place]. tel:[phone] Referring Provider: Low Bui MD , [address], [place], [address]. tel:[phone] Family History Family Member Type Diagnosis Age At Onset No Information Payers Payer name Insurance type Covered green [...]
--- OUTSIDE RECORDS SUMMARY | 2024-05-27 09:47 | XMS_ITS | Clinical Summary ---
Author Organization [facility] Allan Isbell Address [address] [facility] [address] Care Team Providers Care Rn Intensive Care Unit Name Role Phone Wander Velasquez MD Primary Care Provider [phone] Allergies Active Allergy Reactions Criticality Noted Date [...] Encounters Date Type Department Care Team Description 05/18/2024 External Device Data STL ABSTRACTION Provider, Abstract 05/11/2024 External Device Data STL ABSTRACTION Provider, Abstract 05/10/2024 External Device Data ST[facility] ABSTRACTION Provider, Abstract 05/07/2024 External Device Data STL ABSTRACTION Provider, Abstract 05/07/2024 External Device Data STL ABSTRACTION Provider, Abstract 05/06/2024 Orders Only [facility] [place] [address] [place] [id number] Ethan Santos MD 05/04/2024 External Device Data STL ABSTRACTION Provider, Abstract 04/20/2024 External Device Data STL ABSTRACTION Provider, Abstract 04/04/2024 11:00 AM ASSISTANT PASSENGER LOCOMOTIVE ENGINEER Office Visit [facility] [place] [address] [place] [id number] Ethan Santos MD Polycythemia, secondary (Primary Dx) 03/30/2024 External Device Data STL ABSTRACTION Provider, Abstract 03/25/2024 Orders Only [facility] [place] [address] [place] [phone] Ethan Santos MD 03/24/2024 External Device Data STL ABSTRACTION Provider, Abstract 03/22/2024 Orders Only [facility] [place] [address] [place] [phone] Ethan Santos MD 03/16/2024 Orders Only [facility] [place] [address] [place] [address] Ethan Santos MD 03/15/2024 External Device Data STL ABSTRACTION Provider, Abstract 03/15/2024 Abstract [facility] [place] [address] [place] [id number] Chaya Thacker 03/15/2024 Orders Only [facility] [place] [address] [place] [address] Ethan Santos MD Anemia associated with nutritional deficiency (Primary Dx) 03/15/2024 Telephone [facility] [place] [address] [place] [address] Ethan Santos MD Lab Results 03/04/2024 10:30 AM ASSISTANT PASSENGER LOCOMOTIVE ENGINEER Office Visit [facility] [address] [place] [address] [address] [place] [address] Nadeen Burrell MD Polycythemia, secondary [...] on file Legal Sex Female 11:21 AM ASSISTANT PASSENGER LOCOMOTIVE ENGINEER Gender Identity Not on file Sexual Orientation Not on file Last Filed Vital Signs Vital Sign Reading Time Taken Comments Blood Pressure 112/58 04/04/2024 10:52 AM ASSISTANT PASSENGER LOCOMOTIVE ENGINEER Pulse 65 04/04/2024 10:52 AM ASSISTANT PASSENGER LOCOMOTIVE ENGINEER Temperature 36.2 C (97.1 F) 04/04/2024 10:52 AM ASSISTANT PASSENGER LOCOMOTIVE ENGINEER Respiratory Rate 16 04/04/2024 10:52 AM ASSISTANT PASSENGER LOCOMOTIVE ENGINEER Oxygen Saturation 94% 04/04/2024 10:52 AM ASSISTANT PASSENGER LOCOMOTIVE ENGINEER Inhaled Oxygen Concentration - - Weight 86.6 kg (191 lb) 04/04/2024 10:52 AM ASSISTANT PASSENGER LOCOMOTIVE ENGINEER Height 165.1 cm (5' 5 ) 03/04/2024 10:29 AM ASSISTANT PASSENGER LOCOMOTIVE ENGINEER Body Mass Index 31.78 03/04/2024 10:29 AM ASSISTANT PASSENGER LOCOMOTIVE ENGINEER Plan of Treatment Upcoming Encounters Date Type Department Care Team (Late st Contact Info) Description 07/08/2024 9:15 AM CDT Office Visit [facility] [place] [address] [place] [address] Ethan Santos MD [address] [address] Health Maintenance Due Date Last Done [...] CBC WITH AUTODIFFERENTIAL Routine 2024 9:21 AM ASSISTANT PASSENGER LOCOMOTIVE ENGINEER JAK2 MUTATION Routine 03/23/2024 12:53 PM ASSISTANT PASSENGER LOCOMOTIVE ENGINEER COMPREHENSIVE METABOLIC PANEL Routine 03/15/2024 3:43 PM ASSISTANT PASSENGER LOCOMOTIVE ENGINEER CBC WITH DIFFERENTIAL Routine 03/15/2024 3:32 PM ASSISTANT PASSENGER LOCOMOTIVE ENGINEER ERYTHROPOIETIN LEVEL Routine 03/15/2024 12:00 PM ASSISTANT PASSENGER LOCOMOTIVE ENGINEER IRON LEVEL Routine 03/15/2024 11:14 AM ASSISTANT PASSENGER LOCOMOTIVE ENGINEER from Last 3 Months Results * CBC WITH AUTODIFFERENTIAL (05/05/2024 9:21 AM ASSISTANT PASSENGER LOCOMOTIVE ENGINEER) Blood Ethan Santos MD HEMATOLOGY ORDERABLES Final Res ult * JAK2 MUTATION (03/23/2024 12:53 PM ASSISTANT PASSENGER LOCOMOTIVE ENGINEER) Blood BLOOD SPECIMEN / Unknown Ethan Santos MD CHEMISTRY ORDERABLES Final Resu lt * COMPREHENSIVE METABOLIC PANEL (03/15/2024 3:43 PM ASSISTANT PASSENGER LOCOMOTIVE ENGINEER) Blood Ethan Santos MD CHEMISTRY ORDERABLES Final Resu lt * CBC WITH DIFFERENTIAL (03/15/2024 3:32 PM ASSISTANT PASSENGER LOCOMOTIVE ENGINEER) Blood Ethan Santos MD HEMATOLOGY ORDERABLES Final Res ult * ERYTHROPOIETIN LEVEL (03/15/2024 12:00 PM ASSISTANT PASSENGER LOCOMOTIVE ENGINEER) Blood Ethan Satnos MD CHEMISTRY ORDERABLES Final Resu lt * IRON LEVEL (03/15/2024 11:14 AM ASSISTANT PASSENGER LOCOMOTIVE ENGINEER) Blood Ethan Santos MD CHEMISTRY ORDERABLES Final Resu lt from Last 3 Months Insurance AENA O MCR Care Teams Rn Intensive Care Unit Relationship Specialty Start Date End Date Wander Velasquez MD [address] [place] [address] PCP - General Family Practice 03/04/24
--- OUTSIDE RECORDS SUMMARY | 2024-05-27 09:47 | XMS_ITS | Continuity of Care Document ---
Author Organization [facility] Address [address] [address] [place] [address] Phone Care Team Providers Care Dental Surgeon Name Role Phone Anuj Choudhary MD Unavailable [...] Diagnoses Date Provider Providers Copied on Encounter [facility], [address], [place], [place], [address], [place] tel:[phone] [facility] No Information 3 Kenrick Leslie. [address], [place], [place], [address] , [place]. tel:[phone] [facility], [address], [place], [place], [address], [place] tel:[phone] [facility] No Information 2 Kenrick Leslie. [address], [place], [place], [address] , [place]. tel:[phone] OFFICE/OUTPA TIENT VISIT, [facility], [address], [place], [place], [address], [place] tel:[phone] [facility] sleep apnea1 (chief complaint) DM (chief complaint) phos1 (chief complaint) HTN (chief complaint) HyperlipidemiaEssen tial (primary) hypertensionType 2 diabetes mellitus without complicationsOther disorders of phosphorus metabolismSleep apnea 2 Kenrick Padilla [address], [place], [place], [address] , [place]. tel:[phone] Referring Provider: Anuj Choudhary [address], [place], [place], [address]. tel:[phone] OFFICE/OUTPA TIENT VISIT, [facility], [address], [place], [place], [address], [place] tel:[phone] [facility] HLP (chief complaint) DM (chief complaint) HTN (chief complaint) hematuria1 (chief complaint) sleep apnea1 (chief complaint) back pani1 (chief complaint) HyperlipidemiaType 2 diabetes mellitus without complicationsHematu riaEssential (primary) hypertensionLumbago with sciatica, right sideSecondary polycythemia Mar- 2 Kenrick Leslie. [address], [place], [place], [address] , [place]. tel:[phone] Referring Provider: Zen Pollard [address], [place], [place], [address]. tel:[phone] OFFICE/OUTPA TIENT VISIT, EST [facility], [address], [place], [place], [address], [place] tel:[phone] [facility] hematuria1 (chief complaint) polycythem ia1 (chief complaint) DM (chief complaint) HLP (chief complaint) Secondary polycythemiaHyperli pidemiaType 2 diabetes mellitus without complicationsHematu riaDermatophytosis of nail Jan- 1 Kenrick Leslie. [address], [place], [place], [address] , [place]. tel:[phone] Referring Provider: Zen Pollard [address], [place], [place], [address]. tel:[phone] PREV VISIT, EST, AGE 40-64 [facility], [address], [place], [place], [address], [place] tel:[phone] [facility] physical (chief complaint) Encounter for general adult medical examination without abnormal findings 1 Kenrick Leslie. [address], [place], [place], [address] , [place]. tel:[phone] Referring Provider: Zen Pollard [address], [place], [place], [address]. tel:[phone] OFFICE/OUTPA TIENT VISIT, EST [facility], [address], [place], [place], [address], [place] tel:[phone] [facility] lymph node1 (chief complaint) HTN (chief complaint) HLP (chief complaint) Essential (primary) hypertensionSeconda ry polycythemiaTobacco useHyperlipidemiaLy mphadenopathyEncoun ter for oth screening for malignant neoplasm of breastHyperglycemia 1 Kenrick Leslie. [address], [place], [place], [address] , [place]. tel:[phone] Referring Provider: Zen Pollard [address], [place], [place], [address]. tel:[phone] PREV VISIT, EST, AGE 40-64 [facility], [address], [place], [place], [address], [place] tel:[phone] [facility] PHysical (chief complaint) Encntr for general adult medical exam w/o abnormal findings 0 Kenrick Leslie. [address], [place], [place], [address] , [place]. tel:[phone] Referring Provider: Zen Pollard [address], [place], [place], [address]. tel:[phone] OFFICE/OUTPA TIENT VISIT, EST [facility], [address], [place], [place], [address], [place] tel:[phone] [facility] HTN (chief complaint) hearing loss1 (chief complaint) fatty liver1 (chief complaint) hematuria1 (chief complaint) HematuriaEssential (primary) hypertensionFatty liverUmbilical herniaHearing loss 9 Kenrick Leslie. [address], [place], [place], [address] , [place]. tel:[phone] Referring Provider: Zen Pollard [address], [place], [place], [address]. tel:[phone] OFFICE/OUTPA TIENT VISIT, EST [facility], [address], [place], [place], [address], [place] tel:[phone] [facility] HLp (chief complaint) polycythmi a1 (chief complaint) low D (chief complaint) hematuria1 (chief complaint) hearing loss1 (chief complaint) Body mass index (BMI) 34.0-34.9, adultHematuriaEssen tial (primary) hypertensionSeconda ry polycythemiaHearing lossTobacco useHyperlipidemia 8 Kenrick Leslie. [address], [place], [place], [address] , [place]. [phone] Referring Provider: Zen Pollard [address], [place], [place], [address]. tel:[phone] PREV VISIT, EST, AGE 40-64 [facility], [address], [place], [place], [address], [place] tel:[phone] [facility] PHysical (chief complaint) Encounter for general adult medical exam w abnormal findingsHyperlipide miaEssential (primary) hypertensionHematur iaCoronary artery disease of [place] coronary artery without angina pectoris 8 Kenrick Leslie. [address], [place], [place], [address] , [place]. [phone] Referring Provider: Zen Pollard [address], [place], [place], [address]. tel:[phone] OFFICE/OUTPA TIENT VISIT, [facility], [address], [place], [place], [address], [place] tel:[phone] [facility] HTN (chief complaint) hematuria1 (chief complaint) HLP (chief complaint) tobacco1 (chief complaint) skin1 (chief complaint) Essential (primary) hypertensionHyperli pidemiaNevus, non-neoplasticHemat uria 7 Kenrick Leslie. [address], [place], [place], [address] , [place]. [phone] Referring Provider: Zen Poll[address], [place], [place], [address]. tel:[phone] OFFICE/OUTPA TIENT VISIT, EST [facility], [address], [place], [place], [address], [place] tel:[phone] [facility] tobacco1 (chief complaint) hematuria1 (chief complaint) HLP (chief complaint) HTN (chief complaint) Essential (primary) hypertensionTobacco useHyperlipidemiaHe maturia 7 Kenrick Leslie. [address], [place], [place], [address] , [place]. [phone] Referring Provider: Zen Pollard [address], [place], [place], [address]. tel:[phone] OFFICE/OUTPA TIENT VISIT, [facility], [address], [place], [place], [address], [place] tel:[phone] [facility] hematuria1 (chief complaint) knee pain1 (chief complaint) HTN (chief complaint) HLP (chief complaint) HematuriaPain in right kneeHyperlipidemiaE ssential (primary) hypertension 6 Kenrick Leslie. [address], [place], [place], [address] , [place]. tel:[phone] Referring Provider: Zen Pollard [address], [place], [place], [address]. tel:[phone] OFFICE/OUTPA TIENT VISIT, [facility], [address], [place], [place], [address], [place] [phone] [facility] hematuria1 (chief complaint) polycyther mia1 (chief complaint) HTN (chief complaint) knee pian1 (chief complaint) HematuriaSecondary polycythemiaEssenti al (primary) hypertensionBody mass index (BMI) 35.0-35.9, adult Jan- 6 Kenrick Leslie. [address], [place], [place], [address] , [place]. tel:[phone] Referring Provider: Zen Pollard [address], [place], [place], [address]. tel:[phone] OFFICE/OUTPA TIENT VISIT, [facility], [address], [place], [place], [address], [place] tel:[phone] [facility] HLP (chief complaint) polycyther mia1 (chief complaint) hematuria1 (chief complaint) HyperlipidemiaSecon delfina polycythemiaHematur iaVitamin D deficiency, unspecified 6 Kenrick Leslie. [address], [place], [place], [address] , [place]. tel:[phone] Referring Provider: Anuj Choudhary [address] [facility] [address], [place], [place], [address]. tel:[phone] PREV VISIT, NEW, AGE 40-64 [facility], [address], [place], [place], [address], [place] tel:[phone] [facility] Physical (chief complaint) Encounter for general adult medical exam w abnormal findingsEssential (primary) hypertensionHyperli pidemia 6 Kenrick Leslie. [address], [place], [place], [address] , [place]. tel:[phone] Referring Provider: Zen Pollard [facility] [address], [place], [place], [address]. tel:[phone] Family History Family Member Type Diagnosis Age [...] -Podiatric Medicine & Surgery Service Providers : Water Trainer (related to Dermatophytosis of nail) ordered Referral Ordered: Occupational Therapy (related to Type 2 diabetes mellitus without complications) ordered Referral Referred To: Occupational Therapy Ordered: Referrals: Occupational Therapy. Evaluate and treat ordered Referral Referred To: TIAGO HARRIS [address] [facility] [place], [place], [phone] Ordered: Referrals: Podiatric Medicine & Surgery Service Providers : Water Trainer. TIAGO HARRIS. 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 [place], [place] [phone] Ordered: Referrals: Allopathic & Osteopathic Physicians : Internal Medicine : Cardiovascular Disease. Vincenzo Grier. Evaluate and treat ordered Referral Referred To: Marc Bailey [address] [place], [phone] Ordered: Referrals: Allopathic & Osteopathic Physicians : Urology. Marc Bailey. Evaluate and treat ordered Referral Ordered: DXA BONE DENSITY, AXIAL ordered Referral Ordered: Itz Cameron (related to Nevus, non-neoplastic) ordered Referral Referred To: Itz Cameron [address] [place], [phone] Ordered: Referrals: Itz Cameron. Evaluate and treat ordered Referral Ordered: CT THORAX W/O DYE ordered Referral Ordered: Onel Nolasco (related to Hematuria) ordered Referral Ordered: Marc Bailey (related to Hematuria) ordered Referral Referred To: Marc Bailey [address] [place], [phone] Ordered: Referrals: Marc Bailey. Evaluate and treat ordered Referral Ordered: US, PELVIC (NONOBSTETRIC); ordered Referral Referred To: Onel Nolasco [address] [facility]
[address] [place], [phone] Ordered: Referrals: Onel Nolasco. Evaluate and treat ordered Referral Ordered: CT ABDOMEN&PELVIS W/CONTRAST ordered Referral Ordered: KNEE XRAY TWO-VIEW Right ordered Referral Ordered: Hematology (related to Secondary polycythemia) ordered Referral Ordered: Referrals: Hematology. Evaluate and treat ordered Referral Ordered: Vincenzo Grier (related to Hyperlipidemia) ordered Referral Ordered: MAMMOGRAM, SCREENING ordered Referral Referred To: Vincenzo Grier [address] [place], [phone] Ordered: Referrals: Vincenzo Grier. 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 [...] has chronic hematuria Pt sees urology at [facility] ,Pt had negative CT scan [...] removed recently. Pt was discharged from the [employer]/oncology office. Pt denies any UTI symptoms Pt [...] uria Weight management Related to Hem aturia Quit smoking Related to Encou nter for general adult medical exam w abnormal findings Special diet education Related t o Body mass index (BMI) 34.0-34.9, adult Prescribed Diet Educ ation/Lifestyle Education Regarding Diet [...]
[2024-05-27 10:07] LABS: CRP < 0.5 mg/dL (<1.0)
[2024-05-27 10:51] LABS: Erythrocyte Sedimentation Rate 5 mm/hr (0-20)
== END 2024-05-27 09:15 | disposition home or self-care (01) ==
LOC: ANHLAB 09:15
PROVIDERS: PCP Family Medicine; Visit Provider Family Medicine
DX: H53.139 Sudden visual loss, unspecified eye (principal)
CPT/HCPCS: 36415; 85652; 86140

== ENCOUNTER 2024-07-08 09:02 | Outpatient (CLI) | payer MEDICARE, SELFPAY ==
--- OUTSIDE RECORDS SUMMARY | 2024-07-08 09:09 | XMS_ITS | Clinical Summary ---
Author Organization [facility] Address [facility] [place] [address] Care Team Providers Care Service Counselor Name Role Phone Anuj Choudhary MD Primary Care Provider [phone] Social History Tobacco Use Types Packs/Day Years [...] 1 - Tdap) 11/25/1975 Mammogram Screening 1996 Pneumococcal Vaccine: 50+ Ye ars (1 of 1 - PCV) 2006 Zoster Vaccines (1 of 2) 2006 Dexa Scan (General) 2021 COVID-19 Vaccine (2023-2 5 season) 2023 RSV Immunization or 60+ Years (1 [...] age to complete this topic Care Teams Service Counselor Relationship Specialty Start Date End Date Anuj Choudhary MD PCP - General 01/15/16
--- OUTSIDE RECORDS SUMMARY | 2024-07-08 09:09 | XMS_ITS | Clinical Summary ---
Author Organization [facility] Address [address] [place] [address] Care Team Providers Care Garage Door Service Technician Name Role Phone Anuj Choudhary MD Primary Care Provider [phone] Source Comments [facility],non-owned Affiliates and Associated Physician Practices is amultiple site organization consisting of ambulatory clinics and hospital sitesin [place], [place], [place] and [place]. This disclosure is being madepursuant to the Care Everywhere program and may not contain all information available regarding this patient. Last updated 17.[facility] Allergies Active Allergy Reactions Criticality Noted Date Comments Iron Rash Medium 03/11/2016 Medications * Be aware that medications may not be up to date on this document. Alwaysverify current medications with the patient. metoprolol tartrate (LOPRESSOR) 25 MG tablet take 1 tablet by oral route 2 times every day 6 Active glimepiride (AMARYL) 1 MG tablet Take 1 tablet by mouth once daily 2 Active Blood Glucose Monitoring Suppl (ONE TOUCH ULTRA 2) w/Device KIT USE 1 TO CHECK GLUCOSE ONCE DAILY 1 Active ONETOUCH ULTRA test strip USE 1 STRIP TO CHECK GLUCOSE ONCE DAILY 1 Active Lancets (ONETOUCH DELICA PLUS 33G EXTRA FINE LANCET) USE 1 TO CHECK GLUCOSE TWICE DAILY NEEDED 2 Active lisinopril (PRINIVIL; ZESTRIL) 2.5 MG tablet Take 2.5 mg by mouth once daily 2 Active metFORMIN (GLUCOPHAGE) 500 MG tablet Take 1 tablet by mouth 1 Active rosuvastatin (CRESTOR) 20 MG tablet Take 1 tablet by mouth 1 Active [place]-3 Fatty Acids (FISH OIL) 1000 MG capsule Active APPLE CIDER VINEGAR PO Take 450 mg by mouth Active aspirin EC (ECOTRIN) 325 MG tablet Take 325 mg by mouth once daily Active acetaminophen (TYLENOL) 500 MG tablet Take 500 mg by mouth every 4 hours as needed for Fever or Pain Maximum allowable Acetaminophen amount = 4 Grams (4000 mg) / 24 hours. Active sulfamethoxazo le-trimethopri m (BACTRIM DS; SEPTRA DS) 800-160 MG tablet Take 1 (one) tablet by mouth 2 times daily 14 tablet 2 Active Immunizations Immunization Administration Dates Next Due INFLUENZA VACCINE 11/29/2018 Social History Tobacco Use Types Packs/Day Years Used Date Smoking Tobacco: Every Day Cigarettes Smokeless Tobacco: Never Tobacco Cessation:Ready to Q uit: No; Counseling Given: Yes Alcohol Use Standard Drinks/Week Comments No 0 (1 standard drink = 0.6 oz pur e alcohol) Comments No Sex and Gender Information Value Date Recorded Sex Assigned at Not on file Legal Sex Female 5:48 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 Gender Identity Not on file Sexual Orientation Not on file Last Filed Vital Signs Vital Sign Reading Time Taken Comments Blood Pressure 125/71 08/30/2021 10:02 AM CDT Pulse 72 08/30/2021 10:02 AM CDT Temperature 36.2 C (97.2 F) 03/03/2019 8:30 AM DREDGE WORKER Respiratory Rate 11 05/15/2016 2:45 PM CDT Oxygen Saturation 98% 08/30/2021 10:02 AM CDT Inhaled Oxygen Concentration - - Weight 95.7 kg (211 lb) 02/26/2018 8:06 AM DREDGE WORKER Height 165.1 cm (5' 5 ) 02/26/2018 8:06 AM DREDGE WORKER Body Mass Index 35.11 02/26/2018 8:06 AM DREDGE WORKER Plan of Treatment Health Maintenance Due Date [...] 2023-2 5 season) 2023 02/12/2021, 05/22/2020, 05/01/2020 DEPRESSION SCREENING 03/02/2024 MEDICARE AWV CALENDAR YEAR 2024 INFLUENZA VACCINE (Season Ended) 2024 11/29/2018, 12/02/2016, 10/31/2016 Respiratory Syncytial Virus (RSV) Vaccine Pt: or [...] patient's age to complete this topic Insurance [facility] AETNA MEDICARE ADV SELF PAY NO INSURANCE Member Subscriber Plan / Payer (Ef fective for All Dates) Name:Tawanna Jones Member ID:Not on file Relation to Subscriber:Not on file Name:TAWANNA JONES Subscriber ID:Not on file (Home) Address: [address] [place] [id number] Payer ID:Not on file Group ID:Not on file Type:Self Pay Address: [place], [place] MEDICAID - OUT OF STATE Advance Directives * Full Code (Latest Code Status on File) Date Activated Date Inactivated Comments 03/21/2016 6:54 PM 03/22/2016 3:04 PM Care Teams Garage Door Service Technician Relationship Specialty Start Date End Date Anuj Choudhary MD [address] [facility] [address] [place] [phone] PCP - General Family Medicine 03/11/16
--- OUTSIDE RECORDS SUMMARY | 2024-07-08 09:09 | XMS_ITS | Continuity of Care Document ---
Author Organization [facility] Address [address] [place] [address] [address] [place] [address] Phone Care Team Providers Care Balance Staff Inspector Name Role Phone Brown OD, Agapito Unavailable Unavailable Procedures Procedure Date Office/outpatient Visit, Est Office/outpatient Visit, Est Advance Directives Directive Yes / No Effective Date File Name No Information Encounters Encounter Description Practice Location Reason(s) For Visit Diagnoses Date Provider Providers Copied on Encounter Office/outpat ient Visit, [facility], [address] [place] [address] [address], [place], [place], [address], tel:[phone] [facility] No Information 3-200 7 Brown OD Agapito. [address], [place], [place], [facility], . tel:[phone] Office/outpat ient Visit, [facility], [address] [place] [address] [address], [place], [place], [address], tel:[phone] [facility] No Information 6-200 7 Brown OD Agapito. [address], [place], [address], [place]. tel:[phone] Referring Provider: Low Bui MD , [address] [facility] [address], [place], [address]. tel:[phone] Family History Family Member Type Diagnosis Age [...]
--- OUTSIDE RECORDS SUMMARY | 2024-07-08 09:09 | XMS_ITS | Clinical Summary ---
Author Organization [facility] Address [address] [place] [address] Care Team Providers Care Hvac Services Professional Name Role Phone Wander Velasquez MD Primary Care Provider [phone] Allergies Active Allergy Reactions Criticality Noted Date [...] STL ABSTRACTION Provider, Abstract 05/06/2024 Orders Only [facility] - [place] [address] [place] [address] Ethan Santos MD 05/04/2024 External Device Data STL ABSTRACTION Provider, Abstract 04/20/2024 External Device Data STL ABSTRACTION Provider, Abstract from Last 3 Months Family History Medical [...] Date Smoking Tobacco: Every Day Cigarettes 0.5 51.4 Started: 1972 Smokeless Tobacco: Never Tobacco Cessation:Ready to Q uit: Not Asked; Counseling Given: Not Answered Alcohol Use Standard Drinks/Week Comments Never 0 (1 standard drink = 0.6 oz pur e alcohol) Comments Unknown Sex and Gender Information Value Date Recorded Sex Assigned at Not on file Legal Sex Female 11:21 AM ADULT PROBATION OFFICER Gender Identity Not on file Sexual Orientation Not on file Last Filed Vital Signs Vital Sign Reading Time Taken Comments Blood Pressure 112/58 04/04/2024 10:52 AM ADULT PROBATION OFFICER Pulse 65 04/04/2024 10:52 AM ADULT PROBATION OFFICER Temperature 36.2 C (97.1 F) 04/04/2024 10:52 AM ADULT PROBATION OFFICER Respiratory Rate 16 04/04/2024 10:52 AM ADULT PROBATION OFFICER Oxygen Saturation 94% 04/04/2024 10:52 AM ADULT PROBATION OFFICER Inhaled Oxygen Concentration - - Weight 86.6 kg (191 lb) 04/04/2024 10:52 AM ADULT PROBATION OFFICER Height 165.1 cm (5' 5 ) 03/04/2024 10:29 AM ADULT PROBATION OFFICER Body Mass Index 31.78 03/04/2024 10:29 AM ADULT PROBATION OFFICER Plan of Treatment Upcoming Encounters Date Type Department Care Team (Late st Contact Info) Description 07/08/2024 9:15 AM CDT Office Visit [facility] - [place] [address] [place] [address] Ethan Santos MD [address] [facility] [address] [place] [address] Health Maintenance Due Date Last [...] SCREENING 2021 INFLUENZA VACCINE (#1) 2023 12/02/2016 [place] Prev entative Visit/Annual Wellness Visit 03/02/2024 RSV VACCINE (60+ or ) (1 - 1-dose 75+ series) 11/25/2031 Procedures Procedure Name Priority Date/Time Associated Diagnosis Comments CBC WITH AUTODIFFERENTIAL Routine 2024 9:21 AM ADULT PROBATION OFFICER from Last 3 Months Results * CBC WITH AUTODIFFERENTIAL (05/05/2024 9:21 AM ADULT PROBATION OFFICER) Blood Ethan Santos MD HEMATOLOGY ORDERABLES Final Res ult from Last 3 Months Insurance AETNA O [facility] Address: [facility] [id number] [phone] Care Teams Hvac Services Professional Relationship Specialty Start Date End Date Wander Velasquez MD [address] [place] [phone] PCP - General Family Practice 03/04/24
--- OUTSIDE RECORDS SUMMARY | 2024-07-08 09:09 | XMS_ITS | Continuity of Care Document ---
Author Organization [facility] Address [address] [place] [place] [address] Phone Care Team Providers Care Master Hearth Technician Name Role Phone Anuj Choudhary MD Unavailable [...] Diagnoses Date Provider Providers Copied on Encounter [facility], [place], [address], [place], [place], [address], [place] tel:[phone] [facility], [place] No Information 3 Kenrick Leslie. [address], [place], [place], [address] , [place]. tel:[phone] [facility], [place], [address], [place], [place], [address], [place] tel:[phone] [facility], [place] No Information 2 Kenrick Leslie. [address], [place], [place], [address] , [place]. tel:[phone] OFFICE/OUTPA TIENT VISIT, [facility], [address], [place], [place], [address], [place] tel:[phone] [facility] [place] sleep apnea1 (chief complaint) DM (chief complaint) phos1 (chief complaint) HTN (chief complaint) HyperlipidemiaEssen tial (primary) hypertensionType 2 diabetes mellitus without complicationsOther disorders of phosphorus metabolismSleep apnea 2 Kenrick Padilla [address], [place], [place], [address] , [place]. tel:[phone] Referring Provider: Anuj Choudhary [address], [place], [place], [address]. tel:[phone] OFFICE/OUTPA TIENT VISIT, [facility], [address], [place], [place], [address], [place] tel:[phone] [facility] HLP (chief complaint) DM (chief complaint) HTN (chief complaint) hematuria1 (chief complaint) sleep apnea1 (chief complaint) back pani1 (chief complaint) HyperlipidemiaType 2 diabetes mellitus without complicationsHematu riaEssential (primary) hypertensionLumbago with sciatica, right sideSecondary polycythemia Mar- 2 Kenrick Leslie. [address], [place], [place], [address] , [place]. tel:[phone] Referring Provider: Zen Pollard [address], [place], [place], [address]. tel:[phone] OFFICE/OUTPA TIENT VISIT, EST [facility], [place], [address], [place], [place], [address], [place] tel:[phone] [facility] hematuria1 (chief complaint) polycythem ia1 (chief complaint) DM (chief complaint) HLP (chief complaint) Secondary polycythemiaHyperli pidemiaType 2 diabetes mellitus without complicationsHematu riaDermatophytosis of nail Jan- 1 Kenrick Leslie. [address], [place], [place], [address] , [place]. tel:[phone] Referring Provider: Zen Pollard [address], [place], [place], [address]. tel:[phone] PREV VISIT, EST, AGE 40-64 [facility], [place], [address], [place], [place], [address], [place] tel:[phone] [facility] physical (chief complaint) Encounter for general adult medical examination without abnormal findings 1 Kenrick Leslie. [address], [place], [place], [address] , [place]. tel:[phone] Referring Provider: Zen Pollard [address], [place], [address]. tel:[phone] OFFICE/OUTPA TIENT VISIT, EST [facility], [place], [address], [place], [place], [address], [place] tel:[phone] [facility] lymph node1 (chief complaint) HTN (chief complaint) HLP (chief complaint) Essential (primary) hypertensionSeconda ry polycythemiaTobacco useHyperlipidemiaLy mphadenopathyEncoun ter for oth screening for malignant neoplasm of breastHyperglycemia 1 Kenrick Leslie. [address], [place], [place], [address] , [place]. tel:[phone] Referring Provider: Zen Pollard [address], [place], [place], [address]. tel:[phone] PREV VISIT, EST, AGE 40-64 [facility], [place], [address], [place], [address], [place] tel:[phone] [facility] [place] PHysical (chief complaint) Encntr for general adult medical exam w/o abnormal findings 0 Kenrick Leslie. [address], [place], [place], [address] , [place]. tel:[phone] Referring Provider: Zen Pollard [address], [place], [place], [address]. tel:[phone] OFFICE/OUTPA TIENT VISIT, EST [facility], [place], [address], [place], [address], [place] tel:[phone] [facility] [place] HTN (chief complaint) hearing loss1 (chief complaint) fatty liver1 (chief complaint) hematuria1 (chief complaint) HematuriaEssential (primary) hypertensionFatty liverUmbilical herniaHearing loss 9 Kenrick Leslie. [address], [place], [address] , [place]. tel:[phone] Referring Provider: Zen Pollard [address], [place], [place], [address]. tel:[phone] OFFICE/OUTPA TIENT VISIT, EST [facility], [place], [address], [place], [address], [place] tel:[phone] [facility] [place] HLp (chief complaint) polycythmi a1 (chief complaint) low D (chief complaint) hematuria1 (chief complaint) hearing loss1 (chief complaint) Body mass index (BMI) 34.0-34.9, adultHematuriaEssen tial (primary) hypertensionSeconda ry polycythemiaHearing lossTobacco useHyperlipidemia 8 Kenrick Leslie. [address], [place], [place], [address] , [place]. [phone] Referring Provider: Zen Pollard [address], [place], [address]. tel:[phone] PREV VISIT, EST, AGE 40-64 [facility], [place], [address], [place], [address], [place] tel:[phone] [facility] [place] PHysical (chief complaint) Encounter for general adult medical exam w abnormal findingsHyperlipide miaEssential (primary) hypertensionHematur iaCoronary artery disease of [place] coronary artery without angina pectoris 8 Kenrick Leslie. [address], [place], [place], [address] , [place]. [phone] Referring Provider: Zen Pollard [address], [place], [place], [address]. tel:[phone] OFFICE/OUTPA TIENT VISIT, [facility], [address], [place], [place], [address], [place] tel:[phone] [facility] [place] HTN (chief complaint) hematuria1 (chief complaint) HLP (chief complaint) tobacco1 (chief complaint) skin1 (chief complaint) Essential (primary) hypertensionHyperli pidemiaNevus, non-neoplasticHemat uria 7 Kenrick Leslie. [address], [place], [place], [address] , [place]. [phone] Referring Provider: Zen Poll[address], [place], [place], [address]. tel:[phone] OFFICE/OUTPA TIENT VISIT, EST [facility], [place], [address], [place], [address], [place] tel:[phone] [facility] [place] tobacco1 (chief complaint) hematuria1 (chief complaint) HLP (chief complaint) HTN (chief complaint) Essential (primary) hypertensionTobacco useHyperlipidemiaHe maturia 7 Kenrick Leslie. [address], [place], [place], [address] , [place]. [phone] Referring Provider: Zen Pollard [address], [place], [place], [address]. tel:[phone] OFFICE/OUTPA TIENT VISIT, [facility], [address], [place], [address], [place] tel:[phone] [facility] [place] hematuria1 (chief complaint) knee pain1 (chief complaint) HTN (chief complaint) HLP (chief complaint) HematuriaPain in right kneeHyperlipidemiaE ssential (primary) hypertension 6 Kenrick Leslie. [address], [place], [place], [address] , [place]. [phone] Referring Provider: Zen Pollard [address], [place], [address]. tel:[phone] OFFICE/OUTPA TIENT VISIT, [facility], [address], [place], [place], [address], [place] [phone] [facility] [place] hematuria1 (chief complaint) polycyther mia1 (chief complaint) HTN (chief complaint) knee pian1 (chief complaint) HematuriaSecondary polycythemiaEssenti al (primary) hypertensionBody mass index (BMI) 35.0-35.9, adult Jan- 6 Kenrick Leslie. [address], [place], [place], [address] , [place]. [phone] Referring Provider: Zen Polladr [address], [place], [place], [address]. tel:[phone] OFFICE/OUTPA TIENT VISIT, [facility], [address], [place], [place], [address], [place] tel:[phone] [facility] HLP (chief complaint) polycyther mia1 (chief complaint) hematuria1 (chief complaint) HyperlipidemiaSecon delfina polycythemiaHematur iaVitamin D deficiency, unspecified 6 Kenrick Leslie. [address], [place], [place], [address] , [place]. tel:[phone] Referring Provider: Anuj Choudhary [address] [facility] [address], [place], [place], [address]. tel:[phone] PREV VISIT, NEW, AGE 40-64 [facility], [address], [place], [place], [address], [place] tel:[phone] [facility] Physical (chief complaint) Encounter for general adult medical exam w abnormal findingsEssential (primary) hypertensionHyperli pidemia 6 Kenrick Leslie. [address], [place], [place], [address] , [place]. tel:[phone] Referring Provider: Zen Pollard [facility] [address], [place], [place], [address]. tel:[phone] Family History Family Member Type Diagnosis Age [...] -Podiatric Medicine & Surgery Service Providers : Automatic Lathe Operator (related to Dermatophytosis of nail) ordered Referral Ordered: Occupational Therapy (related to Type 2 diabetes mellitus without complications) ordered Referral Referred To: Occupational Therapy Ordered: Referrals: Occupational Therapy. Evaluate and treat ordered Referral Referred To: TIAGO HARRIS [address] [facility] [place], [place], [phone] Ordered: Referrals: Podiatric Medicine & Surgery Service Providers : Automatic Lathe Operator. TIAGO HARRIS. Evaluate and treat ordered Referral [...] Disease (related to Coronary artery disease of [place] coronary artery without angina pectoris) ordered Referral Referred To: Vincenzo Grier [address] [place], [place] [phone] Ordered: Referrals: Allopathic & Osteopathic Physicians : Internal Medicine : Cardiovascular Disease. Vincenzo Grier. Evaluate and treat ordered Referral Referred To: Marc Bailey [address] [place], [phone] Ordered: Referrals: Allopathic & Osteopathic Physicians : Urology. Marc Bailey. Evaluate and treat ordered Referral Ordered: DXA BONE DENSITY, AXIAL ordered Referral Ordered: Itz Cameron (related to Nevus, non-neoplastic) ordered Referral Referred To: Itz Cameron [address] [place], [phone] Ordered: Referrals: Itz Cameron. Evaluate and treat ordered Referral Ordered: CT THORAX W/O DYE ordered Referral Ordered: Onel Nolasco (related to Hematuria) ordered Referral Ordered: Marc Bailey (related to Hematuria) ordered Referral Referred To: Marc Bailey [address] [place], [phone] Ordered: Referrals: Marc Bailey. Evaluate and treat ordered Referral Ordered: US, PELVIC (NONOBSTETRIC); ordered Referral Referred To: Onel Nolasco [address] [facility]
[address] [place], [phone] Ordered: Referrals: Onel Nolasco. Evaluate and treat ordered Referral Ordered: CT ABDOMEN&PELVIS W/CONTRAST ordered Referral Ordered: KNEE XRAY TWO-VIEW Right ordered Referral Ordered: Hematology (related to Secondary polycythemia) ordered Referral Ordered: Referrals: Hematology. Evaluate and treat ordered Referral Ordered: Vincenzo Grier (related to Hyperlipidemia) ordered Referral Ordered: MAMMOGRAM, SCREENING ordered Referral Referred To: Vincenzo Grier [address] [facility] [address] [place], [phone] Ordered: Referrals: Vincenzo Grier. 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 [...] has chronic hematuria Pt sees urology at [facility] ,Pt had negative CT scan and cysto, [...] good until next year per urology at [facility] hearing loss1 Pt has chronic h earing loss. Pt is getting hearing AID today. Pt denies any ear pain HTN Pt has HTn. Pt t akes metoprolol. Pt sees cardiology. Pt has CAD with stent. pt sees cardiology Pt denies any chest pain HLp Pt has HLP Pt ta kes [...] removed recently. Pt was discharged from the [facility]/oncology office. Pt denies any UTI symptoms Pt [...] any UTI symptoms Pt had negative cytology hematuria1 Pt has some bloo d in urine. Pt had partial hysterctomy in the past due to fibroid. Pt denies any flank pain, UTI. HLP Pt has mildly el evated TG Pt takes zocor. Pt denies anym yalgia polycythermia1 Pt has polycythe rmia. Pt has mildly elevated MCV. Pt states that she does not drink very much alcohol at all. Pt does smoke about one pack per day Physical Pt needs annual physical. Pt has [...]
--- OUTSIDE RECORDS SUMMARY | 2024-07-08 09:09 | XMS_ITS | Clinical Summary ---
Author Organization [facility] Address [address] [place] [address] Phone Care Team Providers Care Jig Filler Name Role Phone Wander Joiner DO Unavailable [phone] Guilherme Fleix MD Primary Care Provider Anuj Choudhary Unavailable Allergies Active Allergy Reactions Criticality Noted Date Comments Iron Rash 01/15/2016 Medications metFORMIN (GLUCOPHAGE) 500 MG Tablet Take 1 Tablet by mouth. 1 Active [place]-3 Fatty Acids (fish oil) 1200 MG Capsule [...] mouth. 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 Gender Identity Not on file Sexual Orientation [...] AM CDT Lab [facility] [address] [address] Lab, [facility] 08/05/2024 9:15 AM CDT Office Visit [facility] [address] [address] Wander Joiner, [address] [place] [address] Health Maintenance Due Date Last Done [...] to complete this topic Insurance [place]IC[place] [address] Care Teams Jig Filler Relationship Specialty Start Date End Date Guilherme Felix MD [address] [place] [phone] PCP - General Family Medicine 08/12/22 Wander Joiner DO [address] [place] [address] Consulting Physician Oncology 08/08/22 Anuj Choudhary [address] [place] [address] Family Medicine 08/12/22
[2024-07-08 09:12] LABS: Basophils Absolute Auto 0.1 K/mm3 (0.0-0.1); Basophils Percent Auto 0.9 % (0.2-1.2); Eosinophils Absolute Auto 0.1 K/mm3 (0-0.3); Eosinophils Percent Auto 0.9 % (0-4.4); Hematocrit 49.5 % (37.0-47.0); Hemoglobin 17.3 g/dL (12.0-15.0); Immature Granulocyte Absolute 0.01 K/mm3 (0.00-0.031); Immature Granulocyte Percent A 0.2 % (0-0.5); Lymphocytes Absolute Auto 2.13 K/mm3 (0.9-3.2); Lymphocytes Percent Auto 40.4 % (18.3-44.2); Mean Corpuscular HGB Conc 34.9 g/dl (32-36); Mean Corpuscular Hemoglobin 35.2 pg (26-34); Mean Corpuscular Volume 100.6 fl (80-100); Monocytes Absolute Auto 0.5 K/mm3 (0.1-0.6); Monocytes Percent Auto 9.7 % (2.6-8.5); Neutrophils Absolute Auto 2.5 K/mm3 (1.3-6.7); Neutrophils Percent Auto 47.9 % (45.5-73.1); Platelet Count Result 250 k/mm3 (150-375); Red Blood Count 4.92 M/mm3 (4.2-5.4); Red Cell Distribution Width 13.8 % (11.5-14.5); White Blood Count 5.3 K/mm3 (4.5-10.0)
== END 2024-07-08 09:03 | disposition home or self-care (01) ==
LOC: ANHLAB 09:03
PROVIDERS: PCP Family Medicine; Visit Provider Internal Medicine Hematology & Oncology
DX: D75.1 Secondary polycythemia (principal)
CPT/HCPCS: 36415; 85025

== ENCOUNTER 2024-10-06 09:16 | Outpatient (CLI) | payer MEDICARE, SELFPAY ==
--- OUTSIDE RECORDS SUMMARY | 2024-10-06 09:22 | XMS_ITS | Clinical Summary ---
Author Organization [facility] Address [address] [place] [address] Phone Care Team Providers Care Grain Inspector Name Role Phone Wander Joiner DO Unavailable [phone] Guilherme Felix MD Primary Care Provider [phone] Anuj Choudhary Unavailable Allergies Active Allergy Reactions Criticality Noted Date Comments Iron Rash 01/15/2016 Medications metFORMIN (GLUCOPHAGE) 500 MG Tablet Take 1 Tablet by mouth. 1 Active [place]-3 Fatty Acids (fish oil) 1200 MG Capsule [...] mouth. Active Cholecalciferol (Vitamin D3) 1.25 MG (38507 UT) Capsule TAKE 1 CAPSULE BY MOUTH ONCE A WEEK 2 Active lisinopril (PRINIVIL, ZESTRIL) 2.5 MG Tablet Take 2.5 mg by mouth daily. 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 Encounters Date Type Department Care Team Description 08/02/2024 Telephone [facility] [address] [address] Wander Joiner, from Last 3 Months Immunizations Immunization Administration Dates Next Due Influenza [...] on file Legal Sex Female 11:37 AM GREENS TIER Gender Identity Not on file Sexual Orientation [...] A M CDT Height 166.4 cm (5' 5.5) 08/07/2023 9:13 AM CDT Body Mass Index 29.53 08/07/2023 9:13 AM CDT Plan of Treatment Health Maintenance Due Date Last Done Comments DEXA Bone Density 1955 Hepatitis C Virus (HCV) Screening 1955 Mammogram 1955 TdaP Immunization 1955 Cologuard 2001 Colonoscopy 2001 Colorectal Cancer Screening 2001 Immunochemical Fecal Occult Blood 2001 SARS-COV-2 Immunization ( season) 2023 11/25/2022, 12/09/2021, 02/12/2021, Additional history exists Influenza Immunization (#1) 10/31/202408/2022, 12/09/2021, 11/29/2018, Additional history exists Pneumococcal Immunization (50+ years) Completed 11/06/2022 Pneumococcal Immunization Combined Discontinued 11/06/2022 Respiratory Syncytial Virus (RSV) Immunization (Adult) Completed 11/06/2022 Zoster Immunization Completed 04/03/2023, Hepatitis B Immunization Aged Out No longer eligible based on patient's age to complete this topic Human Papillomavirus (HPV) Immunization Aged Out No longer eligible based on patient's age to complete this topic Meningococcal Immunization (ACWY) Aged Out No longer eligible based on patient's age to complete this topic Rotavirus Immunization Aged Out No lo nger eligible based on patient's age to complete this topic Insurance [facility] Care Teams Grain Inspector Relationship Specialty Start Date End Date Guilherme Felix MD [address] [place] [address] PCP - General Family Medicine 08/12/22 Wander Joiner DO [address] [place] [phone] Consulting Physician Oncology 08/08/22 Anuj Choudhary [address] [place] [address] Family Medicine 08/12/22
--- OUTSIDE RECORDS SUMMARY | 2024-10-06 09:22 | XMS_ITS | Encounter Summary ---
Author Organization [facility] Address [address] [place] [address] Phone Care Team Providers Care Transfusion Nurse Name Role Phone Wander Joiner DO Unavailable [phone] Guilherme Felix MD Primary Care Provider [phone] Anuj Choudhary Unavailable Encounter Details Date Type Department Care Team (Late st Contact Info) Description 08/02/2024 Telephone [facility] [address] [place] [address] Wander Joiner, DO [address] [place] [address] Social History Tobacco Use Types Packs/Day Years Used Date Smoking Tobacco: Every Day Cigarettes Cigars Smokeless Tobacco: Never Comments:since age 16 Alcohol Use Standard Drinks/Week Comments Not Currently 0 (1 standard drink = 0.6 oz pur e alcohol) PHQ-2 Answer Date Recorded Total Score - Questions 1-9 0 07/01 Comments Unknown Sex and Gender Information Value Date Recorded Sex Assigned at Not on file Legal 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 F/U appt has been cancelled. documented in this encounter Plan of Treatment Not on file documented as of this encounter Visit Diagnoses Not on filedocumented in this encounter Additional Health Concerns Assessment Noted Time PHQ-9 Depression Total Score: 0 05/07/19 17 9:54 AM TELECOMMUNICATIONS FIELD ENGINEER documented as of this encounter Care Teams Transfusion Nurse Relationship Specialty Start Date End Date Guilherme Felix MD [address] [place] [address] PCP - General Family Medicine 08/12/22 Wander Joiner DO [address] [place] [phone] Consulting Physician Oncology 08/08/22 Anuj Choudhary [address] [place] [address] Family Medicine 08/12/22 documented as of this encounter
--- OUTSIDE RECORDS SUMMARY | 2024-10-06 09:22 | XMS_ITS | Clinical Summary ---
Author Organization [facility] Allan Isbell Address [address] [place] [address] Care Team Providers Care Share Dairy Farmer Name Role Phone Wander Velasquez MD Primary Care Provider [phone] Allergies Active Allergy Reactions Criticality Noted Date [...] Encounters Date Type Department Care Team Description 10/04/2024 External Device Data ST[facility] ABSTRACTION Provider, Abstract 10/04/2024 External Device Data [facility]STRACTION Provider, Abstract 09/14/2024 External Device Data [facility]STRA[facility] Provider, Abstract 09/14/2024 External Device Data [facility] Provider, Abstract 08/23/2024 External Device Data [facility]STRACTION Provider, Abstract 07/22/2024 External Device Data [facility] ABSTRACTION Provider, Abstract 07/21/2024 External Device Data [facility] ABSTRACTION Provider, Abstract 07/20/2024 External Device Data [facility] ABSTRACTION Provider, Abstract 07/08/2024 9:15 AM CDT Office Visit [facility] Oncology and Hematology - [place] [address] [place] [phone] Ethan Santos MD Polycythemia, secondary (Primary Dx) 07/08/2024 Orders Only [facility] Oncology and Hematology [place] [address] [place] [phone] Ethan Santos MD from Last 3 Months Family History Medical [...] Date Smoking Tobacco: Every Day Cigarettes 0.5 51.6 Started: 1972 Smokeless Tobacco: Never Tobacco Cessation:Ready to Q uit: Not Asked; Counseling Given: Not Answered Alcohol Use Standard Drinks/Week Comments Never 0 (1 standard drink = 0.6 oz pur e alcohol) Comments Unknown Sex and Gender Information Value Date Recorded Sex Assigned at Not on file Legal Sex Female 11:21 AM VISUAL EFFECTS ARTIST Gender Identity Not on file Sexual Orientation Not on file Last Filed Vital Signs Vital Sign Reading Time Taken Comments Blood Pressure 112/73 07/08/2024 9:17 AM CDT Pulse 54 07/08/2024 9:17 AM CDT Temperature 35.4 C (95.7 F) 07/08/2024 9:17 AM CDT Respiratory Rate 15 07/08/2024 9:17 AM CDT Oxygen Saturation 95% 07/08/2024 9:17 AM CDT Inhaled Oxygen Concentration - - Weight 87.4 kg (192 lb 9.6 oz) 07/08/2024 9:17 A M CDT Height 165.1 cm (5' 5) 03/04/2024 10:29 AM VISUAL EFFECTS ARTIST Body Mass Index 32.05 03/04/2024 10:29 AM VISUAL EFFECTS ARTIST Plan of Treatment Upcoming Encounters Date Type Department Care Team (Late st Contact Info) Description 01/13/2025 9:15 AM VISUAL EFFECTS ARTIST Office Visit [facility] Oncology and Hematology - [place] [address] [place] [address] Ethan Santos MD [address] [facility] [address] [place] [address] Health Maintenance Due Date Last [...] 2006 OSTEOPOROSIS SCREENING 2021 INFLUENZA VACCINE (#1) 2024 12/02/2016 RSV VACCINE (60+ or ) (1 - 1-dose 75+ series) 11/25/2031 Procedures Procedure Name Priority Date/Time Associated Diagnosis Comments CBC WITH AUTODIFFERENTIAL Routine 2024 1:42 PM CDT from Last 3 Months Results * CBC WITH AUTODIFFERENTIAL (07/08/2024 1:42 PM CDT) Blood us Ethan Santos MD HEMATOLOGY ORDERABLES Final Res ult from Last 3 Months Insurance [employer] O [facility] Care Teams Share Dairy Farmer Relationship Specialty Start Date End Date Wander Velasquez MD [address] [place] [phone] PCP - General Family Practice 03/04/24
--- OUTSIDE RECORDS SUMMARY | 2024-10-06 09:22 | XMS_ITS | Encounter Summary ---
Author Organization [facility] Address [address] [place] [address] Care Team Providers Care Gas Appliance Servicer Helper Name Role Phone Wander Velasquez MD Primary Care Provider [phone] Encounter Details Date Type Department Care Team (Late st Contact Info) Description 10/04/2024 External Device Data STL ABSTRACTION Provider, Abstract NO ADDRESS ON FILE Social History Tobacco Use Types Packs/Day Years Used Date Smoking Tobacco: Every Day Cigarettes 0.5 51.6 Started: 1972 Smokeless Tobacco: Never Alcohol Use Standard Drinks/Week Comments Never 0 (1 standard drink = 0.6 oz pur e alcohol) Comments Unknown Sex and Gender Information Value Date Recorded Sex Assigned at Not on file Legal Sex Female 11:21 AM REGISTRATION SCHEDULING SPECIALIST Gender Identity Not on file Sexual Orientation Not on file documented as of this encounter Plan of Treatment Upcoming Encounters Date Type Department Care Team (Late st Contact Info) Description 01/13/2025 9:15 AM REGISTRATION SCHEDULING SPECIALIST Office Visit [facility] Oncology and Hematology - [place] [address] [facility] [address] [place] [address] Ethan Santos MD [address] [facility] [address] [place] [address] documented as of this encounter Visit Diagnoses Not on filedocumented in this encounter Care Teams Gas Appliance Servicer Helper Relationship Specialty Start Date End Date Wander Velasquez MD [address] [place] [address] PCP - General Family Practice 03/04/24 documented as of this encounter
--- OUTSIDE RECORDS SUMMARY | 2024-10-06 09:22 | XMS_ITS | Encounter Summary ---
Author Organization [facility] Address [address] [place] [address] Care Team Providers Care High Pressure Operator Name Role Phone Wander Velasquez MD Primary Care Provider [phone] Encounter Details Date Type Department Care Team [...] on file Legal Sex Female 11:21 AM ACID PLANT HELPER Gender Identity Not on file Sexual Orientation Not on file documented as of this encounter Plan of Treatment Upcoming Encounters Date Type Department Care Team (Late st Contact Info) Description 01/13/2025 9:15 AM ACID PLANT HELPER Office Visit [facility] Oncology and Hematology - [place] [address] [facility] [address] [place] [address] Ethan Santos MD [address] [facility] [address] [place] [address] documented as of this encounter Visit Diagnoses Not on filedocumented in this encounter Care Teams High Pressure Operator Relationship Specialty Start Date End Date Wander Velasquez MD [address] [place] [address] PCP - General Family Practice 03/04/24 documented as of this encounter
[2024-10-06 10:12] LABS: Cholesterol 147 mg/dL (0-200); HDL Direct 43 mg/dL; Triglycerides 170 mg/dL (<150)
== END 2024-10-06 09:17 | disposition home or self-care (01) ==
PROVIDERS: PCP Family Medicine; Visit Provider Internal Medicine Cardiovascular Disease
DX: E78.5 Hyperlipidemia, unspecified (principal)
CPT/HCPCS: 36415; 80061

== ENCOUNTER 2024-10-17 07:22 | Outpatient (CLI) | payer MEDICARE, SELFPAY ==
--- NOTE | ~2024-10-17 | MM_ITS ---
EXAMINATION: MM screening dalila BI w patricia HISTORY: Screening mammogram TECHNIQUE: Craniocaudal and mediolateral oblique 3-D tomosynthesis images were obtained and synthetic 2-D images were generated. CAD analysis was submitted and interpreted. COMPARISON: 02/02/2023, 12/28/2020 BREAST PARENCHYMAL COMPOSITION:Not Dense. There are scattered areas of fibroglandular density. FINDINGS: No suspicious mass, calcification, or architectural distortion are identified in either stephanie ast to suggest malignancy. There has been no suspicious interval change. IMPRESSION: No mammographic evidence of malignancy. Recommend routine screening mammography in one year. BI-RADS Category 1: Negative Reviewed, dictated and finalized at location .
--- OUTSIDE RECORDS SUMMARY | 2024-10-17 07:25 | XMS_ITS | Clinical Summary ---
Author Organization [facility] Address [address] [place] [address] Phone Care Team Providers Care Aerial Gunner Name Role Phone Wander Joiner DO Unavailable [phone] Guilherme Felix MD Primary Care Provider [phone] Anuj Choudhary Unavailable Allergies Active Allergy Reactions Criticality Noted Date Comments Iron Rash 01/15/2016 Medications metFORMIN (GLUCOPHAGE) 500 MG Tablet Take 1 Tablet by mouth. 1 Active Broadford-3 Fatty Acids (fish oil) 1200 MG Capsule [...] mouth. Active Cholecalciferol (Vitamin D3) 1.25 MG (06110 UT) Capsule TAKE 1 CAPSULE BY MOUTH [...] Description 08/02/2024 Telephone [facility] [address] [address] Wander Joiner, from Last 3 [...] on file Legal Sex Female 11:37 AM GEOPOLITICS TEACHER Gender Identity Not on file Sexual Orientation [...] to complete this topic Insurance MEDICARE C [facility] [employer] [facility] Care Teams Aerial Gunner Relationship Specialty Start Date End Date Guilherme Felix MD [address] [place] [address] PCP - General Family Medicine 08/12/22 Wander Joiner DO [address] [place] [phone] Consulting Physician Oncology 08/08/22 Anuj Choudhary [address] [place] [address] Family Medicine 08/12/22
--- OUTSIDE RECORDS SUMMARY | 2024-10-17 07:26 | XMS_ITS | Encounter Summary ---
Author Organization [facility] Address [address] [place] [address] Phone Care Team Providers Care Childhood Teacher Name Role Phone Wander Joiner DO Unavailable [phone] Guilherme Felix MD Primary Care Provider [phone] Anuj Choudhary Unavailable Encounter Details Date Type Department Care Team (Late st Contact Info) Description 08/02/2024 Telephone [facility] [address] [place] [address] Wander Joiner, DO [address] [place] [address] Social History Tobacco Use Types [...] on file Legal Sex Female 11:37 AM ARABIC PROFESSOR Gender Identity Not on file Sexual Orientation Not on file documented as of this encounter Miscellaneous Notes * Telephone Encounter - Rosy Hall - 08/02/2024 8:54 AM CDT FYI: Patient has decided to go see a sand wheeler that her pcp is sending her to in [place]. F/U appt has been cancelled. documented in this encounter Plan of Treatment Not on file documented as of this encounter Visit Diagnoses Not on filedocumented in this encounter Additional Health Concerns Assessment Noted Time PHQ-9 Depression Total Score: 0 05/07/19 17 9:54 AM ARABIC PROFESSOR documented as of this encounter Care Teams Childhood Teacher Relationship Specialty Start Date End Date Guilherme Felix MD [address] [place] [address] PCP - General Family Medicine 08/12/22 Wander Joiner DO [address] [place] [address] Consulting Physician Oncology 08/08/22 Anuj Choudhary [address] [place] [address] Family Medicine 08/12/22 documented as of this encounter
--- OUTSIDE RECORDS SUMMARY | 2024-10-17 07:26 | XMS_ITS | Clinical Summary ---
Author Organization [facility] Address [facility] [place] [address] Care Team Providers Care Post Graduate Internship Name Role Phone Anuj Choudhary MD Primary Care Provider [phone] Social History Tobacco Use Types Packs/Day Years [...] age to complete this topic Care Teams Post Graduate Internship Relationship Specialty Start Date End Date Anuj Choudhary MD PCP - General 01/15/16
--- OUTSIDE RECORDS SUMMARY | 2024-10-17 07:26 | XMS_ITS | Clinical Summary ---
Author Organization [facility] Allan Isbell Address [address] [facility] [place] [address] Care Team Providers Care Director Data Architecture Name Role Phone Wander Velasquez MD Primary Care Provider [phone] Allergies Active Allergy Reactions Criticality Noted Date [...] on file Legal Sex Female 11:21 AM SUPERVISOR FLOOR ASSEMBLY Gender Identity Not on file Sexual Orientation [...] 165.1 cm (5' 5) 03/04/2024 10:29 AM SUPERVISOR FLOOR ASSEMBLY Body Mass Index 32.05 03/04/2024 10:29 AM SUPERVISOR FLOOR ASSEMBLY Plan of Treatment Upcoming Encounters Date Type Department Care Team (Late st Contact Info) Description 01/13/2025 9:15 AM SUPERVISOR FLOOR ASSEMBLY Office Visit [facility] Oncology and Hematology - [place] [address] [place] [address] Ethan Santos MD [address] [facility] [address] [place] [address] Health Maintenance Due Date Last Done Comments [...] ) (1 - 1-dose 75+ series) 11/25/2031 Insurance [employer] [facility] Address: [facility] [id number] [place] [address] Care Teams Director Data Architecture Relationship Specialty Start Date End Date Wander Velasquez MD [address] [place] [address] PCP - General Family Practice 03/04/24
== END 2024-10-17 07:23 | disposition home or self-care (01) ==
LOC: ANHIMG 07:22
PROVIDERS: PCP Family Medicine; Visit Provider Family Medicine
DX: Z12.31 Encounter for screening mammogram for malignant neoplasm of breast (principal)
CPT/HCPCS: 77063; 77067

== ENCOUNTER 2024-11-03 09:23 | Outpatient (CLI) | payer MEDICARE, SELFPAY ==
--- OUTSIDE RECORDS SUMMARY | 2006-10-22 12:11 | XMS_ITS | Continuity of Care Document ---
Author Organization [facility] Address [address] [place] [address] [address] [place] [address] Phone Care Team Providers Care Clinical Tech Name Role Phone Brown OD, Agapito Unavailable Unavailable Procedures Procedure Date Office/outpatient Visit, Est Office/outpatient Visit, Est Advance Directives Directive Yes / No Effective Date File Name No Information Encounters Encounter Description Practice Location Reason(s) For Visit Diagnoses Date Provider Providers Copied on Encounter Office/outpat [place], [facility] [address] [place] [address] [address], [place], [place], [id number], tel:[phone] [facility] No Information 3-200 7 Brown OD Agapito. [address] , [address], [place], [place], [facility], . tel:[phone] Office/outpat ient Visit, [facility], [address] [place] [address] [address], [place], [place], [id number], tel:[phone] [facility] No Information 6-200 7 Brown OD Agapito. [address] , [address], [place], [address], [place]. tel:[phone] Referring Provider: Low uBi MD , [address] [facility] [address], [place], [address]. tel:[phone] Family History Family Member Type Diagnosis Age At Onset No Information Payers Payer name Insurance type Covered republican ID Authoriza tion(s) No Information Social History [...]
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
--- NOTE | ~2024-11-03 | CT_ITS ---
EXAMINATION: CT brain wo con DATE: 11/03/2024 09:48 INDICATION: Loss of consciousness and headache post fall with anterior head injury TECHNIQUE: Computed tomography (CT) of the head was performed without intravenous contrast. Sagittal and coronal reconstructions were performed. The mA was adjusted according to patient size. Iterative reconstruction technique was employed. The dose-length product was 605.33 mGy-cm. COMPARISON: head CT dated 09/10/2004 and MRI dated 05/18/2024 FINDINGS: Small anterior left frontal scalp hematoma. No fracture. No acute intracranial hemorrhage, acute infarction or abnormal extra axial fluid collection. Small old lacunar infarct at the anterior limb of the right internal capsule. There is mild scattered white matter hypoattenuation consistent with chronic small vessel ischemic disease. Ventricles are normal and symmetric. No mass/mass effect. Changes of bilateral intraocular lens replacement. The orbits and mastoid air cells are normal. Mild mucosal thickening in the right maxillary sinus. IMPRESSION: 1. No fracture or acute intracranial process. 2. 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 Reviewed, dictated and finalized at location A.
--- OUTSIDE RECORDS SUMMARY | 2024-11-03 09:44 | XMS_ITS | Clinical Summary ---
Author Organization [facility] Address [address] [place] [address] Phone Care Team Providers Care Informatics Consultant Name Role Phone Wander Joiner DO Unavailable [phone] Guilherme Felix MD Primary Care Provider [phone] Anuj Choudhary Unavailable Allergies Active Allergy Reactions Criticality Noted Date Comments Iron Rash 01/15/2016 Medications metFORMIN (GLUCOPHAGE) 500 MG Tablet Take 1 Tablet by mouth. 1 Active Acme-3 Fatty Acids (fish oil) 1200 MG Capsule [...] mouth. Active Cholecalciferol (Vitamin D3) 1.25 MG (99590 UT) Capsule TAKE 1 CAPSULE BY MOUTH [...] on file Legal Sex Female 11:37 AM LINOLEUM FLOOR INSTALLER Gender Identity Not on file Sexual Orientation [...] Screening 2001 Immunochemical Fecal Occult Blood 2001 Influenza Immunization (#1) 2024 09/0 08/2022, 12/09/2021, 11/29/2018, Additional history exists SARS-COV-2 Immunization ( season) 2024 11/25/2022, 12/09/2021, 02/12/2021, Additional history exists Pneumococcal [...] to complete this topic Insurance MEDICARE C [facility] Care Teams Informatics Consultant Relationship Specialty Start Date End Date Guilherme Felix MD [address] [place] [address] PCP - General Family Medicine 6/13/23 Wander Joiner DO [address] [place] [address] Consulting Physician Oncology 08/08/22 Anuj Choudhary [address] [place] [address] Family Medicine 08/12/22
--- OUTSIDE RECORDS SUMMARY | 2024-11-03 09:44 | XMS_ITS | Clinical Summary ---
Author Organization [facility] Allan Isbell Address [address] [facility] [address] Care Team Providers Care Cabinetmaker Maintenance Name Role Phone Wander Velasquez MD Primary Care Provider [phone] Allergies Active Allergy Reactions Criticality Noted Date [...] Date Smoking Tobacco: Every Day Cigarettes 0.5 51.7 Started: 1972 Smokeless Tobacco: Never Tobacco Cessation:Ready to Q uit: Not Asked; Counseling Given: Not Answered Alcohol Use Standard Drinks/Week Comments Never 0 (1 standard drink = 0.6 oz pur e alcohol) Comments Unknown Sex and Gender Information Value Date Recorded Sex Assigned at Not on file Legal Sex Female 11:21 AM SOFTWARE TEST ANALYST Gender Identity Not on file Sexual Orientation [...] 165.1 cm (5' 5) 03/04/2024 10:29 AM SOFTWARE TEST ANALYST Body Mass Index 32.05 03/04/2024 10:29 AM SOFTWARE TEST ANALYST Plan of Treatment Upcoming Encounters Date Type Department Care Team (Late st Contact Info) Description 01/13/2025 9:15 AM SOFTWARE TEST ANALYST Office Visit [facility] Oncology and Hematology - [place] [address] [place] [address] Ethan Santos MD [address] [facility] [address] [place] [address] Health Maintenance Due Date Last [...] 75+ series) 11/25/2031 Insurance AETNA O [facility] Address: [facility] [id number] [place] [address] Care Teams Cabinetmaker Maintenance Relationship Specialty Start Date End Date Wander Velasquez MD [address] [place] [address] PCP - General Family Practice 03/04/24
--- OUTSIDE RECORDS SUMMARY | 2024-11-03 09:44 | XMS_ITS | Clinical Summary ---
Author Organization [facility] Address [address] [place] [address] Care Team Providers Care Field Crop Harvest Worker Name Role Phone Anuj Choudhary MD Primary Care Provider [phone] Source Comments [facility],non-owned Affiliates and Associated Physician Practices is amultiple site organization consisting of ambulatory clinics and hospital sitesin [place] and [place]. This disclosure is being madepursuant to the Care Everywhere program and may not contain all information available regarding this patient. Last updated 17.[facility] Allergies Active Allergy Reactions Criticality Noted Date [...] Take 1 tablet by mouth 1 Active Bruce-3 Fatty Acids (FISH OIL) 1000 MG capsule [...] on file Legal Sex Female 5:48 PM SOLE TIER Gender Identity Not on file Sexual Orientation Not on file Last Filed Vital Signs Vital Sign Reading Time Taken Comments Blood Pressure 125/71 08/30/2021 10:02 AM CDT Pulse 72 08/30/2021 10:02 AM CDT Temperature 36.2 C (97.2 F) 03/03/2019 8:30 AM SOLE TIER Respiratory Rate 11 05/15/2016 2:45 PM CDT Oxygen Saturation 98% 08/30/2021 10:02 AM CDT Inhaled Oxygen Concentration - - Weight 95.7 kg (211 lb) 02/26/2018 8:06 AM SOLE TIER Height 165.1 cm (5' 5) 02/26/2018 8:06 AM SOLE TIER Body Mass Index 35.11 02/26/2018 8:06 AM SOLE TIER Plan of Treatment Health Maintenance Due Date [...] 11/25/1975 ZOSTER VACCINE (1 of 2) 2006 DEPRESSION SCREENING 03/02/2024 MEDICARE AWV CALENDAR YEAR 2024 COVID-19 VACCINE (4 - 2024-2 6 season) 2024 02/12/2021, 05/22/2020, 05/01/2020 INFLUENZA VACCINE (#1) 2024 9, 12/02/2016, 10/31/2016 Respiratory Syncytial Virus (RSV) Vaccine [...] patient's age to complete this topic Insurance [facility] AETNA MEDICARE ADV SELF PAY NO INSURANCE Member Subscriber Plan / Payer (Ef fective for All Dates) Name:Tawanna Jones Member ID:Not on file Relation to Subscriber:Not on file Name:TAWANNA JONES Subscriber ID:Not on file (Home) Address: [address] [place] [address] Payer ID:Not on file Group ID:Not on file Type:Self Pay Address: [place], [place] MEDICAID - OUT OF STATE Advance Directives * Full Code (Latest Code Status on File) Date Activated Date Inactivated Comments 03/21/2016 6:54 PM 03/22/2016 3:04 PM Care Teams Field Crop Harvest Worker Relationship Specialty Start Date End Date Anuj Choudhary MD [address] [facility] [address] [place] [phone] PCP - General Family Medicine 03/11/16
--- OUTSIDE RECORDS SUMMARY | 2024-11-03 09:44 | XMS_ITS | Encounter Summary ---
Author Organization [facility] Address [address] [place] [address] Care Team Providers Care Manager Of Merchandising Name Role Phone Anuj Choudhary MD Primary Care Provider [phone] Encounter Details Date Type Department Care Team (Late st Contact Info) Description 07/21/2024 Lab Requisition [facility] - DermPath Lab [address] [place] [address] Jose A Gage MD [facility] [address] [place] [phone] Neoplasm of uncertain behavior of skin; Other pruritus Social History Tobacco Use Types Packs/Day Years Used Date Smoking Tobacco: Every Day Cigarettes Smokeless Tobacco: Never Alcohol Use Standard Drinks/Week Comments No 0 (1 standard drink = 0.6 oz pur e alcohol) Comments No Sex and Gender Information Value Date Recorded Sex Assigned at Not on file Legal Sex Female 5:48 PM EARLY INTERVENTION SPECIALIST Gender Identity Not on file Sexual Orientation Not on file documented as of this encounter Functional Status * Is person deaf or have serious hearing difficulty? Answer Date of Assessment Author No 03/21/2016 10:25 AM EARLY INTERVENTION SPECIALIST Rosy Wagner RN * Is person blind or have serious difficulty seeing? Answer Date of Assessment Author No 03/21/2016 10:25 AM Rosy Aguirre RN * Does person have serious difficulty walking/climbing stairs? Answer Date of Assessment Author No 03/21/2016 10:25 AM Rosy Aguirre RN * Does person have difficulty dressing/bathing? Answer Date of Assessment Author No 03/21/2016 10:25 AM Rosy Aguirre RN * Does person have difficulty doing errands alone? Answer Date of Assessment Author No 03/21/2016 10:25 AM Rosy Aguirre RN documented as of this encounter Mental Status * Does person have difficulty concentrating/remembering/making decisions? Answer Entry Date Author No 03/21/2016 10:25 AM Rosy Aguirre RN documented in this encounter Plan of Treatment Not on file documented as of this encounter Procedures Procedure Name Priority Date/Time Associated Diagnosis Comments DERMATOPATHOLOGY Routine 07/21/2024 10:4 9 AM CDT Neoplasm of uncertain behavior of skin Other pruritus documented in this encounter Results * DERMATOPATHOLOGY (07/21/2024 10:49 AM CDT) Case Report Dermatopathology Report Case: [id number] Authorizing Provider: Jose A Gage MD Collected: 07/21/2024 10:49 AM Ordering Location: [facility] - Received: 07/26/2024 06:58 AM DermPath Lab Pathologist: Kajal Gonzalez MD Specimen: Skin, mid upper back 1:54 PM CDT DERMATOPATHOLOGY LABORATORY Final Diagnosis Specimen A. SKIN, mid upper back: SEBORRHEIC KERATOSIS, INFLAMED (L82.0) 1:54 PM CDT DERMATOPATHOLOGY LABORATORY at 1354 CDT Clinical History Irritated Seborrheic Keratosis vs. SCC 1:54 PM CDT DERMATOPATHOLOGY LABORATORY Gross Description Specimen A: Received is one formalin filled container labeled with the patients name and designated mid upper back. The specimen consists of a shave removal measuring 8x8x3 mm. Jar 0. 1:54 PM CDT DERMATOPATHOLOGY LABORATORY Microscopic Description Specimen A. SKIN, mid upper back: There is hyperkeratosis, parakeratosis, papillomatosis, and acanthosis of the epidermis. There is a lymphohistiocytic infiltrate within the papillary dermis that is focally lichenoid. 1:54 PM CDT DERMATOPATHOLOGY LABORATORY Disclaimer An external and internal positive and negative controls are appropriate for the histochemical, immunohistochemical and immunofluorescence stain(s) in this case (if any), except where stated explicitly. The performance characteristics of the stain(s) cited in this report were developed and its performance characteristic determined by the Dermatopathology Laboratory at [facility], directed by Dr. Kris Fernández. These tests need not be, and therefore are not, approved by the [place] Food and Drug Administration. The tests are used for clinical purposes. Billing Codes Specimen Charges Stain Charges 55857 1 1:54 PM CDT DERMATOPATHOLOGY LABORATORY Embedded Images 1:54 PM CDT DERMATOPATHOLOGY LABORATORY Pathology/Cytolo gy TISSUE SPECIMEN FROM SKIN / Unknown 07/21/2024 10:49 AM CDT 07/26/2024 6:58 AM CDT Jose A Gage MD LAB - PATHOLOGY/CYTOLOGY ORDE LUIS Final Result DERMATOPATHOLOGY LABORATORY [facility] Department of Dermatology [facility] Medicine [address] [place] [address], [address] [phone] documented in this encounter Visit Diagnoses Diagnosis Neoplasm of uncertain behavior of skin Other pruritus documented in this encounter Care Teams Manager Of Merchandising Relationship Specialty Start Date End Date Anuj Choudhary MD [address] [facility] [address] [address] PCP - General Family Medicine 03/11/16 documented as of this encounter
--- OUTSIDE RECORDS SUMMARY | 2024-11-03 09:44 | XMS_ITS | Encounter Summary ---
Author Organization [facility] Address [address] [place] [address] Phone Care Team Providers Care Pretzel Twisting Machine Operator Name Role Phone Wander Joiner DO Unavailable [phone] Guilherme Felix MD Primary Care Provider [phone] Anuj Choudhary Unavailable Encounter Details Date Type Department Care Team (Late st Contact Info) Description 08/02/2024 Telephone [facility] [address] [place] [address] Wander Joiner, DO [address] [place] [address] Social History Tobacco Use Types [...] on file Legal Sex Female 11:37 AM CLINICAL RN LIAISON Gender Identity Not on file Sexual Orientation Not on file documented as of this encounter Miscellaneous Notes * Telephone Encounter - Rosy Hall - 08/02/2024 8:54 AM CDT FYI: Patient has decided to go see a preventive medicine physician that her pcp is sending her to in [place]. F/U appt has been cancelled. documented in this encounter Plan of Treatment Not on file documented as of this encounter Visit Diagnoses Not on filedocumented in this encounter Additional Health Concerns Assessment Noted Time PHQ-9 Depression Total Score: 0 05/07/19 17 9:54 AM CLINICAL RN LIAISON documented as of this encounter Care Teams Pretzel Twisting Machine Operator Relationship Specialty Start Date End Date Guilherme Felix MD [address] [place] [address] PCP - General Family Medicine 08/12/22 Wander Joiner DO [address] [place] [phone] Consulting Physician Oncology 08/08/22 Anuj Choudhary [address] [place] [address] Family Medicine 08/12/22 documented as of this encounter
--- OUTSIDE RECORDS SUMMARY | 2024-11-03 09:44 | XMS_ITS | Clinical Summary ---
Author Organization [facility] Address [facility] [place] [address] Care Team Providers Care Band Manager Name Role Phone Anuj Choudhary MD Primary Care Provider [phone] Social History Tobacco Use Types Packs/Day Years [...] (General) 2021 COVID-19 Vaccine (2023-2 5 season) 2024 RSV Immunization or 60+ Years (1 - [...] age to complete this topic Care Teams Band Manager Relationship Specialty Start Date End Date Anuj Choudhary MD PCP - General 01/15/16
== END 2024-11-03 09:24 | disposition home or self-care (01) ==
PROVIDERS: PCP Family Medicine; Visit Provider Family Medicine
DX: S09.90XA Unspecified injury of head, initial encounter (principal); X58.XXXA Exposure to other specified factors, initial encounter; R93.0 Abnormal findings on diagnostic imaging of skull and head, not elsewhere classified
CPT/HCPCS: 70450

== ENCOUNTER 2024-11-30 10:17 | Outpatient (CLI) | payer MEDICARE, SELFPAY ==
[2024-11-30 10:53] LABS: Hematocrit 49.8 % (37.0-47.0); Hemoglobin 17.4 g/dL (12.0-15.0); Immature Granulocyte Percent A 0.2 % (0-0.5); Lymphocytes Absolute Auto 2.46 K/mm3 (0.9-3.2); Mean Corpuscular HGB Conc 34.9 g/dl (32-36); Mean Corpuscular Hemoglobin 35.0 pg (26-34); Mean Corpuscular Volume 100.2 fl (80-100); Nucleated Red Blood Cells Absolute Auto 0.000 K/mm3 (0.0-0.012); Nucleated Red Blood Cells Perc 0.0 % (0.0-0.2); Platelet Count Result 236 k/mm3 (150-375); Red Blood Count 4.97 M/mm3 (4.2-5.4); White Blood Count 5.3 K/mm3 (4.5-10.0)
--- OUTSIDE RECORDS SUMMARY | 2024-11-30 11:04 | XMS_ITS | Clinical Summary ---
Author Organization [facility] Allan Isbell Address [address] [facility] [address] Care Team Providers Care Warp Dresser Name Role Phone Wander Velasquez MD Primary Care Provider [phone] Allergies Active Allergy Reactions Criticality Noted Date [...] Encounters Date Type Department Care Team Description 11/15/2024 External Device Data STL ABSTRACTION Provider, Abstract [...] on file Legal Sex Female 11:21 AM LASER TECHNICIAN Gender Identity Not on file Sexual [...] 165.1 cm (5' 5) 03/04/2024 10:29 AM LASER TECHNICIAN Body Mass Index 32.05 03/04/2024 10:29 AM LASER TECHNICIAN Plan of Treatment Upcoming Encounters Date Type Department Care Team (Late st Contact Info) Description 01/13/2025 9:15 AM LASER TECHNICIAN Office Visit [facility] Oncology and Hematology - [place] [address] [place] [address] Ethan Santos MD [address] [facility] [address] [place] [address] Health Maintenance Due Date Last [...] 75+ series) 11/25/2031 Insurance AETNA O [facility] Address: [facility] [address] [place] [address] Care Teams Warp Dresser Relationship Specialty Start Date End Date Wander Velasquez MD [address] [place] [address] PCP - General Family Practice 03/04/24
--- OUTSIDE RECORDS SUMMARY | 2024-11-30 11:04 | XMS_ITS | Clinical Summary ---
Author Organization [facility] [employer] Address [address] [place] [address] Care Team Providers Care Hair Spinning Machine Operator Name Role Phone Anuj Choudhary MD Primary Care Provider [phone] Source Comments [facility] [employer],non-owned Affiliates and Associated Physician Practices is amultiple site organization consisting of ambulatory clinics and hospital sitesin [place], [place], [place]. This disclosure is being madepursuant to the Care Everywhere program and may not contain all information available regarding this patient. Last updated 17.[facility] [employer] Allergies Active Allergy Reactions Criticality Noted Date [...] Take 1 tablet by mouth 1 Active Connelly-3 Fatty Acids (FISH OIL) 1000 MG capsule [...] on file Legal Sex Female 5:48 PM MEDICAL CHARGE ENTRY SPECIALIST Gender Identity Not on file Sexual Orientation Not on file Last Filed Vital Signs Vital Sign Reading Time Taken Comments Blood Pressure 125/71 08/30/2021 10:02 AM CDT Pulse 72 08/30/2021 10:02 AM CDT Temperature 36.2 C (97.2 F) 03/03/2019 8:30 AM MEDICAL CHARGE ENTRY SPECIALIST Respiratory Rate 11 05/15/2016 2:45 PM CDT Oxygen Saturation 98% 08/30/2021 10:02 AM CDT Inhaled Oxygen Concentration - - Weight 95.7 kg (211 lb) 02/26/2018 8:06 AM MEDICAL CHARGE ENTRY SPECIALIST Height 165.1 cm (5' 5) 02/26/2018 8:06 AM MEDICAL CHARGE ENTRY SPECIALIST Body Mass Index 35.11 02/26/2018 8:06 AM MEDICAL CHARGE ENTRY SPECIALIST Plan of Treatment Health Maintenance Due Date [...] patient's age to complete this topic Insurance [facility] AETNA MEDICARE ADV SELF PAY NO INSURANCE Member Subscriber Plan / Payer (Ef fective for All Dates) Name:Tawanna Jones Member ID:Not on file Relation to Subscriber:Not on file Name:TAWANNA JONES Subscriber ID:Not on file (Home) Address: [address] [place] [address] Payer ID:Not on file Group ID:Not on file Type:Self Pay Address: [place], [place] MEDICAID - OUT OF STATE Advance Directives * Full Code (Latest Code Status on File) Date Activated Date Inactivated Comments 03/21/2016 6:54 PM 03/22/2016 3:04 PM Care Teams Hair Spinning Machine Operator Relationship Specialty Start Date End Date Anuj Choudhary MD [address] [facility] [address] [place] [phone] PCP - General Family Medicine 03/11/16
--- OUTSIDE RECORDS SUMMARY | 2024-11-30 11:04 | XMS_ITS | Clinical Summary ---
Author Organization [facility] Address [facility] [place] [address] Care Team Providers Care Felt Strip Finisher Name Role Phone Anuj Choudhary MD Primary Care Provider [phone] Social History Tobacco Use Types Packs/Day Years [...] age to complete this topic Care Teams Felt Strip Finisher Relationship Specialty Start Date End Date Anuj Choudhary MD PCP - General 01/15/16
--- OUTSIDE RECORDS SUMMARY | 2024-11-30 11:04 | XMS_ITS | Encounter Summary ---
Author Organization [facility] Address [address] [place] [address] Care Team Providers Care Network Operations Specialist Name Role Phone Anuj Choudhary MD Primary Care Provider [phone] Encounter Details Date Type Department Care Team (Late st Contact Info) Description 07/21/2024 Lab Requisition [facility] - DermPath Lab [address] [place] [address] Jose A Gage MD [facility] DERMATOLOGY [address] [place] [address] Neoplasm of uncertain behavior of skin; Other pruritus Social History Tobacco Use Types Packs/Day Years Used Date Smoking Tobacco: Every Day Cigarettes Smokeless Tobacco: Never Alcohol Use Standard Drinks/Week Comments No 0 (1 standard drink = 0.6 oz pur e alcohol) Comments No Sex and Gender Information Value Date Recorded Sex Assigned at Not on file Legal Sex Female 5:48 PM STRING CUTTER Gender Identity Not on file Sexual Orientation Not on file documented as of this encounter Functional Status * Is person deaf or have serious hearing difficulty? Answer Date of Assessment Author No 03/21/2016 10:25 AM STRING CUTTER Rosy Wagner RN * Is person blind [...] AM CDT) Case Report Dermatopathology Report Case: [id number] Authorizing Provider: Jose A Gage MD Collected: 07/21/2024 10:49 AM Ordering Location: [facility] - Received: 07/26/2024 06:58 AM [...] characteristic determined by the Dermatopathology Laboratory at [facility], directed by Dr. Kris Fernández. These tests need not be, and therefore are not, approved by the [place] Food and Drug Administration. The tests are used for clinical purposes. Billing Codes Specimen Charges Stain Charges 74665 1 1:54 PM CDT DERMATOPATHOLOGY LABORATORY Embedded Images 1:54 PM CDT DERMATOPATHOLOGY LABORATORY Pathology/Cytolo gy TISSUE SPECIMEN FROM SKIN / Unknown 07/21/2024 10:49 AM CDT 07/26/2024 6:58 AM CDT Jose A Gage MD LAB - PATHOLOGY/CYTOLOGY ORDE LUIS Final Result DERMATOPATHOLOGY LABORATORY [facility] Department of Dermatology [facility] Medicine [address] [place] [address], [address] [phone] documented in this encounter Visit Diagnoses Diagnosis Neoplasm of uncertain behavior of skin Other pruritus documented in this encounter Care Teams Network Operations Specialist Relationship Specialty Start Date End Date Anuj Choudhary MD [address] [facility] [address] [address] PCP - General Family Medicine 03/11/16 documented as of this encounter
--- OUTSIDE RECORDS SUMMARY | 2024-11-30 11:04 | XMS_ITS | Clinical Summary ---
Author Organization [facility] Address [address] [place] [address] Phone Care Team Providers Care Warehouse Specialist Name Role Phone Wander Joiner DO Unavailable [phone] Guilherme Felix MD Primary Care Provider [phone] Anuj Choudhary Unavailable Allergies Active Allergy Reactions Criticality Noted Date Comments Iron Rash 01/15/2016 Medications metFORMIN (GLUCOPHAGE) 500 MG Tablet Take 1 Tablet by mouth. 1 Active Evans-3 Fatty Acids (fish oil) 1200 MG Capsule [...] mouth. Active Cholecalciferol (Vitamin D3) 1.25 MG (29415 UT) Capsule TAKE 1 CAPSULE BY MOUTH [...] on file Legal Sex Female 11:37 AM SMOKE CONTROL SUPERVISOR Gender Identity Not on file Sexual Orientation [...] Screening 2001 Immunochemical Fecal Occult Blood 2001 Medicare Initial AWV [id number] 12/31/2022 Influenza Immunization (#1) 2024 09/0 08/2022, 12/09/2021, [...] to complete this topic Insurance MEDICARE C [facility] [place] [address] Care Teams Warehouse Specialist Relationship Specialty Start Date End Date Guilherme Felix MD [address] [place] [address] PCP - General Family Medicine 08/12/22 Wander Joiner DO [address] [place] [phone] Consulting Physician Oncology 08/08/22 Anuj Choudhary [address] [place] [address] Family Medicine 08/12/22
--- OUTSIDE RECORDS SUMMARY | 2024-11-30 11:04 | XMS_ITS | Encounter Summary ---
Author Organization [facility] Address [address] [place] [address] Phone Care Team Providers Care Lead Php Developer Name Role Phone Wander Joiner DO Unavailable [phone] Guilherme Felix MD Primary Care Provider [phone] Anuj Choudhary Unavailable Encounter Details Date Type Department Care Team (Late st Contact Info) Description 08/02/2024 Telephone [facility] [address] [place] [address] Wander Joiner, DO [address] [place] [address] Social History Tobacco Use Types [...] on file Legal Sex Female 11:37 AM BEHAVIOR MANAGEMENT SPECIALIST Gender Identity Not on file Sexual Orientation Not on file documented as of this encounter Miscellaneous Notes * Telephone Encounter - Rosy Hall - 08/02/2024 8:54 AM CDT FYI: Patient has decided to go see a loom fixer apprentice that her pcp is sending her to in [place]. F/U appt has been cancelled. documented in this encounter Plan of Treatment Not on file documented as of this encounter Visit Diagnoses Not on filedocumented in this encounter Additional Health Concerns Assessment Noted Time PHQ-9 Depression Total Score: 0 05/07/19 17 9:54 AM BEHAVIOR MANAGEMENT SPECIALIST documented as of this encounter Care Teams Lead Php Developer Relationship Specialty Start Date End Date Guilherme Felix MD [address] [place] [address] PCP - General Family Medicine 08/12/22 Wander Joiner DO [address] [place] [phone] Consulting Physician Oncology 08/08/22 Anuj Choudhary [address] [place] [address] Family Medicine 08/12/22 documented as of this encounter
[2024-11-30 11:11] LABS: MALB Creatinine Ratio 5.3 mg/g (0-30)
[2024-11-30 11:13] LABS: Hemoglobin A1C 5.6 % (<5.7)
[2024-11-30 11:18] LABS: Alanine Aminotransferase 16 U/L (6-35); Albumin Level 4.2 g/dL (3.5-5.1); Alkaline Phosphatase 84 U/L (38-126); Anion Gap 8 mmol/L (4-12); Aspartate Amino Transferase 25 U/L (14-36); Bilirubin,Total 0.7 mg/dL (0.2-1.3); Blood Urea Nitrogen 18 mg/dL (7-17); Calcium 9.0 mg/dL (8.4-10.2); Carbon Dioxide 23 mmol/L (22-30); Chloride 105 mmol/L (98-107); Estimated Glomerular Filt Rate > 60; Glucose 91 mg/dL (65-110); Potassium 4.6 mmol/L (3.4-5.0); Sodium 136 mmol/L (137-145); Total Protein 7.5 g/dL (6.3-8.2)
[2024-11-30 12:16] LABS: Vitamin B12 510.0 pg/mL (239-931)
== END 2024-11-30 10:18 | disposition home or self-care (01) ==
PROVIDERS: PCP Family Medicine; Visit Provider Family Medicine
DX: I10 Essential (primary) hypertension (principal); I25.10 Atherosclerotic heart disease of native coronary artery without angina pectoris; I65.29 Occlusion and stenosis of unspecified carotid artery; E11.9 Type 2 diabetes mellitus without complications; E55.9 Vitamin D deficiency, unspecified
CPT/HCPCS: 36415; 80053; 82043; 82306; 82607; 83036; 85025

== ENCOUNTER 2024-12-12 06:46 | Outpatient (CLI) | payer MEDICARE, MEDICAID, SELFPAY ==
--- OUTSIDE RECORDS SUMMARY | 2006-10-22 12:11 | XMS_ITS | Continuity of Care Document ---
Author Organization [facility] Address [address] [place] [address] [address] [place] [address] Phone Care Team Providers Care Meat Scrubber Name Role Phone Brown OD, Agapito Unavailable Unavailable Procedures Procedure Date Office/outpatient Visit, Est Office/outpatient Visit, Est Advance Directives Directive Yes / No Effective Date File Name No Information Encounters Encounter Description Practice Location Reason(s) For Visit Diagnoses Date Provider Providers Copied on Encounter Office/outpat ient Visit, [facility], [address] [place] [address] [address], [place], [place], [id number], tel:[phone] [facility] No Information 3-200 7 Brown OD Agapito. [address] , [address], [place], [place], [facility], . tel:[phone] Office/outpat ient Visit, [facility], [address] [place] [address] [address], [place], [place], [id number], tel:[phone] [facility] No Information 6-200 7 Brown OD Agapito. [address] , [address], [place], [address], [place]. tel:[phone] Referring Provider: Low Bui MD , [address] [facility] [address], [place], [address]. tel:[phone] Family History Family Member Type Diagnosis Age [...]
--- NOTE | ~2024-12-12 | CT_ITS ---
EXAMINATION:CT lung screening DATE: 12/12/2024 07:11 INDICATION: Personal history of nicotine dependence. TECHNIQUE: Computed tomography (CT) of the chest was performed without intravenous contrast. Automated exposure control and iterative reconstruction technique were employed. The dose-length product (DLP) was 104.83 mGy-cm. COMPARISON: Chest CT 01/16/2023 FINDINGS: The lungs demonstrate mild emphysema. There is a 2 mm nodule in left upper lobe. There is mild atelectasis bilaterally. A calcified left lung nodule is consistent with old granulomatous disease. No pleural effusion. The heart size is normal. There are coronary artery calcifications. No pericardial effusion. There are bridging endplate osteophytes at multiple levels in the spine, consistent with diffuse idiopathic skeletal hyperostosis (DISH). IMPRESSION: 1. Lung-RADS category 2: Benign appearance or behavior. Continue annual screening with noncontrast low-dose chest CT in 12 months. Reviewed, dictated and finalized at location E. IMPRESSION: 1. Lung-RADS category 2: Benign appearance or behavior. Continue annual screeni ng with noncontrast low-dose chest CT in 12 months.
--- OUTSIDE RECORDS SUMMARY | 2024-12-12 06:48 | XMS_ITS | Encounter Summary ---
Author Organization [facility] Address [address] [place] [address] Phone Care Team Providers Care Critical Care Technician Name Role Phone Wander Joiner DO Unavailable [phone] Guilherme Felix MD Primary Care Provider [phone] Anuj Choudhary Unavailable Encounter Details Date Type Department Care Team (Late st Contact Info) Description 08/02/2024 Telephone [facility] [address] [place] [address] Wander Joiner, DO [address] [place] [address] Social History Tobacco Use Types [...] on file Legal Sex Female 11:37 AM SOLDER CREAM MAKER Gender Identity Not on file Sexual Orientation Not on file documented as of this encounter Miscellaneous Notes * Telephone Encounter - Rosy Hall - 08/02/2024 8:54 AM CDT FYI: Patient has decided to go see a overcoiler that her pcp is sending her to in [place]. F/U appt has been cancelled. documented in this encounter Plan of Treatment Not on file documented as of this encounter Visit Diagnoses Not on filedocumented in this encounter Additional Health Concerns Assessment Noted Time PHQ-9 Depression Total Score: 0 05/07/19 17 9:54 AM SOLDER CREAM MAKER documented as of this encounter Care Teams Critical Care Technician Relationship Specialty Start Date End Date Guilherme Felix MD [address] [place] [address] PCP - General Family Medicine 08/12/22 Wander Joiner DO [address] [place] [phone] Consulting Physician Oncology 08/08/22 Anuj Choudhary [address] [place] [address] Family Medicine 08/12/22 documented as of this encounter
--- OUTSIDE RECORDS SUMMARY | 2024-12-12 06:48 | XMS_ITS | Clinical Summary ---
Author Organization [facility] Allan Isbell Address [address] [facility] [address] Care Team Providers Care Log Grader Name Role Phone Wander Velasquez MD Primary Care Provider [phone] Allergies Active Allergy Reactions Criticality Noted Date [...] Date Smoking Tobacco: Every Day Cigarettes 0.5 51.8 Started: 1972 Smokeless Tobacco: Never Tobacco Cessation:Ready to Q uit: Not Asked; Counseling Given: Not Answered Alcohol Use Standard Drinks/Week Comments Never 0 (1 standard drink = 0.6 oz pur e alcohol) Comments Unknown Sex and Gender Information Value Date Recorded Sex Assigned at Not on file Legal Sex Female 11:21 AM GROUND HOST/HOSTESS Gender Identity Not on file Sexual Orientation [...] 165.1 cm (5' 5) 03/04/2024 10:29 AM GROUND HOST/HOSTESS Body Mass Index 32.05 03/04/2024 10:29 AM GROUND HOST/HOSTESS Plan of Treatment Upcoming Encounters Date Type Department Care Team (Late st Contact Info) Description 01/13/2025 9:15 AM GROUND HOST/HOSTESS Office Visit [facility] Oncology and Hematology - [place] [address] [place] [address] Ethan Santos MD [address] [facility] [address] [place] [address] Health Maintenance Due Date Last [...] 75+ series) 11/25/2031 Insurance AETNA O MCR Care Teams Log Grader Relationship Specialty Start Date End Date Wander Velasquez MD [address] [place] [phone] PCP - General Family Practice 03/04/24
--- OUTSIDE RECORDS SUMMARY | 2024-12-12 06:48 | XMS_ITS | Encounter Summary ---
Author Organization [facility] Address [address] [place] [address] Care Team Providers Care Scientific Linguist Name Role Phone Anuj Choudhary MD Primary Care Provider [phone] Encounter Details Date Type Department Care Team (Late st Contact Info) Description 07/21/2024 Lab Requisition [facility] - DermPath Lab [address] [place] [address] Jose A Gage MD [facility] DERMATOLOGY [address] [place] [address] Neoplasm of uncertain behavior of skin; Other pruritus Social History Tobacco Use Types Packs/Day Years Used Date Smoking Tobacco: Every Day Cigarettes Smokeless Tobacco: Never Alcohol Use Standard Drinks/Week Comments No 0 (1 standard drink = 0.6 oz pur e alcohol) Comments No Sex and Gender Information Value Date Recorded Sex Assigned at Not on file Legal Sex Female 5:48 PM ACROBATIC DANCER Gender Identity Not on file Sexual Orientation Not on file documented as of this encounter Functional Status * Is person deaf or have serious hearing difficulty? Answer Date of Assessment Author No 03/21/2016 10:25 AM ACROBATIC DANCER Rosy Wagner RN * Is person blind [...] AM CDT) Case Report Dermatopathology Report Case: [id number] Authorizing Provider: Jose A Gage MD Collected: 07/21/2024 10:49 AM Ordering Location: [facility] - Received: 07/26/2024 06:58 AM [...] characteristic determined by the Dermatopathology Laboratory at [facility], directed by Dr. Kris Fernández. These tests need not be, and therefore are not, approved by the [place] Food and Drug Administration. The tests are used for clinical purposes. Billing Codes Specimen Charges Stain Charges 55818 1 1:54 PM CDT DERMATOPATHOLOGY LABORATORY Embedded Images 1:54 PM CDT DERMATOPATHOLOGY LABORATORY Pathology/Cytolo gy TISSUE SPECIMEN FROM SKIN / Unknown 07/21/2024 10:49 AM CDT 07/26/2024 6:58 AM CDT Jose A Gage MD LAB - PATHOLOGY/CYTOLOGY ORDE LUIS Final Result DERMATOPATHOLOGY LABORATORY [facility] Department of Dermatology [facility] Medicine [address] [place] [address], [address] [phone] documented in this encounter Visit Diagnoses Diagnosis Neoplasm of uncertain behavior of skin Other pruritus documented in this encounter Care Teams Scientific Linguist Relationship Specialty Start Date End Date Anuj Choudhary MD [address] [facility] [address] [address] PCP - General Family Medicine 03/11/16 documented as of this encounter
--- OUTSIDE RECORDS SUMMARY | 2024-12-12 06:48 | XMS_ITS | Clinical Summary ---
Author Organization [facility] [employer] Address [address] [facility] [address] Care Team Providers Care Bricklayer Name Role Phone Anuj Choudhary MD Primary Care Provider [phone] Source Comments [facility] [employer],non-owned Affiliates and Associated Physician Practices is amultiple site organization consisting of ambulatory clinics and hospital sitesin [place], [place], [place] and [place]. This disclosure is being madepursuant to the Care Everywhere program and may not contain all information available regarding this patient. Last updated 17.[facility] [employer] Allergies Active Allergy Reactions Criticality Noted Date [...] Take 1 tablet by mouth 1 Active Ten Sleep-3 Fatty Acids (FISH OIL) 1000 MG capsule [...] on file Legal Sex Female 5:48 PM ADULT EDUCATION PROFESSIONAL Gender Identity Not on file Sexual Orientation Not on file Last Filed Vital Signs Vital Sign Reading Time Taken Comments Blood Pressure 125/71 08/30/2021 10:02 AM CDT Pulse 72 08/30/2021 10:02 AM CDT Temperature 36.2 C (97.2 F) 03/03/2019 8:30 AM ADULT EDUCATION PROFESSIONAL Respiratory Rate 11 05/15/2016 2:45 PM CDT Oxygen Saturation 98% 08/30/2021 10:02 AM CDT Inhaled Oxygen Concentration - - Weight 95.7 kg (211 lb) 02/26/2018 8:06 AM ADULT EDUCATION PROFESSIONAL Height 165.1 cm (5' 5) 02/26/2018 8:06 AM ADULT EDUCATION PROFESSIONAL Body Mass Index 35.11 02/26/2018 8:06 AM ADULT EDUCATION PROFESSIONAL Plan of Treatment Health Maintenance Due Date [...] patient's age to complete this topic Insurance [facility] AETNA MEDICARE ADV SELF PAY NO INSURANCE Member Subscriber Plan / Payer (Ef fective for All Dates) Name:Tawanna Jones Member ID:Not on file Relation to Subscriber:Not on file Name:TAWANNA JONES Subscriber ID:Not on file (Home) Address: [address] [place] [phone] Payer ID:Not on file Group ID:Not on file Type:Self Pay Address: [place], [place] MEDICAID - OUT OF STATE Advance Directives * Full Code (Latest Code Status on File) Date Activated Date Inactivated Comments 03/21/2016 6:54 PM 03/22/2016 3:04 PM Care Teams Bricklayer Relationship Specialty Start Date End Date Anuj Choudhary MD [address] [facility] [address] [place] [phone] PCP - General Family Medicine 03/11/16
--- OUTSIDE RECORDS SUMMARY | 2024-12-12 06:48 | XMS_ITS | Clinical Summary ---
Author Organization [facility] Address [address] [place] [address] Phone Care Team Providers Care Tunnel Elastic Operator Chainstitch Name Role Phone Wander Joiner DO Unavailable [phone] Guilherme Felix MD Primary Care Provider [phone] Anuj Choudhary Unavailable Allergies Active Allergy Reactions Criticality Noted Date Comments Iron Rash 01/15/2016 Medications metFORMIN (GLUCOPHAGE) 500 MG Tablet Take 1 Tablet by mouth. 1 Active [place]-3 Fatty Acids (fish oil) 1200 MG Capsule [...] mouth. Active Cholecalciferol (Vitamin D3) 1.25 MG (74346 UT) Capsule TAKE 1 CAPSULE BY MOUTH [...] on file Legal Sex Female 11:37 AM GENERAL FORECASTER Gender Identity Not on file Sexual Orientation [...] to complete this topic Insurance MEDICARE C [facility] Care Teams Tunnel Elastic Operator Chainstitch Relationship Specialty Start Date End Date Guilherme Felix MD [address] [place] [address] PCP - General Family Medicine 08/12/22 Wander Joiner DO [address] [place] [phone] Consulting Physician Oncology 08/08/22 Anuj Choudhary [address] [place] [address] Family Medicine 08/12/22
--- OUTSIDE RECORDS SUMMARY | 2024-12-12 06:48 | XMS_ITS | Clinical Summary ---
Author Organization [facility] Address [facility] [place] [address] Care Team Providers Care Pastry Mixer Name Role Phone Anuj Choudhary MD Primary Care Provider [phone] Social History Tobacco Use Types Packs/Day Years [...] 2006 Dexa Scan (General) 2021 COVID-19 Vaccine ( - 2023-2 5 season) 2024 Influenza Adult (#1) 2024 RSV Immunization or 60+ Years (1 [...] age to complete this topic Care Teams Pastry Mixer Relationship Specialty Start Date End Date Anuj Choudhary MD PCP - General 01/15/16
== END 2024-12-12 06:47 | disposition home or self-care (01) ==
PROVIDERS: PCP Family Medicine; Visit Provider Family Medicine
DX: Z12.2 Encounter for screening for malignant neoplasm of respiratory organs (principal); Z87.891 Personal history of nicotine dependence
CPT/HCPCS: 71271

== ENCOUNTER 2024-12-25 07:45 | Outpatient (CLI) | payer MEDICARE, MEDICAID, SELFPAY ==
--- OUTSIDE RECORDS SUMMARY | 2006-10-22 12:11 | XMS_ITS | Continuity of Care Document ---
Author Organization [facility] Address [address] [place] [address] [address] [place] [address] Phone Care Team Providers Care Extruder Operator Name Role Phone Brown OD, Agapito Unavailable Unavailable Procedures Procedure Date Office/outpatient Visit, Est Office/outpatient Visit, Est Advance Directives Directive Yes / No Effective Date File Name No Information Encounters Encounter Description Practice Location Reason(s) For Visit Diagnoses Date Provider Providers Copied on Encounter [place] [facility] [place] [address] [place] [address] [address], [place], [place], [id number], tel:[phone] [facility] No Information 3-200 7 Brown OD Agapito. [address] , [address], [place], [place], [facility], . tel:[phone] Office[place]pat ient [place] [facility] [address] [place] [address] [address], [place], [place], [id number], tel:[phone] [facility] No Information 6-200 7 Brown OD Agapito. [address] , [address], [place], [address], [place]. tel:[phone] Referring Provider: Low Bui MD , [address] [facility] [address], [place], [address]. tel:[phone] Family History Family Member Type Diagnosis Age At Onset No Information Payers Payer name Insurance type Covered democrat ID Authoriza tion(s) No Information Social History [...]
--- NOTE | ~2024-12-25 | MR_ITS ---
EXAMINATION: MRA brain wo con DATE: 12/25/2024 08:30 INDICATION: Dizziness and giddiness. TECHNIQUE: Magnetic resonance angiography (MRA) of the brain was performed without intravenous contrast with T1-weighted SPGR by the 3D yfea-pv-ectehr technique. Maximum intensity projection 3D-reconstructions were obtained. COMPARISON: Brain MRI 05/18/2024, head CT 11/03/2024 FINDINGS: The left vertebral artery is dominant. There is no significant stenosis of basilar artery or the posterior cerebral arteries. There is no significant stenosis of the intracranial internal carotid arteries or anterior or middle cerebral arteries. Anterior communicating artery is normal. The posterior co mmunicating arteries are normal. There is no aneurysm. IMPRESSION: 1. Normal MRA. Reviewed, dictated and finalized at location E. IMPRESSION: 1. Normal MRA.
--- OUTSIDE RECORDS SUMMARY | 2024-12-25 07:49 | XMS_ITS | Clinical Summary ---
Author Organization [facility] Address [address] [place] [address] Care Team Providers Care Civil Engineering Specialist Name Role Phone Anuj Choudhary MD Primary Care Provider [phone] Source Comments [facility],non-owned Affiliates and Associated Physician Practices is amultiple site organization consisting of ambulatory clinics and hospital sitesin [place], [place], [place] and [place]. This disclosure is being madepursuant to the Care Everywhere program and may not contain all information available regarding this patient. Last updated 17.[facility] Allergies Active Allergy Reactions Criticality Noted Date [...] Take 1 tablet by mouth 1 Active [place]-3 Fatty Acids (FISH OIL) 1000 MG capsule [...] on file Legal Sex Female 5:48 PM HOSPITAL PRODUCT SPECIALIST Gender Identity Not on file Sexual Orientation Not on file Last Filed Vital Signs Vital Sign Reading Time Taken Comments Blood Pressure 125/71 08/30/2021 10:02 AM CDT Pulse 72 08/30/2021 10:02 AM CDT Temperature 36.2 C (97.2 F) 03/03/2019 8:30 AM HOSPITAL PRODUCT SPECIALIST Respiratory Rate 11 05/15/2016 2:45 PM CDT Oxygen Saturation 98% 08/30/2021 10:02 AM CDT Inhaled Oxygen Concentration - - Weight 95.7 kg (211 lb) 02/26/2018 8:06 AM HOSPITAL PRODUCT SPECIALIST Height 165.1 cm (5' 5) 02/26/2018 8:06 AM HOSPITAL PRODUCT SPECIALIST Body Mass Index 35.11 02/26/2018 8:06 AM HOSPITAL PRODUCT SPECIALIST Plan of Treatment Health Maintenance Due [...] patient's age to complete this topic Insurance [facility] AETNA MEDICARE ADV SELF PAY NO INSURANCE Member Subscriber Plan / Payer (Ef fective for All Dates) Name:Tawanna Jones Member ID:Not on file Relation to Subscriber:Not on file Name:TAWANNA JONES Subscriber ID:Not on file (Home) Address: [address] [place] [phone] Payer ID:Not on file Group ID:Not on file Type:Self Pay Address: [place], [place] MEDICAID - OUT OF STATE Advance Directives * Full Code (Latest Code Status on File) Date Activated Date Inactivated Comments 03/21/2016 6:54 PM 03/22/2016 3:04 PM Care Teams Civil Engineering Specialist Relationship Specialty Start Date End Date Anuj Choudhary MD [address] [facility] [address] [place] [phone] PCP - General Family Medicine 03/11/16
--- OUTSIDE RECORDS SUMMARY | 2024-12-25 07:49 | XMS_ITS | Encounter Summary ---
Author Organization [facility] Address [address] [place] [address] Phone Care Team Providers Care Electrical Systems Engineer Name Role Phone Wander Joiner DO Unavailable [phone] Guilherme Felix MD Primary Care Provider [phone] Anuj Choudhary Unavailable Encounter Details Date Type Department Care Team (Late st Contact Info) Description 08/02/2024 Telephone [facility] [address] [place] [address] Wander Joiner, DO [address] [place] [address] Social History Tobacco Use Types [...] on file Legal Sex Female 11:37 AM TIE KNITTER HELPER Gender Identity Not on file Sexual Orientation Not on file documented as of this encounter Miscellaneous Notes * Telephone Encounter - Rosy Hall - 08/02/2024 8:54 AM CDT FYI: Patient has decided to go see a wrister that her pcp is sending her to in [place]. F/U appt has been cancelled. documented in this encounter Plan of Treatment Not on file documented as of this encounter Visit Diagnoses Not on filedocumented in this encounter Additional Health Concerns Assessment Noted Time PHQ-9 Depression Total Score: 0 05/07/19 17 9:54 AM TIE KNITTER HELPER documented as of this encounter Care Teams Electrical Systems Engineer Relationship Specialty Start Date End Date Guilherme Felix MD [address] [place] [address] PCP - General Family Medicine 08/12/22 Wander Joiner DO [address] [place] [phone] Consulting Physician Oncology 08/08/22 Anuj Choudhary [address] [place] [address] Family Medicine 08/12/22 documented as of this encounter
--- OUTSIDE RECORDS SUMMARY | 2024-12-25 07:49 | XMS_ITS | Clinical Summary ---
Author Organization [facility] Address [facility] [place] [address] Care Team Providers Care Manager Car Name Role Phone Anuj Choudhary MD Primary Care Provider [phone] Social History Tobacco Use Types Packs/Day Years [...] Scan (General) 2021 COVID-19 Vaccine ( - 2024-2 6 season) 2024 Influenza Adult (#1) 2024 RSV Immunization or 60+ Years (1 - 1-dose 75+ series) 11/25/2031 Hepatitis A Vaccines Aged Out No long er eligible based on patient's age to complete this topic Meningococcal B Vaccine Aged Out No l onger eligible based on patient's age to complete this topic Meningococcal Vaccine Aged Out No дмитрий rowan eligible based on patient's age to complete this topic RSV Immunizations Under 20 Months Aged Out No longer eligible based on patient's age to complete this topic Care Teams Manager Car Relationship Specialty Start Date End Date Anuj Choudhary MD PCP - General 01/15/16
--- OUTSIDE RECORDS SUMMARY | 2024-12-25 07:50 | XMS_ITS | Clinical Summary ---
Author Organization [facility] Address [address] [place] [address] Care Team Providers Care Mincing Machine Operator Name Role Phone Wander Velasquez MD Primary Care Provider [phone] Allergies Active Allergy Reactions Criticality Noted Date [...] Encounters Date Type Department Care Team Description 12/21/2024 External Device Data STL ABSTRACTION Provider, Abstract 12/20/2024 External Device Data STL ABSTRACTION Provider, Abstract 11/15/2024 External Device Data STL ABSTRACTION Provider, [...] on file Legal Sex Female 11:21 AM CORPORATE RISK ANALYST Gender Identity Not on file Sexual [...] 165.1 cm (5' 5) 03/04/2024 10:29 AM CORPORATE RISK ANALYST Body Mass Index 32.05 03/04/2024 10:29 AM CORPORATE RISK ANALYST Plan of Treatment Upcoming Encounters Date Type Department Care Team (Late st Contact Info) Description 01/13/2025 9:15 AM CORPORATE RISK ANALYST Office Visit [facility] Oncology and Hematology - [place] [address] [place] [address] Ethan Santos MD [address] [facility] [address] [place] [address] Health Maintenance Due Date Last [...] [facility] Address[facility] [address] [place] [address] Care Teams Mincing Machine Operator Relationship Specialty Start Date End Date Wander Velasquez MD [address] [place] [phone] PCP - General Family Practice 03/04/24
--- OUTSIDE RECORDS SUMMARY | 2024-12-25 07:50 | XMS_ITS | Clinical Summary ---
Author Organization [facility] Address [address] [place] [address] Phone Care Team Providers Care Wood Heel Flap Inserter Name Role Phone Wander Joiner DO Unavailable [phone] Guilherme Felix MD Primary Care Provider [phone] Anuj Choudhary Unavailable Allergies Active Allergy Reactions Criticality Noted Date Comments Iron Rash 01/15/2016 Medications metFORMIN (GLUCOPHAGE) 500 MG Tablet Take 1 Tablet by mouth. 1 Active [place]-3 Fatty Acids (fish oil) 1200 MG Capsule [...] mouth. Active Cholecalciferol (Vitamin D3) 1.25 MG (99404 UT) Capsule TAKE 1 CAPSULE BY MOUTH [...] on file Legal Sex Female 11:37 AM CIGAR PACKING EXAMINER Gender Identity Not on file Sexual Orientation [...] to complete this topic Insurance MEDICARE C [facility] [place] [address] Care Teams Wood Heel Flap Inserter Relationship Specialty Start Date End Date Guilherme Felix MD [address] [place] [address] PCP - General Family Medicine 08/12/22 Wander Joiner DO [address] [place] [phone] Consulting Physician Oncology 08/08/22 Anuj Choudhary [address] [place] [address] Family Medicine 08/12/22
== END 2024-12-25 07:46 | disposition home or self-care (01) ==
PROVIDERS: PCP Family Medicine; Visit Provider Family Medicine
DX: R42 Dizziness and giddiness (principal)
CPT/HCPCS: 70544

== ENCOUNTER 2024-12-29 16:29 | Outpatient (CLI) | payer MEDICARE, MEDICAID, SELFPAY ==
--- NOTE | ~2024-12-29 | US_ITS ---
EXAMINATION: US carotid duplex BI DATE: 12/29/2024 17:12 INDICATION: Cervicalgia. Carotid atherosclerosis and stenosis on prior imaging. TECHNIQUE: Grayscale, color Doppler, and pulsed Doppler images of the cervical carotid arteries were obtained. The degree of vessel stenosis is placed in one of the following categories: normal, <50%, 50-69%, >=70% but less than near- occlusion, near-occlusion, or total occlusion. Note that percent stenosis relative to normal distal artery lumen diameter is indirectly measured from velocity measurements as described by Sumit, et al. Radiology 2003; 229:340-346. COMPARISON: Ultrasound dated 04/25/2024 FINDINGS: RIGHT: The right common carotid artery (CCA) peak systolic velocity (PSV) is 75 cm/s. The right internal carotid artery (ICA) PSV is 154 cm/s. The right ICA end- diastolic velocity (EDV) is 42 cm/s. The right ICA/CCA PSV ratio is 2.0. Grayscale and color Doppler images yield an estimate of 50-69% diameter redu ction from plaque in the ICA. The external carotid artery (ECA) PSV is 137 cm/s. There is antegrade flow in the right vertebral artery. LEFT: The left CCA PSV is 104 cm/s. The left ICA PSV is 109 cm/s. The left ICA EDV is 31 cm/s. The left ICA/CCA PSV ratio is 1.3. Grayscale and color Doppler images yield an estimate of <50% diameter reduction from plaque in the ICA. The ECA PSV is 100 cm/s. There is antegrade flow in the left vertebral artery. IMPRESSION: 1. 50-69% stenosis in the right internal carotid artery. 2. <50% stenosis in the left internal carotid artery. Reviewed, dictated and finalized at location A.
== END 2024-12-29 16:30 | disposition home or self-care (01) ==
LOC: ANHIMG 16:30
PROVIDERS: PCP Family Medicine; Visit Provider Family Medicine
DX: I65.23 Occlusion and stenosis of bilateral carotid arteries (principal)
CPT/HCPCS: 93880

== ENCOUNTER 2025-01-06 09:45 | Outpatient (CLI) | payer MEDICARE, MEDICAID, SELFPAY ==
--- OUTSIDE RECORDS SUMMARY | 2006-10-22 11:11 | XMS_ITS | Continuity of Care Document ---
Author Organization [facility] Address [address] [place] [address] [address] [place] [address] Phone Care Team Providers Care Marketing Coordinator Name Role Phone Brown OD, Agapito Unavailable Unavailable Procedures Procedure Date Office/outpatient Visit, Est Office/outpatient Visit, Est Advance Directives Directive Yes / No Effective Date File Name No Information Encounters Encounter Description Practice Location Reason(s) For Visit Diagnoses Date Provider Providers Copied on Encounter Office/outpat ient Visit, [facility], [address] [place] [address] [address], [place], [place], [id number], tel:[phone] [facility] No Information 3-200 7 Brown OD Agapito. [address] , [address], [place], [place], [facility], . tel:[phone] Office/outpat ient Visit, [facility], [address] [place] [address] [address], [place], [place], [id number], tel:[phone] [facility] No Information 6-200 7 Brown OD Agapito. [address] , [address], [place], [address], [place]. tel:[phone] Referring Provider: Low Bui MD , [address] [facility] [address], [place], [address]. tel:[phone] Family History Family Member Type Diagnosis Age At Onset No Information Payers Payer name Insurance type Covered alliance party ID Authoriza tion(s) No Information Social History Type Description Quantity Date Captured Comments Sex Female Smoking Status No Information Chief Complaint And Reason For Visit No Information Reason For Referral Reason For Referral No Information History Of Present Illness Encounter Date Complaint History Of Prese nt Illness No Information Functional Status Date Functional Assessmen t No Information Instructions Date Instruction Additional Infor mation No Information Assessments Type Assessment Date No Information Patient Care Teams Name Effective Dates (start - stop) Status Members No Information
[2025-01-06 10:00] LABS: Hematocrit 49.6 % (37.0-47.0); Hemoglobin 17.2 g/dL (12.0-15.0); Immature Granulocyte Percent A 0.2 % (0-0.5); Lymphocytes Absolute Auto 1.86 K/mm3 (0.9-3.2); Mean Corpuscular HGB Conc 34.7 g/dl (32-36); Mean Corpuscular Hemoglobin 35.8 pg (26-34); Mean Corpuscular Volume 103.3 fl (80-100); Nucleated Red Blood Cells Absolute Auto 0.000 K/mm3 (0.0-0.012); Nucleated Red Blood Cells Perc 0.0 % (0.0-0.2); Platelet Count Result 224 k/mm3 (150-375); Red Blood Count 4.80 M/mm3 (4.2-5.4); White Blood Count 4.6 K/mm3 (4.5-10.0)
--- OUTSIDE RECORDS SUMMARY | 2025-01-06 10:25 | XMS_ITS | Clinical Summary ---
Author Organization [facility] Address [address] [facility] [place] [address] Care Team Providers Care Metal Annealer Name Role Phone Anuj Choudhary MD Primary Care Provider [phone] Source Comments [facility],non-owned Affiliates and Associated Physician Practices is amultiple site organization consisting of ambulatory clinics and hospital sitesin [place], [place], [place] and [place]. This disclosure is being madepursuant to the Care Everywhere program and may not contain all information available regarding this patient. Last updated 17.[facility] Allergies Active Allergy Reactions Criticality Noted Date [...] Take 1 tablet by mouth 1 Active [place]-3 Fatty Acids (FISH OIL) 1000 MG capsule [...] on file Legal Sex Female 5:48 PM APARTMENT RENTAL CLERK Gender Identity Not on file Sexual Orientation Not on file Last Filed Vital Signs Vital Sign Reading Time Taken Comments Blood Pressure 125/71 08/30/2021 10:02 AM CDT Pulse 72 08/30/2021 10:02 AM CDT Temperature 36.2 C (97.2 F) 03/03/2019 8:30 AM APARTMENT RENTAL CLERK Respiratory Rate 11 05/15/2016 2:45 PM CDT Oxygen Saturation 98% 08/30/2021 10:02 AM CDT Inhaled Oxygen Concentration - - Weight 95.7 kg (211 lb) 02/26/2018 8:06 AM APARTMENT RENTAL CLERK Height 165.1 cm (5' 5) 02/26/2018 8:06 AM APARTMENT RENTAL CLERK Body Mass Index 35.11 02/26/2018 8:06 AM APARTMENT RENTAL CLERK Plan of Treatment Health Maintenance Due Date [...] patient's age to complete this topic Insurance [facility] AETNA MEDICARE ADV SELF PAY NO INSURANCE Member Subscriber Plan / Payer (Ef fective for All Dates) Name:Tawanna Jones Member ID:Not on file Relation to Subscriber:Not on file Name:TAWANNA JONES Subscriber ID:Not on file (Home) Address: [address] [place] [phone] Payer ID:Not on file Group ID:Not on file Type:Self Pay Address: [place], [place] MEDICAID - OUT OF STATE Advance Directives * Full Code (Latest Code Status on File) Date Activated Date Inactivated Comments 03/21/2016 6:54 PM 03/22/2016 3:04 PM Care Teams Metal Annealer Relationship Specialty Start Date End Date Anuj Choudhary MD [address] [facility] [address] [place] [phone] PCP - General Family Medicine 03/11/16
--- OUTSIDE RECORDS SUMMARY | 2025-01-06 10:25 | XMS_ITS | Encounter Summary ---
Author Organization [facility] Address [address] [place] [address] Care Team Providers Care Hydrotreater Operator Name Role Phone Anuj Choudhary MD Primary Care Provider [phone] Encounter Details Date Type Department Care Team (Late st Contact Info) Description 07/21/2024 Lab Requisition [facility] - DermPath Lab [address] [place] [address] Jose A Gage MD [facility] [address] [place] [address] Neoplasm of uncertain behavior of skin; Other pruritus Social History Tobacco Use Types Packs/Day Years Used Date Smoking Tobacco: Every Day Cigarettes Smokeless Tobacco: Never Alcohol Use Standard Drinks/Week Comments No 0 (1 standard drink = 0.6 oz pur e alcohol) Comments No Sex and Gender Information Value Date Recorded Sex Assigned at Not on file Legal Sex Female 5:48 PM ACCESS DATABASE DEVELOPER Gender Identity Not on file Sexual Orientation Not on file documented as of this encounter Functional Status * Is person deaf or have serious hearing difficulty? Answer Date of Assessment Author No 03/21/2016 10:25 AM ACCESS DATABASE DEVELOPER Rosy Wagner RN * Is person blind [...] AM CDT) Case Report Dermatopathology Report Case: [id number] Authorizing Provider: Jose A Gage MD Collected: 07/21/2024 10:49 AM Ordering Location: [facility] - Received: 07/26/2024 06:58 AM [...] characteristic determined by the Dermatopathology Laboratory at [facility], directed by Dr. Kris Fernández. These tests need not be, and therefore are not, approved by the [place] Food and Drug Administration. The tests are used for clinical purposes. Billing Codes Specimen Charges Stain Charges 79603 1 1:54 PM CDT DERMATOPATHOLOGY LABORATORY Embedded Images 1:54 PM CDT DERMATOPATHOLOGY LABORATORY Pathology/Cytolo gy TISSUE SPECIMEN FROM SKIN / Unknown 07/21/2024 10:49 AM CDT 07/26/2024 6:58 AM CDT Jose A Gage MD LAB - PATHOLOGY/CYTOLOGY ORDE [facility] Final Result DERMATOPATHOLOGY LABORATORY [facility] Department of Dermatology [facility] Medicine [address] [place] [address], [address] [phone] documented in this encounter Visit Diagnoses Diagnosis Neoplasm of uncertain behavior of skin Other pruritus documented in this encounter Care Teams Hydrotreater Operator Relationship Specialty Start Date End Date Anuj Choudhary MD [address] [facility] [address] [address] PCP - General Family Medicine 03/11/16 documented as of this encounter
--- OUTSIDE RECORDS SUMMARY | 2025-01-06 10:25 | XMS_ITS | Clinical Summary ---
Author Organization [facility] Address [address] [facility] [place] [address] Care Team Providers Care Hardwood Flooring Specialist Name Role Phone Wander Velasquez MD Primary Care Provider [phone] Allergies Active Allergy Reactions Criticality Noted Date [...] on file Legal Sex Female 11:21 AM WORM RAISER Gender Identity Not on file Sexual Orientation [...] 165.1 cm (5' 5) 03/04/2024 10:29 AM WORM RAISER Body Mass Index 32.05 03/04/2024 10:29 AM WORM RAISER Plan of Treatment Upcoming Encounters Date Type Department Care Team (Late st Contact Info) Description 03/14/2025 2:00 PM WORM RAISER Office Visit [facility] Oncology and Hematology - [place] [address] [place] [address] Ethan Santos MD [address] [facility] [address] [place] [address] Health Maintenance Due Date Last [...] (1 of 2) 2006 OSTEOPOROSIS SCREENING 2021 Medicare Advantage ([place]) Prev entative Visit/Annual Wellness Visit 03/02/2024 INFLUENZA VACCINE (#1) 2024 12/02/2016 RSV VACCINE (60+ or ) (1 - 1-dose 75+ series) 11/25/2031 Insurance AETNA O [facility] Address: [facility] [id number] [place] [phone] Care Teams Hardwood Flooring Specialist Relationship Specialty Start Date End Date Wander Velasquez MD [address] [place] [address] PCP - General Family Practice 03/04/24
--- OUTSIDE RECORDS SUMMARY | 2025-01-06 10:25 | XMS_ITS | Clinical Summary ---
Author Organization [facility] Address [address] [place] [address] Phone Care Team Providers Care Paper Maker Name Role Phone Wander Joiner DO Unavailable [phone] Guilherme Felix MD Primary Care Provider [phone] Anuj Choudhary Unavailable Allergies Active Allergy Reactions Criticality Noted Date Comments Iron Rash 01/15/2016 Medications metFORMIN (GLUCOPHAGE) 500 MG Tablet Take 1 Tablet by mouth. 1 Active [place]-3 Fatty Acids (fish oil) 1200 MG Capsule [...] mouth. Active Cholecalciferol (Vitamin D3) 1.25 MG (74130 UT) Capsule TAKE 1 CAPSULE BY MOUTH [...] on file Legal Sex Female 11:37 AM CASING FINISHER AND STUFFER Gender Identity Not on file Sexual Orientation [...] to complete this topic Insurance MEDICARE C [facility] Care Teams Paper Maker Relationship Specialty Start Date End Date Guilherme Felix MD [address] [place] [address] PCP - General Family Medicine 08/12/22 Wander Joiner DO [address] [place] [phone] Consulting Physician Oncology 08/08/22 Anuj Choudhary [address] [place] [address] Family Medicine 08/12/22
--- OUTSIDE RECORDS SUMMARY | 2025-01-06 10:25 | XMS_ITS | Clinical Summary ---
Author Organization [facility] Address [facility] [place] [address] Care Team Providers Care Music Coordinator Name Role Phone Anuj Choudhary MD Primary Care Provider [phone] Social History Tobacco Use Types Packs/Day Years [...] age to complete this topic Care Teams Music Coordinator Relationship Specialty Start Date End Date Anuj Choudhary MD PCP - General 01/15/16
--- OUTSIDE RECORDS SUMMARY | 2025-01-06 10:25 | XMS_ITS | Encounter Summary ---
Author Organization [facility] Address [address] [place] [address] Phone Care Team Providers Care Spray Painter Name Role Phone Wander Joiner DO Unavailable [phone] Guilherme Felix MD Primary Care Provider [phone] Anuj Choudhary Unavailable Encounter Details Date Type Department Care Team (Late st Contact Info) Description 08/02/2024 Telephone [facility] [address] [place] [address] Wander Joiner, DO [address] [place] [address] Social History Tobacco Use Types [...] on file Legal Sex Female 11:37 AM COMMUNICATION SIGNALS INTELLIGENCE Gender Identity Not on file Sexual Orientation Not on file documented as of this encounter Miscellaneous Notes * Telephone Encounter - Rosy Hall - 08/02/2024 8:54 AM CDT FYI: Patient has decided to go see a high school business teacher that her pcp is sending her to in [place]. F/U appt has been cancelled. documented in this encounter Plan of Treatment Not on file documented as of this encounter Visit Diagnoses Not on filedocumented in this encounter Additional Health Concerns Assessment Noted Time PHQ-9 Depression Total Score: 0 05/07/19 17 9:54 AM COMMUNICATION SIGNALS INTELLIGENCE documented as of this encounter Care Teams Spray Painter Relationship Specialty Start Date End Date Guilherme Felix MD [address] [place] [address] PCP - General Family Medicine 08/12/22 Wander Joiner DO [address] [place] [phone] Consulting Physician Oncology 08/08/22 Anuj Choudhary [address] [place] [address] Family Medicine 08/12/22 documented as of this encounter
[2025-01-06 13:31] LABS: Anion Gap 5 mmol/L (4-12); Blood Urea Nitrogen 12 mg/dL (7-17); Calcium 8.9 mg/dL (8.4-10.2); Carbon Dioxide 25 mmol/L (22-30); Chloride 106 mmol/L (98-107); Estimated Glomerular Filt Rate > 60; Glucose 104 mg/dL (65-110); Potassium 4.5 mmol/L (3.4-5.0); Sodium 136 mmol/L (137-145)
== END 2025-01-06 09:46 | disposition home or self-care (01) ==
PROVIDERS: PCP Family Medicine; Visit Provider Internal Medicine Hematology & Oncology
DX: D75.1 Secondary polycythemia (principal)
CPT/HCPCS: 36415; 80048; 85025